=== PATIENT | female | born 1960 | race Caucasian/White ===

== ENCOUNTER 2020-04-15 09:47 | Inpatient (IN) | payer MEDICAID, OTHER ==
[2020-04-15] MEDS ORDERED: Sodium Chloride 0.9% 1,000 ML IV ONE (10:23)
[2020-04-15] MEDS ORDERED: Ondansetron 4 MG/2 ML SDV IVPUSH ONE (10:23)
[2020-04-15 10:56] LABS: CARBON DIOXIDE,CO2 5.7 mmol/L (21.0-32.0)
[2020-04-15] MEDS ORDERED: cefTRIAXone 2 GM in Premix Bag 1 BAG IV ONE (11:03)
[2020-04-15] MEDS ORDERED: Lactated Ringers 1,000 ML IV SCH (11:15)
--- NOTE | 2020-04-15 11:16 | EDM.PDOC ---
<Fela Bartlett - Last Filed: 04/15/20 16:44> ED HPI GENERAL MEDICAL PROBLEM - General Chief Complaint: Gastrointestinal Problem Stated Complaint: INFECTION Time Seen by Provider: 04/15/20 09:59 - History of Present Illness INITIAL COMMENTS - FREE TEXT/NARRATIVE: HISTORY AND PHYSICAL: History of present illness: Patient is a 60-year-old female who presents to the ED today with concern of vomiting, abdominal pain, and infection of her labia for the past 4 to 5 days. Patient states that she is had an infection of her labia for a few weeks and was placed on doxycycline and has been on this for 7 days. Patient states that she continues to have pain and some drainage of the labia. Patient states that 4 days ago she began vomiting and feeling unwell. Patient states today that she could not take the vomiting anymore so came to the ED to be evaluated. Patient states she also has some lower abdominal pain and has not had a bowel movement in 4 to 5 days. Patient states that she feels constipated. Patient states that she also feels slightly short of breath but not is not sure if this is related to vomiting. Patient denies fever, chills, chest pain, or cough. Denies headache, neck stiff ness, change in vision, syncope, or near syncope. Denies dysuria. Has not noted any blood in urine or stool. Review of systems: As per history of present illness and below otherwise all systems reviewed and negative. Past medical history: As per history of present illness and as reviewed below otherwise noncontributory. Surgical history: As per history of present illness and as reviewed below otherwise noncontributory. Social history: See social history for further information Family history: As per history of present illness and as reviewed below otherwise noncontributory. Physical exam: General: Patient is alert, oriented, and in no acute distress. Patient laying on exam table, periodically vomiting throughout exam, non toxic but tired appearing. HEENT: Atraumatic, normocephalic, pupils equal and reactive bilaterally, negative for conjunctival pallor or scleral icterus, mucous membranes dry, TMs normal bilaterally, throat clear, neck supple, nontender, trachea midline. No drooling or trismus noted. No meningeal signs. No hot potato voice noted. Lungs: Clear to auscultation, breath sounds equal bilaterally, chest nontender. Heart: S1S2, regular rate and rhythm without overt murmur Abdomen: Soft, nondistended, generalized abdominal tenderness. Scarring consistent with surgical history. Negative for masses or hepatosplenomegaly. Negative for costovertebral tenderness. Pelvis: Stable nontender. Genitourinary: There is a large, approximately 5cm abscess of the left labia majora with necrotic skin centrally over this area with surrounding cellulitis. This extends up into the mons pubis with area of induration from cellulitis. Rectal: Deferred. Skin: Intact, warm, dry. No lesions or rashes noted. Extremities: Atraumatic, negative for cords or calf pain. Neurovascular unremarkable. Neuro: Awake, alert, oriented. Cranial nerves II through XII unremarkable. Cerebellum unremarkable. Motor and sensory unremarkable throughout. Exam nonfocal. Notes: Dr. Chahal directly involved in patient care. Corrected sodium 145. Anion gap 30. Insulin Gtt started. Will switch to LR due to corrected Na being elevated. Dr. Esquivel, hospitalist, consulted on patient and has come in to personally evaluate patient. At this time, patient states she forgot to mention during initial HPI that she does have diabetes and manages this at home with diet and exercise and does not check sugars on a regular basis. I LINDSEY Jamison loan services professional, consulted on patient and states he will come in to personally see and evaluate the patient for further treatment of labial abscess. I do suspect that DKA is result from labial abscess/sepsis. Will admit to Dr. Esquivel, hospitalist on ICU inpatient with telemetry with consult to lindsey Jamison. Voices understanding and is agreeable to plan of care. Denies any further questions or concerns at this time. Diagnostics: CBC, CMP, UA/uhcg, EKG, Trop, Serum osmolality, Zofran, VBG, Abd/pelvic ct, blood culture x 2, lactate Therapeutics: 1LNS, LR 1.5L, Insulin gtt, Rocephin 2g IV, 1.5g Vancomycin IV Impression: Labial abscess Sepsis Diabetic Ketoacidosis Urinary tract infection Plan: Admit to Dr. Esquivel on telemetry ICU inpatient with consult to LINDSEY Jamison. Definitive disposition and diagnosis as appropriate pending reevaluation and review of above. abdominal/chest Pain Score (Numeric/FACES): 5 - Related Data Allergies Allergy/AdvReac Type Severity Reaction Status Date / Time Sulfa (Sulfonamide Allergy Hives Verified 04/15/20 09:57 Antibiotics) Home Meds: Home Meds . [No Known Home Meds] 04/15/20 [History] Past Medical History - Infectious Disease History Infectious Disease History: Reports: Chicken Pox - Past Surgical History Female Surgical History: Reports: Section Social & Family History - Family History Family Medical History: Noncontributory - Tobacco Use Smoking Status *Q: Never Smoker - Caffeine Use Caffeine Use: Reports: None - Recreational Drug Use Recreational Drug Use: No ED ROS GENERAL - Review of Systems Review Of Systems: Comprehensive ROS is negative, except as noted in HPI. ED EXAM, GENERAL - Physical Exam Exam: See Below (see dictation) Departure - Departure Time of Disposition: 16:53 Disposition: Admitted As Inpatient 68 Clinical Impression: Labial abscess Diabetic ketoacidosis Qualifiers: Diabetes mellitus type: other specified (including KIT) Diabetes mellitus complication detail: without coma Qualified Code(s): E13.10 - Other specified diabetes mellitus with ketoacidosis without coma Sepsis Qualifiers: Sepsis type: sepsis due to unspecified organism Sepsis acute organ dysfunction status: unspecified Qualified Code(s): A41.9 - Sepsis, unspecified organism Urinary tract infection Qualifiers: Urinary tract infection type: acute cystitis Hematuria presence: with hematuria Qualified Code(s): N30.01 - Acute cystitis with hematuria - Discharge Information Sepsis Event Note (ED) - Evaluation Sepsis Screening Result: No Definite Risk <Mohsen Chahal - Last Filed: 04/15/20 18:19> Course - Vital Signs Last Recorded V/S: Last Vital Signs Temp 98.1 F 04/15/20 17:00 Pulse 93 04/15/20 17:00 Resp 15 04/15/20 17:00 BP 119/63 04/15/20 17:00 Pulse Ox 99 04/15/20 17:00 - Orders/Labs/Meds Orders: Active Orders 24 hr Category Date Time Status EKG Documentation Completion [RC] STAT Care 04/15/20 10:26 Active CULTURE BLOOD [BC] Stat Lab 04/15/20 11:12 Received CULTURE BLOOD [BC] Stat Lab 04/15/20 11:28 Received CULTURE URINE [RM] Stat Lab 04/15/20 13:08 Received OSMOLALITY - SERUM [REF] Stat Lab 04/15/20 11:31 Received Insulin Regular, Human [NovoLIN R] 100 unit Med 04/15/20 11:15 Active Sodium Chloride 0.9% [Normal Saline] 99 ml IV TITRATE Lactated Ringers [Ringers, Lactated] 1,000 ml Med 04/15/20 11:15 Active IV ASDIRECTED Blood Culture x2 Reflex Set [OM.PC] Stat Oth 04/15/20 11:00 Ordered Medication Orders Lactated Ringer's (Ringers, Lactated) 1,000 mls @ 999 mls/hr IV ASDIRECTED ALISA Last Admin: 04/15/20 12:52 Dose: 999 mls/hr Documented by: MAGALY Insulin Human Regular 100 unit (/ Sodium Chloride) 100 mls @ 6 mls/hr IV TIT RATE ALISA; Protocol Last Titration: 04/15/20 18:17 Dose: 3 unit/hr, 3 mls/hr Documented by: SUSAN Cosigned by: DAWN Titration: 04/15/20 17:15 Dose: 4 unit/hr, 4 mls/hr Documented by: SUSAN Cosigned by: [email or web address] Titration: 04/15/20 16:07 Dose: 4 unit/hr, 4 mls/hr Documented by: SUSAN Cosigned by: [email or web address] Titration: 04/15/20 15:05 Dose: 6 unit/hr, 6 mls/hr Documented by: SUSAN Cosigned by: [email or web address] Titration: 04/15/20 14:21 Dose: 6 unit/hr, 6 mls/hr Documented by: SUSAN Cosigned by: [email or web address] Admin: 04/15/20 12:43 Dose: 6 unit/hr, 6 mls/hr Documented by: TE Cosigned by: MAGALY Lactated Ringer's (Ringers, Lactated) 1,000 mls @ 999 mls/hr IV ASDIRECTED ALISA Sodium Chloride (Normal Saline) 1,000 mls @ 200 mls/hr IV CONTINUOUS ONE Stop: 04/15/20 20:05 Last Admin: 04/15/20 15:31 Dose: 200 mls/hr Documented by: SUSAN Pantoprazole Sodium 40 mg/ (Sodium Chloride) 10 mls @ 300 mls/hr IV DAILY ON LICENSE OF [facility] Last Admin: 04/15/20 17:17 Dose: 300 mls/hr Documented by: AGUSTINSAN Ceftriaxone Sodium 1 gm/ (Sodium Chloride) 50 mls @ 100 mls/hr IV Q24H ON LICENSE OF [facility] Vancomycin HCl 1.25 gm/ Sodium (Chloride) 250 mls @ 166.667 mls/hr IV Q12H ON LICENSE OF [facility] Morphine Sulfate (Morphine) 1 mg IVPUSH Q3H PRN PRN Reason: Pain Ondansetron HCl (Zofran) 8 mg IVPUSH Q6H PRN PRN Reason: Nausea Vancomycin HCl (Pharmacy To Dose - Vancomycin) 1 dose .XX ASDIRECTED ON LICENSE OF [facility] Labs: Laboratory Tests 04/15/20 04/15/20 04/15/20 Range/Units 10:12 10:12 10:12 WBC 19.97 H (4.0-11.0) K/uL RBC 4.76 (4.30-5.90) M/uL Hgb 13.9 (12.0-16.0) g/dL Hct 42.6 (36.0-46.0) % MCV 89.5 (80.0-98.0) fL MCH 29.2 (27.0-32.0) pg MCHC 32.6 (31.0-37.0) g/dL RDW Std Deviation 42.8 (28.0-62.0) fl RDW Coeff of Harshil 13 (11.0-15.0) % Plt Count 554 H (150-400) K/uL MPV 9.90 (7.40-12.00) fL Add Manual Diff YES Neutrophils % (Manual) 69 (48.0-80.0) % Band Neutrophils % 13 % Lymphocytes % (Manual) 16 (16.0-40.0) % Monocytes % (Manual) 2 (0.0-15.0) % Nucleated RBC % 0.0 /100WBC Absolute Seg Neuts 13.8 H (1.4-5.7) Band Neutrophils # 2.6 Lymphocytes # (Manual) 3.2 H (0.6-2.4) Monocytes # (Manual) 0.4 (0.0-0.8) Nucleated RBCs # 0 K/uL VBG pH (7.31-7.41) VBG pCO2 (35-45) mmHG VBG pO2 (30-40) mmHG VBG HCO3 (22-30) mEq/L VBG Total CO2 (41-51) mmol/L VBG Base Excess (-3.0-3.0) Lactate (0.20-2.00) mmol/L Sodium 137 (136-145) mmol/L Potassium 5.0 (3.5-5.1) mmol/L Chloride 101 (98-107) mmol/L Carbon Dioxide 5.7 L (21.0-32.0) mmol/L BUN 16 (7.0-18.0) mg/dL Creatinine 1.2 H (0.6-1.0) mg/dL Est Cr Clr Drug Dosing 42.27 mL/min Estimated GFR (MDRD) 46.1 ml/min Glucose 424 H (74-106) mg/dL Hemoglobin A1c (4.5-6.2) % Calcium 9.5 (8.5-10.1) mg/dL Total Bilirubin 0.5 (0.2-1.0) mg/dL AST 11 L (15-37) IU/L ALT 15 (14-63) IU/L Alkaline Phosphatase 166 H (46-116) U/L Troponin I < 0.050 (0.000-0.056) ng/mL Total Protein 8.5 H (6.4-8.2) g/dL Albumin 3.3 L (3.4-5.0) g/dL Globulin 5.2 H (2.6-4.0) g/dL Albumin/Globulin Ratio 0.6 L (0.9-1.6) Lipase 78 (73-393) U/L Ketones (NEG) 04/15/20 04/15/20 04/15/20 Range/Units 10:12 10:12 10:12 WBC (4.0-11.0) K/uL RBC (4.30-5.90) M/uL Hgb (12.0-16.0) g/dL Hct (36.0-46.0) % MCV (80.0-98.0) fL MCH (27.0-32.0) pg MCHC (31.0-37.0) g/dL RDW Std Deviation (28.0-62.0) fl RDW Coeff of Harshil (11.0-15.0) % Plt Count (150-400) K/uL MPV (7.40-12.00) fL Add Manual Diff Neutrophils % (Manual) (48.0-80.0) % Band Neutrophils % % Lymphocytes % (Manual) (16.0-40.0) % Monocytes % (Manual) (0.0-15.0) % Nucleated RBC % /100WBC Absolute Seg Neuts (1.4-5.7) Band Neutrophils # Lymphocytes # (Manual) (0.6-2.4) Monocytes # (Manual) (0.0-0.8) Nucleated RBCs # K/uL VBG pH 7.04 L (7.31-7.41) VBG pCO2 20 L (35-45) mmHG VBG pO2 39 (30-40) mmHG VBG HCO3 5 L (22-30) mEq/L VBG Total CO2 5 L (41-51) mmol/L VBG Base Excess -23.7 L (-3.0-3.0) Lactate 1.8 (0.20-2.00) mmol/L Sodium (136-145) mmol/L Potassium (3.5-5.1) mmol/L Chloride (98-107) mmol/L Carbon Dioxide (21.0-32.0) mmol/L BUN (7.0-18.0) mg/dL Creatinine (0.6-1.0) mg/dL Est Cr Clr Drug Dosing mL/min Estimated GFR (MDRD) ml/min Glucose (74-106) mg/dL Hemoglobin A1c (4.5-6.2) % Calcium (8.5-10.1) mg/dL Total Bilirubin (0.2-1.0) mg/dL AST (15-37) IU/L ALT (14-63) IU/L Alkaline Phosphatase (46-116) U/L Troponin I (0.000-0.056) ng/mL Total Protein (6.4-8.2) g/dL Albumin (3.4-5.0) g/dL Globulin (2.6-4.0) g/dL Albumin/Globulin Ratio (0.9-1.6) Lipase (73-393) U/L Ketones SMALL H (NEG) 04/15/20 Range/Units 10:12 WBC (4.0-11.0) K/uL RBC (4.30-5.90) M/uL Hgb (12.0-16.0) g/dL Hct (36.0-46.0) % MCV (80.0-98.0) fL MCH (27.0-32.0) pg MCHC (31.0-37.0) g/dL RDW Std Deviation (28.0-62.0) fl RDW Coeff of Harshil (11.0-15.0) % Plt Count (150-400) K/uL MPV (7.40-12.00) fL Add Manual Diff Neutrophils % (Manual) (48.0-80.0) % Band Neutrophils % % Lymphocytes % (Manual) (16.0-40.0) % Monocytes % (Manual) (0.0-15.0) % Nucleated RBC % /100WBC Absolute Seg Neuts (1.4-5.7) Band Neutrophils # Lymphocytes # (Manual) (0.6-2.4) Monocytes # (Manual) (0.0-0.8) Nucleated RBCs # K/uL VBG pH (7.31-7.41) VBG pCO2 (35-45) mmHG VBG pO2 (30-40) mmHG VBG HCO3 (22-30) mEq/L VBG Total CO2 (41-51) mmol/L VBG Base Excess (-3.0-3.0) Lactate (0.20-2.00) mmol/L Sodium (136-145) mmol/L Potassium (3.5-5.1) mmol/L Chloride (98-107) mmol/L Carbon Dioxide (21.0-32.0) mmol/L BUN (7.0-18.0) mg/dL Creatinine (0.6-1.0) mg/dL Est Cr Clr Drug Dosing mL/min Estimated GFR (MDRD) ml/min Glucose (74-106) mg/dL Hemoglobin A1c 12.1 H (4.5-6.2) % Calcium (8.5-10.1) mg/dL Total Bilirubin (0.2-1.0) mg/dL AST (15-37) IU/L ALT (14-63) IU/L Alkaline Phosphatase (46-116) U/L Troponin I (0.000-0.056) ng/mL Total Protein (6.4-8.2) g/dL Albumin (3.4-5.0) g/dL Globulin (2.6-4.0) g/dL Albumin/Globulin Ratio (0.9-1.6) Lipase (73-393) U/L Ketones (NEG) Meds: Medications Generic Name Dose Route Start Last Admin Trade Name Freq PRN Reason Stop Dose Admin Lactated Ringer's 1,000 mls @ 999 mls/hr 04/15/20 11:15 04/15/20 12:52 Ringers, Lactated IV 999 mls/hr ASDIRECTED ALISA Administration Insulin Human Regular 100 unit 100 mls @ 6 mls/hr 04/15/20 11:15 04/15/20 18:17 / Sodium Chloride IV 3 unit/hr TITRATE ALISA 3 mls/hr Titration Protocol 6 UNIT/HR Lactated Ringer's 1,000 mls @ 999 mls/hr 04/15/20 11:15 Ringers, Lactated IV ASDIRECTED ALISA Sodium Chloride 1,000 mls @ 200 mls/hr 04/15/20 15:06 04/15/20 15:31 Normal Saline IV 04/15/20 20:05 200 mls/hr CONTINUOUS ONE Administration Pantoprazole Sodium 40 mg/ 10 mls @ 300 mls/hr 04/15/20 16:15 04/15/20 17:17 Sodium Chloride IV 300 mls/hr DAILY ALISA Administration Ceftriaxone Sodium 1 gm/ 50 mls @ 100 mls/hr 04/16/20 12:00 Sodium Chloride IV Q24H ALISA Vancomycin HCl 1.25 gm/ Sodium 250 mls @ 166.667 mls/hr 04/16/20 01:00 Chloride IV Q12H ALISA Morphine Sulfate 1 mg 04/15/20 16:11 Morphine IVPUSH Q3H PRN Pain Ondansetron HCl 8 mg 04/15/20 15:09 Zofran IVPUSH Q6H PRN Nausea Vancomycin HCl 1 dose 04/15/20 17:30 Pharmacy To Dose - Vancomycin .XX ASDIRECTED ALISA Discontinued Medications Generic Name Dose Route Start Last Admin Trade Name Freq PRN Reason Stop Dose Admin Sodium Chloride 1,000 mls @ 999 mls/hr 04/15/20 10:23 04/15/20 10:37 Normal Saline IV 04/15/20 11:23 999 mls/hr BOLUS ONE Administration Ceftriaxone Sodium/Dextrose 2 50 mls @ 100 mls/hr 04/15/20 11:03 04/15/20 11:14 gm/ Premix IV 04/15/20 11:32 100 mls/hr ONETIME ONE Administration Vancomycin HCl 1.5 gm/ Premix 300 mls @ 150 mls/hr 04/15/20 12:30 04/15/20 12:52 IV 04/15/20 14:29 150 mls/hr ONETIME ONE Administration Insulin Human Regular Confirm 04/15/20 12:46 04/15/20 12:52 Novolin R Administered 04/15/20 12:47 Not Given Dose 1,000 unit .ROUTE .STK-MED ONE Iopamidol 80 ml 04/15/20 13:07 04/15/20 13:08 Isovue Multipack-370 (76%) IVPUSH 04/15/20 13:08 80 ml ONETIME ONE Administration Ondansetron HCl 4 mg 04/15/20 10:23 04/15/20 10:37 Zofran IVPUSH 04/15/20 10:24 4 mg ONETIME ONE Administration Sepsis Event Note (ED) - Focused Exam Vital Signs: Vital Signs Temp Pulse Resp BP Pulse Ox 04/15/20 10:18 95 131/75 100 04/15/20 09:57 97.7 F 96 20 139/67 99
--- NOTE | 2020-04-15 11:22 | PCM.SN.2 ---
- Free Text/Narrative Note: Attending physician note I have seen and evaluated the patient with the advanced practice provider. Chief Complaint: And vomiting Brief HPI: 60-year-old female presents with generalized malaise, nausea, vomiting and no bowel movements with diffuse nonspecific abdominal pain. No previous history of diabetes. ROS: Reviewed and agree Focused Exam: VITAL SIGNS: Reviewed. GENERAL: Awake, conversant, GCS 15, appears moderately ill HEAD: No visible signs of trauma EYES: Pupils equal, EOM grossly intact EARS: Hearing grossly intact. MOUTH: No visible lesions, dry mucous membranes NECK: Appears supple CHEST: Tachypnea is present without accessory muscle use, clear lung sounds CARDIAC: Tachycardia. Regular rhythm. ABDOMEN: Soft, diffusely tender without focal findings. No rebound or guarding. No pulsatile mass. No masses. NEUROLOGIC EXAM: Awake and Alert, non-focal SKIN: No visible rashes EXTREMITIES: No deformities noted VASCULAR: Appears well perfused 12 lead EKG interpretation Obtained: April 15, 2020 at 10:42 AM Rhythm: Sinus tachycardia Rate: 101 Ione: Left Ione deviation Intervals: Left anterior fascicular block pattern is present ST/T Segments: ST depressions in leads V4, V5 and V6 less than 1 mm Interpretation: Sinus tachycardia with left axis deviation and ST depressions in V4 through V6 Procedure: Limited Abdominal Ultrasound - evaluation for small bowel obstruction Performed and interpreted by me; images recorded and archived Indication: Abdominal distention, vomiting and concern for small bowel obstruction Findings: -Multiple dilated loops of bowel are not present -No evidence of peristalsis or fluid-filled bowels -No free fluid noted Interpretation: Small bowel obstruction highly unlikely Signed by Mohsen Chahal M.D. Critical Care Note: The patient presented in critical status due to acute diabetic ketoacidosis with elevated anion gap and concern for early sepsis The patient required rapid exam, decision making, and frequent re-evaluations during their time in the Emergency Department. Total Critical Care time exclusive of all other billable procedure time provided by myself 77 minutes Differential diagnosis and medical decision making: I considered the following entities in the differential diagnosis: hypoglycemia, electrolyte imbalance, sepsis, toxidrome/intoxication/medication effect, seizure or postictal state, acid/base disturbance, diabetic ketoacidosis. The patient has an elevated anion gap greater than 30, very low bicarb, leukocytosis, and Assessment & Plan: 1. Diabetic ketoacidosis new diagnosis 2. Corrected sodium shows hyponatremia 145 3. Leukocytosis with left shift and bandemia 4. Metabolic acidosis with elevated anion gap greater than 30 5. Normal renal function with creatinine 1.2 6. Elevated potassium at 5.0 7. Severe dehydration We will start an insulin drip without bolus given recommendations that show bolus dosing of insulin increases morbidity and mortality and may lead to cerebral edema. The patient does not require potassium added to her IV fluids at this point. Given the corrected sodium of 145 (Espitia correction) we will switch from normal saline after initial bolus to lactated Ringer's. Given the patient has a leukocytosis with left shift and bandemia we will give empiric antibiotics. The metabolic acidosis and elevated anion gap are likely secondary to the patient's DKA however a lactate is pending. Blood cultures are also pending. We will also perform a vaginal exam to look for occult infection.
[2020-04-15] MEDS ORDERED: Vancomycin 1,500 GM in Sodium Chloride 0.9% 250 ML IV ONE (11:44)
[2020-04-15] MEDS ORDERED: Insulin Regular, Human 100 Units/ML 10 ML Vial ONE (12:46)
[2020-04-15] MEDS ORDERED: Iopamidol 755 MG/ML 200 ML Multipack Bottle IVPUSH ONE (13:07)
--- NOTE | 2020-04-15 13:30 | CT ---
Indication: Labial abscess Technique: Postcontrast CT pelvis performed. 80 cc Isovue 370 administered intravenously. Please note that all CT scans at this facility use dose modulation, iterative reconstruction, and/or weight-based dosing when appropriate to reduce radiation dose to as low as reasonably achievable. Comparison: No comparisons Findings: Left labral subcutaneous fluid collection is present measuring 4.3 x 2.2 x 3.5 centimeter) AP, LR, cc). Adjacent stranding noted. Some of the fluid extends into the superolateral subcutaneous fat. Adjacent reactive left inguinal lymph nodes. Bladder distended. No adnexal mass. Uterus normal. No bowel obstruction. Postoperative changes to the lower abdominal wall. Degenerative changes. No fracture. No free air. Impression: Left labral subcutaneous abscess measuring 4.3 x 2.2 x 3.5 centimeters with adjacent inflammatory stranding and fluid extending superolaterally. Please note that all CT scans at this facility use dose modulation, iterative reconstruction, and/or weight-based dosing when appropriate to reduce radiation dose to as low as reasonably achievable. Dictated by Adam Zendejas MD @ Apr 15 2020 1:25PM Signed by Dr. Adam Zendejas @ Apr 15 2020 1:29PM
--- NOTE | 2020-04-15 13:49 | CR ---
INDICATION: Shortness of breath TECHNIQUE: Single view chest. FINDINGS: The lungs are clear. The heart, mediastinum and pulmonary vessels are of normal size. There is no evidence of pleural disease. IMPRESSION: Negative chest. Dictated by Chiara Méndez MD @ Apr 15 2020 1:47PM Signed by Dr. Chiara Méndez @ Apr 15 2020 1:48PM
[2020-04-15] MEDS: Lactated Ringers 1,000 ML IV SCH (15:15)
[2020-04-15] MEDS: Sodium Chloride 0.9% 1,000 ML IV ONE ×2 (15:31→20:14)
[2020-04-15 15:38] LABS: CARBON DIOXIDE,CO2 5.2 mmol/L (21.0-32.0); POTASSIUM,K 4.5 mmol/L (3.5-5.1)
[2020-04-15 15:42] LABS: HEMOGLOBIN A1C 12.1 % (4.5-6.2)
--- NOTE | 2020-04-15 16:23 | PCM.HP.2 ---
H&P History of Present Illness - General Date of Service: 04/15/20 Admit Problem/Dx: Admission Diagnosis/Problem Admission Diagnosis/Problem Diabetic ketoacidosis Source of Information: Patient History Limitations: Reports: No Limitations - History of Present Illness Initial Comments - Free Text/Narative: Patient is a 60-year-old female with significant past medical history of type 2 diabetes presenting today with increasing nausea and vomiting x4 to 5 days and worsening infection over her labia. Was placed on doxycycline provided from an outpatient facility 7 days prior and for completed the course however noticed that the drainage from the labia increasing and nausea and vomiting had worsened. Denies any fevers or chills but has noted no bowel movements x 3 to 4 days. Diabetes: Mentions being diagnosed with diabetes many years earlier and had made an effort to lose weight; succeeded in losing 100 pounds and believes her diabetes had been under control. Denies any recent increase in urination, hunger or polyuria. ED course: Anion gap noted of 30; insulin drip started with concerns for diabetic ketoacidosis 2 L of fluid provided; Leukocytosis in setting of labial abscess as confirmed on CT pelvis: Patient started on vancomycin and ceftriaxone; Lactic acid 1.5; patient afebrile; with nominal blood pressure. Consultation to OB provider from ED placed for abscess formation in left labial majora Bedside; patient complaining of increasing thirst and mild nausea; states abdominal pain is improving but is complaining of pain in her groin has not changed. abdominal/chest Pain Score (Numeric/FACES): 5 - Related Data Allergies/Adverse Reactions: Allergies Allergy/AdvReac Type Severity Reaction Status Date / Time Sulfa (Sulfonamide Allergy Hives Verified 04/15/20 09:57 Antibiotics) Home Medications: Home Meds . [No Known Home Meds] 04/15/20 [History] Past Medical History - Infectious Disease History Infectious Disease History: Reports: Chicken Pox - Past Surgical History Female Surgical History: Reports: Section Social & Family History - Family History Family Medical History: Noncontributory - Tobacco Use Smoking Status *Q: Never Smoker - Caffeine Use Caffeine Use: Reports: None - Recreational Drug Use Recreational Drug Use: No H&P Review of Systems - Review of Systems: Review Of Systems: See Below General: Reports: Chills, Fatigue. Denies: Fever HEENT: Reports: No Symptoms Pulmonary: Reports: No Symptoms Cardiovascular: Reports: No Symptoms Gastrointestinal: Reports: Constipation, Decreased Appetite, Nausea, Other (one small stool this AM w. some blood ). Denies: Abdominal Pain, Diarrhea Genitourinary: Reports: No Symptoms Musculoskeletal: Reports: No Symptoms Skin: Reports: No Symptoms Psychiatric: Reports: No Symptoms Neurological: Reports: No Symptoms Exam - Exam Exam: See Below - Vital Signs Vital Signs: Last Vital Signs Temp 98.8 F 04/15/20 15:00 Pulse 97 04/15/20 15:00 Resp 21 H 04/15/20 15:00 BP 114/61 04/15/20 15:00 Pulse Ox 99 04/15/20 15:00 Weight: 85.275 kg - Exam Quality Assessment: No: Supplemental Oxygen General: Alert, Oriented, Cooperative HEENT: EOMI, Other (oral mucosa dry; sucking on ice chips during bedside examination ) Neck: Supple, Trachea Midline Lungs: Clear to Auscultation, Normal Respiratory Effort Cardiovascular: Regular Rate, Regular Rhythm GI/Abdominal Exam: Soft (Female) Exam: Other (8 cm lesion w. central necrosis noted w. surrounding cellulitis; celluliutis extends to mon pubis w. induration (examination performed in ED w. attending kevin duncan staff at bedside) ) Back Exam: Full Range of Motion Extremities: Normal Inspection Skin: Warm Neurological: Cranial Nerves Intact Neuro Extensive - Mental Status: Alert, Oriented x3 - Patient Data Lab Results Last 24 hrs: Laboratory Results - last 24 hr 04/15/20 04/15/20 04/15/20 Range/Units 10:12 10:12 10:12 WBC 19.97 H (4.0-11.0) K/uL RBC 4.76 (4.30-5.90) M/uL Hgb 13.9 (12.0-16.0) g/dL Hct 42.6 (36.0-46.0) % MCV 89.5 (80.0-98.0) fL MCH 29.2 (27.0-32.0) pg MCHC 32.6 (31.0-37.0) g/dL RDW Std Deviation 42.8 (28.0-62.0) fl RDW Coeff of Harshil 13 (11.0-15.0) % Plt Count 554 H (150-400) K/uL MPV 9.90 (7.40-12.00) fL Add Manual Diff YES Neutrophils % (Manual) 69 (48.0-80.0) % Band Neutrophils % 13 % Lymphocytes % (Manual) 16 (16.0-40.0) % Monocytes % (Manual) 2 (0.0-15.0) % Nucleated RBC % 0.0 /100WBC Absolute Seg Neuts 13.8 H (1.4-5.7) Band Neutrophils # 2.6 Lymphocytes # (Manual) 3.2 H (0.6-2.4) Monocytes # (Manual) 0.4 (0.0-0.8) Nucleated RBCs # 0 K/uL VBG pH (7.31-7.41) VBG pCO2 (35-45) mmHG VBG pO2 (30-40) mmHG VBG HCO3 (22-30) mEq/L VBG Total CO2 (41-51) mmol/L VBG Base Excess (-3.0-3.0) Lactate (0.20-2.00) mmol/L Sodium 137 (136-145) mmol/L Potassium 5.0 (3.5-5.1) mmol/L Chloride 101 (98-107) mmol/L Carbon Dioxide 5.7 L (21.0-32.0) mmol/L BUN 16 (7.0-18.0) mg/dL Creatinine 1.2 H (0.6-1.0) mg/dL Est Cr Clr Drug Dosing 42.27 mL/min Estimated GFR (MDRD) 46.1 ml/min Glucose 424 H (74-106) mg/dL POC Glucose (60-110) mg/dL Hemoglobin A1c (4.5-6.2) % Calcium 9.5 (8.5-10.1) mg/dL Total Bilirubin 0.5 (0.2-1.0) mg/dL AST 11 L (15-37) IU/L ALT 15 (14-63) IU/L Alkaline Phosphatase 166 H (46-116) U/L Troponin I < 0.050 (0.000-0.056) ng/mL Total Protein 8.5 H (6.4-8.2) g/dL Albumin 3.3 L (3.4-5.0) g/dL Globulin 5.2 H (2.6-4.0) g/dL Albumin/Globulin Ratio 0.6 L (0.9-1.6) Lipase 78 (73-393) U/L Urine Color Urine Appearance Urine pH (5.0-8.0) Ur Specific [place] (1.001-1.035) Urine Protein (NEGATIVE) mg/dL Urine Glucose (UA) (NEGATIVE) mg/dL Urine Ketones (NEGATIVE) mg/dL Urine Occult Blood (NEGATIVE) Urine Nitrite (NEGATIVE) Urine Bilirubin (NEGATIVE) Urine Urobilinogen (<2.0) EU/dL Ur Leukocyte Esterase (NEGATIVE) Urine RBC (0-2/HPF) Urine WBC (0-5/HPF) Ur Epithelial Cells (NONE-FEW) Urine Bacteria (NEGATIVE) Urine HCG, Qual (NEGATIVE) Ketones (NEG) COVID-19 (SULLY) (NEGATIVE) 04/15/20 04/15/20 04/15/20 Range/Units 10:12 10:12 10:12 WBC (4.0-11.0) K/uL RBC (4.30-5.90) M/uL Hgb (12.0-16.0) g/dL Hct (36.0-46.0) % MCV (80.0-98.0) fL MCH (27.0-32.0) pg MCHC (31.0-37.0) g/dL RDW Std Deviation (28.0-62.0) fl RDW Coeff of Harshil (11.0-15.0) % Plt Count (150-400) K/uL MPV (7.40-12.00) fL Add Manual Diff Neutrophils % (Manual) (48.0-80.0) % Band Neutrophils % % Lymphocytes % (Manual) (16.0-40.0) % Monocytes % (Manual) (0.0-15.0) % Nucleated RBC % /100WBC Absolute Seg Neuts (1.4-5.7) Band Neutrophils # Lymphocytes # (Manual) (0.6-2.4) Monocytes # (Manual) (0.0-0.8) Nucleated RBCs # K/uL VBG pH 7.04 L (7.31-7.41) VBG pCO2 20 L (35-45) mmHG VBG pO2 39 (30-40) mmHG VBG HCO3 5 L (22-30) mEq/L VBG Total CO2 5 L (41-51) mmol/L VBG Base Excess -23.7 L (-3.0-3.0) Lactate 1.8 (0.20-2.00) mmol/L Sodium (136-145) mmol/L Potassium (3.5-5.1) mmol/L Chloride (98-107) mmol/L Carbon Dioxide (21.0-32.0) mmol/L BUN (7.0-18.0) mg/dL Creatinine (0.6-1.0) mg/dL Est Cr Clr Drug Dosing mL/min Estimated GFR (MDRD) ml/min Glucose (74-106) mg/dL POC Glucose (60-110) mg/dL Hemoglobin A1c (4.5-6.2) % Calcium (8.5-10.1) mg/dL Total Bilirubin (0.2-1.0) mg/dL AST (15-37) IU/L ALT (14-63) IU/L Alkaline Phosphatase (46-116) U/L Troponin I (0.000-0.056) ng/mL Total Protein (6.4-8.2) g/dL Albumin (3.4-5.0) g/dL Globulin (2.6-4.0) g/dL Albumin/Globulin Ratio (0.9-1.6) Lipase (73-393) U/L Urine Color Urine Appearance Urine pH (5.0-8.0) Ur Specific [place] (1.001-1.035) Urine Protein (NEGATIVE) mg/dL Urine Glucose (UA) (NEGATIVE) mg/dL Urine Ketones (NEGATIVE) mg/dL Urine Occult Blood (NEGATIVE) Urine Nitrite (NEGATIVE) Urine Bilirubin (NEGATIVE) Urine Urobilinogen (<2.0) EU/dL Ur Leukocyte Esterase (NEGATIVE) Urine RBC (0-2/HPF) Urine WBC (0-5/HPF) Ur Epithelial Cells (NONE-FEW) Urine Bacteria (NEGATIVE) Urine HCG, Qual (NEGATIVE) Ketones SMALL H (NEG) COVID-19 (SULLY) (NEGATIVE) 04/15/20 04/15/20 04/15/20 Range/Units 10:12 12:48 13:08 WBC (4.0-11.0) K/uL RBC (4.30-5.90) M/uL Hgb (12.0-16.0) g/dL Hct (36.0-46.0) % MCV (80.0-98.0) fL MCH (27.0-32.0) pg MCHC (31.0-37.0) g/dL RDW Std Deviation (28.0-62.0) fl RDW Coeff of Harshil (11.0-15.0) % Plt Count (150-400) K/uL MPV (7.40-12.00) fL Add Manual Diff Neutrophils % (Manual) (48.0-80.0) % Band Neutrophils % % Lymphocytes % (Manual) (16.0-40.0) % Monocytes % (Manual) (0.0-15.0) % Nucleated RBC % /100WBC Absolute Seg Neuts (1.4-5.7) Band Neutrophils # Lymphocytes # (Manual) (0.6-2.4) Monocytes # (Manual) (0.0-0.8) Nucleated RBCs # K/uL VBG pH (7.31-7.41) VBG pCO2 (35-45) mmHG VBG pO2 (30-40) mmHG VBG HCO3 (22-30) mEq/L VBG Total CO2 (41-51) mmol/L VBG Base Excess (-3.0-3.0) Lactate (0.20-2.00) mmol/L Sodium (136-145) mmol/L Potassium (3.5-5.1) mmol/L Chloride (98-107) mmol/L Carbon Dioxide (21.0-32.0) mmol/L BUN (7.0-18.0) mg/dL Creatinine (0.6-1.0) mg/dL Est Cr Clr Drug Dosing mL/min Estimated GFR (MDRD) ml/min Glucose (74-106) mg/dL POC Glucose 387 H (60-110) mg/dL Hemoglobin A1c 12.1 H (4.5-6.2) % Calcium (8.5-10.1) mg/dL Total Bilirubin (0.2-1.0) mg/dL AST (15-37) IU/L ALT (14-63) IU/L Alkaline Phosphatase (46-116) U/L Troponin I (0.000-0.056) ng/mL Total Protein (6.4-8.2) g/dL Albumin (3.4-5.0) g/dL Globulin (2.6-4.0) g/dL Albumin/Globulin Ratio (0.9-1.6) Lipase (73-393) U/L Urine Color YELLOW Urine Appearance SLT CLOUDY Urine pH 5.5 (5.0-8.0) Ur Specific [place] >= 1.030 (1.001-1.035) Urine Protein 30 H (NEGATIVE) mg/dL Urine Glucose (UA) 500 H (NEGATIVE) mg/dL Urine Ketones >=80 (NEGATIVE) mg/dL Urine Occult Blood LARGE H (NEGATIVE) Urine Nitrite NEGATIVE (NEGATIVE) Urine Bilirubin NEGATIVE (NEGATIVE) Urine Urobilinogen 0.2 (<2.0) EU/dL Ur Leukocyte Esterase SMALL H (NEGATIVE) Urine RBC 5-7 (0-2/HPF) Urine WBC 8-10 (0-5/HPF) Ur Epithelial Cells OCCASIONAL (NONE-FEW) Urine Bacteria FEW (NEGATIVE) Urine HCG, Qual (NEGATIVE) Ketones (NEG) COVID-19 (SULLY) (NEGATIVE) 04/15/20 04/15/20 04/15/20 Range/Units 13:08 13:08 13:28 WBC (4.0-11.0) K/uL RBC (4.30-5.90) M/uL Hgb (12.0-16.0) g/dL Hct (36.0-46.0) % MCV (80.0-98.0) fL MCH (27.0-32.0) pg MCHC (31.0-37.0) g/dL RDW Std Deviation (28.0-62.0) fl RDW Coeff of Harshil (11.0-15.0) % Plt Count (150-400) K/uL MPV (7.40-12.00) fL Add Manual Diff Neutrophils % (Manual) (48.0-80.0) % Band Neutrophils % % Lymphocytes % (Manual) (16.0-40.0) % Monocytes % (Manual) (0.0-15.0) % Nucleated RBC % /100WBC Absolute Seg Neuts (1.4-5.7) Band Neutrophils # Lymphocytes # (Manual) (0.6-2.4) Monocytes # (Manual) (0.0-0.8) Nucleated RBCs # K/uL VBG pH (7.31-7.41) VBG pCO2 (35-45) mmHG VBG pO2 (30-40) mmHG VBG HCO3 (22-30) mEq/L VBG Total CO2 (41-51) mmol/L VBG Base Excess (-3.0-3.0) Lactate (0.20-2.00) mmol/L Sodium (136-145) mmol/L Potassium (3.5-5.1) mmol/L Chloride (98-107) mmol/L Carbon Dioxide (21.0-32.0) mmol/L BUN (7.0-18.0) mg/dL Creatinine (0.6-1.0) mg/dL Est Cr Clr Drug Dosing mL/min Estimated GFR (MDRD) ml/min Glucose (74-106) mg/dL POC Glucose 429 H (60-110) mg/dL Hemoglobin A1c (4.5-6.2) % Calcium (8.5-10.1) mg/dL Total Bilirubin (0.2-1.0) mg/dL AST (15-37) IU/L ALT (14-63) IU/L Alkaline Phosphatase (46-116) U/L Troponin I (0.000-0.056) ng/mL Total Protein (6.4-8.2) g/dL Albumin (3.4-5.0) g/dL Globulin (2.6-4.0) g/dL Albumin/Globulin Ratio (0.9-1.6) Lipase (73-393) U/L Urine Color Urine Appearance Urine pH (5.0-8.0) Ur Specific [place] (1.001-1.035) Urine Protein (NEGATIVE) mg/dL Urine Glucose (UA) (NEGATIVE) mg/dL Urine Ketones (NEGATIVE) mg/dL Urine Occult Blood (NEGATIVE) Urine Nitrite (NEGATIVE) Urine Bilirubin (NEGATIVE) Urine Urobilinogen (<2.0) EU/dL Ur Leukocyte Esterase (NEGATIVE) Urine RBC (0-2/HPF) Urine WBC (0-5/HPF) Ur Epithelial Cells (NONE-FEW) Urine Bacteria (NEGATIVE) Urine HCG, Qual NEGATIVE (NEGATIVE) Ketones (NEG) COVID-19 (SULLY) NEGATIVE (NEGATIVE) 04/15/20 04/15/20 04/15/20 Range/Units 14:20 15:02 15:15 WBC (4.0-11.0) K/uL RBC (4.30-5.90) M/uL Hgb (12.0-16.0) g/dL Hct (36.0-46.0) % MCV (80.0-98.0) fL MCH (27.0-32.0) pg MCHC (31.0-37.0) g/dL RDW Std Deviation (28.0-62.0) fl RDW Coeff of Harshil (11.0-15.0) % Plt Count (150-400) K/uL MPV (7.40-12.00) fL Add Manual Diff Neutrophils % (Manual) (48.0-80.0) % Band Neutrophils % % Lymphocytes % (Manual) (16.0-40.0) % Monocytes % (Manual) (0.0-15.0) % Nucleated RBC % /100WBC Absolute Seg Neuts (1.4-5.7) Band Neutrophils # Lymphocytes # (Manual) (0.6-2.4) Monocytes # (Manual) (0.0-0.8) Nucleated RBCs # K/uL VBG pH (7.31-7.41) VBG pCO2 (35-45) mmHG VBG pO2 (30-40) mmHG VBG HCO3 (22-30) mEq/L VBG Total CO2 (41-51) mmol/L VBG Base Excess (-3.0-3.0) Lactate 1.5 (0.20-2.00) mmol/L Sodium (136-145) mmol/L Potassium (3.5-5.1) mmol/L Chloride (98-107) mmol/L Carbon Dioxide (21.0-32.0) mmol/L BUN (7.0-18.0) mg/dL Creatinine (0.6-1.0) mg/dL Est Cr Clr Drug Dosing mL/min Estimated GFR (MDRD) ml/min Glucose (74-106) mg/dL POC Glucose 361 H 362 H (60-110) mg/dL Hemoglobin A1c (4.5-6.2) % Calcium (8.5-10.1) mg/dL Total Bilirubin (0.2-1.0) mg/dL AST (15-37) IU/L ALT (14-63) IU/L Alkaline Phosphatase (46-116) U/L Troponin I (0.000-0.056) ng/mL Total Protein (6.4-8.2) g/dL Albumin (3.4-5.0) g/dL Globulin (2.6-4.0) g/dL Albumin/Globulin Ratio (0.9-1.6) Lipase (73-393) U/L Urine Color Urine Appearance Urine pH (5.0-8.0) Ur Specific [place] (1.001-1.035) Urine Protein (NEGATIVE) mg/dL Urine Glucose (UA) (NEGATIVE) mg/dL Urine Ketones (NEGATIVE) mg/dL Urine Occult Blood (NEGATIVE) Urine Nitrite (NEGATIVE) Urine Bilirubin (NEGATIVE) Urine Urobilinogen (<2.0) EU/dL Ur Leukocyte Esterase (NEGATIVE) Urine RBC (0-2/HPF) Urine WBC (0-5/HPF) Ur Epithelial Cells (NONE-FEW) Urine Bacteria (NEGATIVE) Urine HCG, Qual (NEGATIVE) Ketones (NEG) COVID-19 (SULLY) (NEGATIVE) 04/15/20 04/15/20 04/15/20 Range/Units 15:15 15:15 16:05 WBC 20.11 H (4.0-11.0) K/uL RBC 4.73 (4.30-5.90) M/uL Hgb 13.7 (12.0-16.0) g/dL Hct 42.0 (36.0-46.0) % MCV 88.8 (80.0-98.0) fL MCH 29.0 (27.0-32.0) pg MCHC 32.6 (31.0-37.0) g/dL RDW Std Deviation 42.0 (28.0-62.0) fl RDW Coeff of Harshil 13 (11.0-15.0) % Plt Count 482 H (150-400) K/uL MPV 9.70 (7.40-12.00) fL Add Manual Diff YES Neutrophils % (Manual) 72 (48.0-80.0) % Band Neutrophils % 14 % Lymphocytes % (Manual) 10 L (16.0-40.0) % Monocytes % (Manual) 4 (0.0-15.0) % Nucleated RBC % 0.0 /100WBC Absolute Seg Neuts 14.5 H (1.4-5.7) Band Neutrophils # 2.8 Lymphocytes # (Manual) 2.0 (0.6-2.4) Monocytes # (Manual) 0.8 (0.0-0.8) Nucleated RBCs # 0 K/uL VBG pH (7.31-7.41) VBG pCO2 (35-45) mmHG VBG pO2 (30-40) mmHG VBG HCO3 (22-30) mEq/L VBG Total CO2 (41-51) mmol/L VBG Base Excess (-3.0-3.0) Lactate (0.20-2.00) mmol/L Sodium 141 (136-145) mmol/L Potassium 4.5 (3.5-5.1) mmol/L Chloride 107 (98-107) mmol/L Carbon Dioxide 5.2 L (21.0-32.0) mmol/L BUN 15 (7.0-18.0) mg/dL Creatinine 1.0 (0.6-1.0) mg/dL Est Cr Clr Drug Dosing 50.73 mL/min Estimated GFR (MDRD) 56.9 ml/min Glucose 374 H (74-106) mg/dL POC Glucose 306 H (60-110) mg/dL Hemoglobin A1c (4.5-6.2) % Calcium 8.8 (8.5-10.1) mg/dL Total Bilirubin (0.2-1.0) mg/dL AST (15-37) IU/L ALT (14-63) IU/L Alkaline Phosphatase (46-116) U/L Troponin I (0.000-0.056) ng/mL Total Protein (6.4-8.2) g/dL Albumin (3.4-5.0) g/dL Globulin (2.6-4.0) g/dL Albumin/Globulin Ratio (0.9-1.6) Lipase (73-393) U/L Urine Color Urine Appearance Urine pH (5.0-8.0) Ur Specific [place] (1.001-1.035) Urine Protein (NEGATIVE) mg/dL Urine Glucose (UA) (NEGATIVE) mg/dL Urine Ketones (NEGATIVE) mg/dL Urine Occult Blood (NEGATIVE) Urine Nitrite (NEGATIVE) Urine Bilirubin (NEGATIVE) Urine Urobilinogen (<2.0) EU/dL Ur Leukocyte Esterase (NEGATIVE) Urine RBC (0-2/HPF) Urine WBC (0-5/HPF) Ur Epithelial Cells (NONE-FEW) Urine Bacteria (NEGATIVE) Urine HCG, Qual (NEGATIVE) Ketones (NEG) COVID-19 (SULLY) (NEGATIVE) Result Diagrams: 04/15/20 15:15 04/15/20 15:15 Sepsis Event Note - Evaluation Sepsis Screening Result: No Definite Risk - Focused Exam Vital Signs: Vital Signs Temp Pulse Pulse Resp BP Pulse Ox 04/15/20 15:00 98.8 F 97 21 H 114/61 99 04/15/20 14:00 96.8 F L 98 21 H 128/62 99 04/15/20 11:48 100 116/60 99 04/15/20 11:20 100 112/93 H 99 04/15/20 10:18 95 131/75 100 04/15/20 09:57 97.7 F 96 20 139/67 99 Problem List Initiated/Reviewed/Updated: Yes Orders Last 24hrs: Active Orders 24 hr Category Date Time Status Admission Status [Patient Status] [ADT] Stat ADT 04/15/20 11:12 Active Antiembolic Devices [RC] PER UNIT ROUTINE Care 04/15/20 15:08 Active Communication Order [RC] STAT Care 04/15/20 15:12 Active EKG Documentation Completion [RC] STAT Care 04/15/20 10:26 Active Intake and Output [RC] ASDIRECTED Care 04/15/20 16:04 Active Notify Provider Consults [RC] ASDIRECTED Care 04/15/20 12:09 Active Consult to Physician [CONS] Stat Cons 04/15/20 12:09 Active NPO Now [Nothing per Oral Now Diet] [DIET] Diet 04/15/20 Dinner Active BASIC METABOLIC PANEL,BMP [CHEM] Q4H Lab 04/15/20 19:30 Ordered BASIC METABOLIC PANEL,BMP [CHEM] Q4H Lab 04/15/20 23:30 Ordered BASIC METABOLIC PANEL,BMP [CHEM] Q4H Lab 04/16/20 03:30 Ordered BASIC METABOLIC PANEL,BMP [CHEM] Q4H Lab 04/16/20 07:30 Ordered CULTURE BLOOD [BC] Stat Lab 04/15/20 11:12 Received CULTURE BLOOD [BC] Stat Lab 04/15/20 11:28 Received CULTURE URINE [RM] Stat Lab 04/15/20 13:08 Received OSMOLALITY - SERUM [REF] Stat Lab 04/15/20 11:31 Received Insulin Regular, Human [NovoLIN R] 100 unit Med 04/15/20 11:15 Active Sodium Chloride 0.9% [Normal Saline] 99 ml IV TITRATE Lactated Ringers [Ringers, Lactated] 1,000 ml Med 04/15/20 11:15 Active IV ASDIRECTED Lactated Ringers [Ringers, Lactated] 1,000 ml Med 04/15/20 11:15 Active IV ASDIRECTED Morphine Med 04/15/20 16:11 Active 1 mg IVPUSH Q3H PRN Ondansetron [Zofran] Med 04/15/20 15:09 Active 8 mg IVPUSH Q6H PRN Pantoprazole [ProTONIX IV] 40 mg Med 04/15/20 16:15 Active Sodium Chloride 0.9% [Normal Saline] 10 ml IV DAILY Sodium Chloride 0.9% [Normal Saline] 1,000 ml Med 04/15/20 15:06 Active IV CONTINUOUS Blood Culture x2 Reflex Set [OM.PC] Stat Oth 04/15/20 11:00 Ordered Sequential Compression Device [OM.PC] Routine Oth 04/15/20 15:08 Ordered Code Status [Resuscitation Status] Routine Resus Stat 04/15/20 15:37 Ordered Medication Orders Lactated Ringer's (Ringers, Lactated) 1,000 mls @ 999 mls/hr IV ASDIRECTED ALISA Last Admin: 04/15/20 12:52 Dose: 999 mls/hr Documented by: MAGALY Insulin Human Regular 100 unit (/ Sodium Chloride) 100 mls @ 6 mls/hr IV TITRATE ALISA; Protocol Last Titration: 04/15/20 16:07 Dose: 4 unit/hr, 4 mls/hr Documented by: SUSAN Cosigned by: [id number] Titration: 04/15/20 15:05 Dose: 6 unit/hr, 6 mls/hr Documented by: SUSAN Mcintyreigned by: [id number] Titration: 04/15/20 14:21 Dose: 6 unit/hr, 6 mls/hr Documented by: SUSAN Middleton by: [id number] Admin: 04/15/20 12:43 Dose: 6 unit/hr, 6 mls/hr Documented by: TE Cosigned by: MAGALY Lactated Ringer's (Ringers, Lactated) 1,000 mls @ 999 mls/hr IV ASDIRECTED ALISA Sodium Chloride (Normal Saline) 1,000 mls @ 200 mls/hr IV CONTINUOUS ONE Stop: 04/15/20 20:05 Last Admin: 04/15/20 15:31 Dose: 200 mls/hr Documented by: SUSAN Pantoprazole Sodium 40 mg/ (Sodium Chloride) 10 mls @ 300 mls/hr IV DAILY ALISA Morphine Sulfate (Morphine) 1 mg IVPUSH Q3H PRN PRN Reason: Pain Ondansetron HCl (Zofran) 8 mg IVPUSH Q6H PRN PRN Reason: Nausea Assessment/Plan Comment:: Assessment: 1. Labial Abscess formation w. cellulitis 2. DKA: primary metabolic acidosis w. increased Anion Gap w. superimposed respi ratory acidosis 3. DM w. A1c of 12 4. Mild TAE in setting of dehydration Plan Admit to inpatient. Full code. i/o's per routine. up ad nik DVT prophylaxis: SCD GI prophylaxis: pantoprazole 40 daily DIET: NPO + ice chips 1. Labial abscess formation: OB surgeon via ED consultation placed; will evaluate for possible I&D labial cellulitis: continue vancomycin + ceftriaxone (sulfa allergy) Bcx ordered. lactate <2.0. pt .stable and afebrile 2. DKA: receive total 4 L of fluids (NS + LR); continue at 1.5 maintenance of 200/hr. Continue to monitor hydration status A Recheck BMP q 4hours, hourly glucoses; replace electrolyses PRN, anticipate KCL replacement as needed Switch to Subq insulin once BG at 250 x 2 hours DM: A1c of 12; will need Diabetic consult once infectious process has been treated; most likely a good candidate w. insulin daily ; pt however is insulin naive Mild TAE in setting of dehydration insult; recheck BMP for improvement COVID negative
[2020-04-15] MEDS: Pantoprazole 40 MG in Sodium Chloride 0.9% 10 ML IV SCH (17:17)
[2020-04-15 20:10] LABS: CARBON DIOXIDE,CO2 13.4 mmol/L (21.0-32.0); POTASSIUM,K 4.4 mmol/L (3.5-5.1)
[2020-04-15] MEDS: Morphine 2 MG/ML SYRINGE IVPUSH PRN (22:17)
[2020-04-15 23:51] LABS: CARBON DIOXIDE,CO2 13.7 mmol/L (21.0-32.0); POTASSIUM,K 3.7 mmol/L (3.5-5.1)
[2020-04-16] MEDS: Dextrose 5%-0.45% NaCl 1,000 ML IV SCH ×2 (01:21→06:21)
[2020-04-16] MEDS: Ondansetron 4 MG/2 ML SDV IVPUSH PRN ×2 (02:35→20:57)
[2020-04-16 04:32] LABS: BLOOD UREA NITROGEN,BUN 15 mg/dL (7.0-18.0); CARBON DIOXIDE,CO2 15.9 mmol/L (21.0-32.0); CHLORIDE,CL 110 mmol/L (98-107); GLUCOSE RANDOM 299 mg/dL (74-106); POTASSIUM,K 3.3 mmol/L (3.5-5.1); SODIUM,NA 141 mmol/L (136-145)
[2020-04-16] MEDS ORDERED: Potassium Chloride Riders 40 MEQ in Premix Bag 1 BAG IV ONE (05:10)
[2020-04-16 07:34] LABS: BLOOD UREA NITROGEN,BUN 15 mg/dL (7.0-18.0); CARBON DIOXIDE,CO2 16.7 mmol/L (21.0-32.0); CHLORIDE,CL 110 mmol/L (98-107); GLUCOSE RANDOM 338 mg/dL (74-106); POTASSIUM,K 3.8 mmol/L (3.5-5.1); SODIUM,NA 140 mmol/L (136-145)
--- NOTE | 2020-04-16 08:47 | PN ---
THC Physician - Brief Progress [id number]/30/2020 08:37[facility] [place] - ISAIAS (MUNIRA) - ISAIAS SORAIDA LEMONSDate of Service 04/16/2020 08:37HPI/Event s of Note eICU admission [id number] female with past history of DM 2 presented to hospital with DKA and labial infection. Patient mentions she is been having progressively worsening nausea vomitin g over the last 5 days along with worsening labial infection. Patient was given doxycycline x7 days and was compliant but noticed increased drainage from her labia. In the ED patient was noted to be s lightly tachycardic with otherwise stable vitals. Initial lab work-up revealed significant leukocyto sis along with lab suggestive of DKA. Patient was started on vancomycin/ceftriaxone, given 2 L IV fl uid and initiated on insulin GTT and admitted to the ICU for closer monitoring.DKA-Likely secondary t o ongoing infectious process-Agree with aggressive volume resuscitation -Recommend starting DKA emani col with IVF with K replacement along with Insulin gtt-Repeat Chem7, BHB and VBG every 4 hours-Replac e electrolytes (phos replaced)Labial infection-Agree with empiric Abx per OB team (Vanc/Ceftriaxone). If patient has sepsis, persistent fevers or worsening cellulitis would recommend changing to Zosyn a t that time. -CT suggested L labral 4 x 2 x 3cm abscess. -Surgery consulted for consideration of I&DD VT prophy- lovenoxGI prophy- PPIThank you for allowing us to participate in the care of this patient. Interventions Major-Hyperglycemia - active titration of insulin therapy, Infection - evaluation and m anagement, Sepsis - evaluation and managementElectronically Signed by: CYNTHIA GILMORE) on 2019 08:46
[2020-04-16] MEDS ORDERED: Potassium Phosphates 15 MMOLE in Sodium Chloride 0.9% 250 ML IV ONE ×2 (08:50→09:30)
--- NOTE | 2020-04-16 08:57 | PCM.PREANE ---
Preanesthetic Assessment - Anesthesia/Transfusion/Family Hx Anesthesia History: No Prior Anesthesia Family History of Anesthesia Reaction: No - Physical Assessment NPO Status Date: 04/15/20 Vital Signs: Last Vital Signs Temp 98.2 F 04/16/20 04:00 Pulse 91 04/15/20 18:00 Resp 16 04/16/20 07:00 BP 132/67 04/16/20 07:00 Pulse Ox 96 04/16/20 07:00 Height: 5 ft 3 in Weight: 82.69 kg ASA Class: 3 Airway Class: Mallampati = 2 ROM/Head Extension: Full Lungs: Clear to Auscultation, Normal Respiratory Effort Cardiovascular: Regular Rate, Regular Rhythm - Lab Values: Laboratory Last Values WBC 13.06 K/uL (4.0-11.0) H 04/16/20 03:48 RBC 3.74 M/uL (4.30-5.90) L 04/16/20 03:48 Hgb 10.7 g/dL (12.0-16.0) L 04/16/20 03:48 Hct 32.1 % (36.0-46.0) L 04/16/20 03:48 MCV 85.8 fL (80.0-98.0) 04/16/20 03:48 MCH 28.6 pg (27.0-32.0) 04/16/20 03:48 MCHC 33.3 g/dL (31.0-37.0) 04/16/20 03:48 RDW Std Deviation 41.0 fl (28.0-62.0) 04/16/20 03:48 RDW Coeff of Harshil 13 % (11.0-15.0) 04/16/20 03:48 Plt Count 417 K/uL (150-400) H 04/16/20 03:48 MPV 9.30 fL (7.40-12.00) 04/16/20 03:48 Neut % (Auto) 80.1 % (48.0-80.0) H 04/16/20 03:48 Lymph % (Auto) 12.3 % (16.0-40.0) L 04/16/20 03:48 [place] % (Auto) 7.3 % (0.0-15.0) 04/16/20 03:48 Eos % (Auto) 0.2 % (0.0-7.0) 04/16/20 03:48 Baso % (Auto) 0.1 % (0.0-1.5) 04/16/20 03:48 Neut # (Auto) 10.5 K/uL (1.4-5.7) H 04/16/20 03:48 Lymph # (Auto) 1.6 K/uL (0.6-2.4) 04/16/20 03:48 [place] # (Auto) 1.0 K/uL (0.0-0.8) H 04/16/20 03:48 Eos # (Auto) 0.0 K/uL (0.0-0.7) 04/16/20 03:48 Baso # (Auto) 0.0 K/uL (0.0-0.1) 04/16/20 03:48 Add Manual Diff YES 04/15/20 15:15 Neutrophils % (Manual) 72 % (48.0-80.0) 04/15/20 15:15 Band Neutrophils % 14 % 04/15/20 15:15 Lymphocytes % (Manual) 10 % (16.0-40.0) L 04/15/20 15:15 Monocytes % (Manual) 4 % (0.0-15.0) 04/15/20 15:15 Nucleated RBC % 0.0 /100WBC 04/16/20 03:48 Absolute Seg Neuts 14.5 (1.4-5.7) H 04/15/20 15:15 Band Neutrophils # 2.8 04/15/20 15:15 Lymphocytes # (Manual) 2.0 (0.6-2.4) 04/15/20 15:15 Monocytes # (Manual) 0.8 (0.0-0.8) 04/15/20 15:15 Nucleated RBCs # 0 K/uL 04/16/20 03:48 INR 1.10 04/16/20 03:48 ABG pH 7.329 (7.35-7.45) L 04/16/20 08:35 ABG pCO2 29 mmHG (35-45) L 04/16/20 08:35 ABG pO2 76 mmHG (75-100) 04/16/20 08:35 ABG HCO3 15 mEq/L (22-26) L 04/16/20 08:35 ABG Total CO2 13.9 04/16/20 08:35 ABG Base Excess -9.6 (-2.0-2.0) L 04/16/20 08:35 VBG pH 7.04 (7.31-7.41) L 04/15/20 10:12 VBG pCO2 20 mmHG (35-45) L 04/15/20 10:12 VBG pO2 39 mmHG (30-40) 04/15/20 10:12 VBG HCO3 5 mEq/L (22-30) L 04/15/20 10:12 VBG Total CO2 5 mmol/L (41-51) L 04/15/20 10:12 VBG Base Excess -23.7 (-3.0-3.0) L 04/15/20 10:12 Lactate 1.5 mmol/L (0.20-2.00) 04/15/20 15:15 Sodium 140 mmol/L (136-145) 04/16/20 07:15 Potassium 3.8 mmol/L (3.5-5.1) 04/16/20 07:15 Chloride 110 mmol/L (98-107) H 04/16/20 07:15 Carbon Dioxide 16.7 mmol/L (21.0-32.0) L 04/16/20 07:15 BUN 15 mg/dL (7.0-18.0) 04/16/20 07:15 Creatinine 0.9 mg/dL (0.6-1.0) 04/16/20 07:15 Est Cr Clr Drug Dosing 56.36 mL/min 04/16/20 07:15 Estimated GFR (MDRD) > 60.0 ml/min 04/16/20 07:15 Glucose 338 mg/dL (74-106) H 04/16/20 07:15 POC Glucose 295 mg/dL (60-110) H 04/16/20 08:07 Hemoglobin A1c 12.1 % (4.5-6.2) H 04/15/20 10:12 Calcium 8.7 mg/dL (8.5-10.1) 04/16/20 07:15 Phosphorus 1.3 mg/dL (2.6-4.7) L 04/16/20 07:15 Magnesium 1.8 mg/dL (1.8-2.4) 04/16/20 07:15 Total Bilirubin 0.2 mg/dL (0.2-1.0) 04/16/20 03:48 AST 8 IU/L (15-37) L 04/16/20 03:48 ALT 9 IU/L (14-63) L 04/16/20 03:48 Alkaline Phosphatase 109 U/L (46-116) 04/16/20 03:48 Troponin I < 0.050 ng/mL (0.000-0.056) 04/15/20 10:12 Total Protein 6.1 g/dL (6.4-8.2) L 04/16/20 03:48 Albumin 2.3 g/dL (3.4-5.0) L 04/16/20 03:48 Globulin 3.8 g/dL (2.6-4.0) 04/16/20 03:48 Albumin/Globulin Ratio 0.6 (0.9-1.6) L 04/16/20 03:48 Lipase 78 U/L (73-393) 04/15/20 10:12 Urine Color YELLOW 04/15/20 13:08 Urine Appearance SLT CLOUDY 04/15/20 13:08 Urine pH 5.5 (5.0-8.0) 04/15/20 13:08 Ur Specific [place] >= 1.030 (1.001-1.035) 04/15/20 13:08 Urine Protein 30 mg/dL (NEGATIVE) H 04/15/20 13:08 Urine Glucose (UA) 500 mg/dL (NEGATIVE) H 04/15/20 13:08 Urine Ketones >=80 mg/dL (NEGATIVE) 04/15/20 13:08 Urine Occult Blood LARGE (NEGATIVE) H 04/15/20 13:08 Urine Nitrite NEGATIVE (NEGATIVE) 04/15/20 13:08 Urine Bilirubin NEGATIVE (NEGATIVE) 04/15/20 13:08 Urine Urobilinogen 0.2 EU/dL (<2.0) 04/15/20 13:08 Ur Leukocyte Esterase SMALL (NEGATIVE) H 04/15/20 13:08 Urine RBC 5-7 (0-2/HPF) 04/15/20 13:08 Urine WBC 8-10 (0-5/HPF) 04/15/20 13:08 Ur Epithelial Cells OCCASIONAL (NONE-FEW) 04/15/20 13:08 Urine Bacteria FEW (NEGATIVE) 04/15/20 13:08 Urine HCG, Qual NEGATIVE (NEGATIVE) 04/15/20 13:08 Ketones SMALL (NEG) H 04/16/20 07:15 COVID-19 (S[place]Y) NEGATIVE (NEGATIVE) 04/15/20 13:08 - Allergies Allergies/Adverse Reactions: Allergies Allergy/AdvReac Type Severity Reaction Status Date / Time Sulfa (Sulfonamide Allergy Hives Verified 04/15/20 09:57 Antibiotics) - Acknowledgements Anesthesia Type Planned: General Anesthesia Pt an Appropriate Candidate for the Planned Anesthesia: Yes Alternatives and Risks of Anesthesia Discussed w Pt/Guardian: Yes Pt/Guardian Understands and Agrees with Anesthesia Plan: Yes Additional Comments: Type 2 diabetic on insulin, Admitted in DKA, per ICu nurse has only rceived 2476 ml of iv fluids since admission including fluids in ED, has D5NS running with an insulin drip of 3 units per hour. Glucose at am was 338, anion gap was 13, cloride to sodium ratio was 78, K up to 3.8 since I started her on potassium replacement at 6 am. Serum Mg and serum lactate ordered to be run on blood previously collected at 7 am. RT was unable to collect an ABG at 730 am. I collected a specimine from what I believe was the L bracheal artery, but it was dark in color. May have been venous. Awaiting results. Would like to delay surgery untill patient has been fully rehydrated, and has been converted from an insulin infusion to sub Q insulin. I believe this may be possible to achieve by later today. PreAnesthesia Questionnaire - Past Health History Medical/Surgical History: Denies Medical/Surgical History HEENT History: Reports: Impaired Vision - Infectious Disease History Infectious Disease History: Reports: Chicken Pox - Past Surgical History Female Surgical History: Reports: Section - SUBSTANCE USE Smoking Status *Q: Never Smoker Recreational Drug Use History: No - HOME MEDS Home Medications: Home Meds . [No Known Home Meds] 04/15/20 [History] - CURRENT (IN HOUSE) MEDS Current Meds: Current Medications Lactated Ringer's (Ringers, Lactated) 1,000 mls @ 999 mls/hr IV ASDIRECTED ALISA Last Admin: 04/15/20 12:52 Dose: 999 mls/hr Documented by: Insulin Human Regular 100 unit (/ Sodium Chloride) 100 mls @ 6 mls/hr IV TITRATE ALISA; Protocol Last Titration: 04/16/20 08:00 Dose: 3 unit/hr, 3 mls/hr Documented by: Pantoprazole Sodium 40 mg/ (Sodium Chloride) 10 mls @ 300 mls/hr IV DAILY ALISA Last Admin: 04/15/20 17:17 Dose: 300 mls/hr Documented by: Ceftriaxone Sodium 1 gm/ (Sodium Chloride) 50 mls @ 100 mls/hr IV Q24H ALISA Vancomycin HCl 1.25 gm/ Sodium (Chloride) 250 mls @ 166.667 mls/hr IV Q12H ALISA Last Admin: 04/16/20 00:34 Dose: 166.667 mls/hr Documented by: Dextrose/Sodium Chloride (Dextrose 5%-1/2 Ns) 1,000 mls @ 200 mls/hr IV ASDIRECTED [facility] Last Admin: 04/16/20 06:21 Dose: 200 mls/hr Documented by: Potassium Chloride 40 meq/ (Premix) 100 mls @ 25 mls/hr IV ONETIME ONE Stop: 04/16/20 09:09 Last Admin: 04/16/20 05:20 Dose: 25 mls/hr Documented by: Lactated Ringer's (Ringers, Lactated) 1,000 mls @ 500 mls/hr IV ASDIRECTED [facility] Potassium Phosphate 15 mmole/ (Sodium Chloride) 255 mls @ 63.75 mls/hr IV NOW ONE Stop: 04/16/20 13:29 Morphine Sulfate (Morphine) 1 mg IVPUSH Q3H PRN PRN Reason: Pain Last Admin: 04/15/20 22:17 Dose: 1 mg Documented by: Ondansetron HCl (Zofran) 8 mg IVPUSH Q6H PRN PRN Reason: Nausea Last Admin: 04/16/20 02:35 Dose: 8 mg Documented by: Vancomycin HCl (Pharmacy To Dose - Vancomycin) 1 dose .XX ASDIRECTED [facility] Discontinued Medications Sodium Chloride (Normal Saline) 1,000 mls @ 999 mls/hr IV BOLUS ONE Stop: 04/15/20 11:23 Last Admin: 04/15/20 10:37 Dose: 999 mls/hr Documented by: Ceftriaxone Sodium/Dextrose 2 (gm/ Premix) 50 mls @ 100 mls/hr IV ONETIME ONE Stop: 04/15/20 11:32 Last Admin: 04/15/20 11:14 Dose: 100 mls/hr Documented by: Lactated Ringer's (Ringers, Lactated) 1,000 mls @ 999 mls/hr IV ASDIRECTED ALISA Last Admin: 04/15/20 15:15 Dose: 200 mls/hr Documented by: Vancomycin HCl 1.5 gm/ Premix 300 mls @ 150 mls/hr IV ONETIME ONE Stop: 04/15/20 14:29 Last Admin: 04/15/20 12:52 Dose: 150 mls/hr Documented by: Sodium Chloride (Normal Saline) 1,000 mls @ 200 mls/hr IV CONTINUOUS ONE Stop: 04/15/20 20:05 Last Admin: 04/15/20 20:14 Dose: 200 mls/hr Documented by: Insulin Human Regular (Novolin R) Confirm Administered Dose 1,000 unit .ROUTE .STK-MED ONE Stop: 04/15/20 12:47 Last Admin: 04/15/20 12:52 Dose: Not Given Documented by: Iopamidol (Isovue Multipack-370 (76%)) 80 ml IVPUSH ONETIME ONE Stop: 04/15/20 13:08 Last Admin: 04/15/20 13:08 Dose: 80 ml Documented by: Ondansetron HCl (Zofran) 4 mg IVPUSH ONETIME ONE Stop: 04/15/20 10:24 Last Admin: 04/15/20 10:37 Dose: 4 mg Documented by:
[2020-04-16] MEDS ORDERED: ceFAZolin 1 GM Vial ONE (08:58)
[2020-04-16] MEDS: Lactated Ringers 1,000 ML IV SCH ×2 (08:58→12:58)
[2020-04-16] MEDS: Pantoprazole 40 MG in Sodium Chloride 0.9% 10 ML IV SCH (09:10)
--- NOTE | 2020-04-16 09:24 | PCM.SN.2 ---
- Free Text/Narrative Note: anesthesia evaluation, 8 am pt still acidotic with + serum ketones, still has pos anion gap. ABG drawn by me show both acidosis and hypoxemia. Will start O2 by nasal cannulae if fluid report from ICU nurse is accurate pt has only had 2500 of iv fluids since admission including fluids in ED, If this is accurate the patient need additional fluid resuscitation, will order 2 liters of LR to be given over 4 hours, K now 3.8 since starting the iv potassium I ordered at 0600. Patient is significantly improved but not yet ready for surgery. After correction of acidosis, clearance of serum ketones, and conversion from iv insulin to SQ insulin, the patient will be a candidate for surgery. I have authorized unli mited clear liquids for the next 2 hours. If surgery is postponed until tomorrow (that decision has not yet been made), the patient may have unlimited clear liquids until 4 hours before her scheduled surgery.
[2020-04-16] MEDS: Morphine 2 MG/ML SYRINGE IVPUSH PRN ×2 (09:41→15:38)
--- NOTE | 2020-04-16 10:15 | PCM.PN ---
- General Info Date of Service: 04/16/20 Subjective Update: Pt states that she feels tired, Denies fever, chills, nausea, vomiting. SOB, chest pain. - Review of Systems General: Reports: No Symptoms HEENT: Reports: No Symptoms, Headaches Pulmonary: Reports: No Symptoms Cardiovascular: Reports: No Symptoms Gastrointestinal: Reports: No Symptoms Neurological: Reports: No Symptoms - Patient Data Vitals - Most Recent: Last Vital Signs Temp 98.2 F 04/16/20 04:00 Pulse 91 04/15/20 18:00 Resp 16 04/16/20 07:00 BP 132/67 04/16/20 07:00 Pulse Ox 96 04/16/20 07:00 Weight - Most Recent: 182 lb 4.8 oz I&O - Last 24 Hours: Intake & Output 04/15/20 04/16/20 04/16/20 22:59 06:59 14:59 Intake Total 697 2748 Output Total 400 Balance 297 2748 Lab Results Last 24 Hours: Laboratory Results - last 24 hr 04/15/20 04/15/20 04/15/20 Range/Units 10:12 10:12 10:12 WBC 19.97 H (4.0-11.0) K/uL RBC 4.76 (4.30-5.90) M/uL Hgb 13.9 (12.0-16.0) g/dL Hct 42.6 (36.0-46.0) % MCV 89.5 (80.0-98.0) fL MCH 29.2 (27.0-32.0) pg MCHC 32.6 (31.0-37.0) g/dL RDW Std Deviation 42.8 (28.0-62.0) fl RDW Coeff of Harshil 13 (11.0-15.0) % Plt Count 554 H (150-400) K/uL MPV 9.90 (7.40-12.00) fL Neut % (Auto) (48.0-80.0) % Lymph % (Auto) (16.0-40.0) % Hopkins % (Auto) (0.0-15.0) % Eos % (Auto) (0.0-7.0) % Baso % (Auto) (0.0-1.5) % Neut # (Auto) (1.4-5.7) K/uL Lymph # (Auto) (0.6-2.4) K/uL [place] # (Auto) (0.0-0.8) K/uL Eos # (Auto) (0.0-0.7) K/uL Baso # (Auto) (0.0-0.1) K/uL Add Manual Diff YES Neutrophils % (Manual) 69 (48.0-80.0) % Band Neutrophils % 13 % Lymphocytes % (Manual) 16 (16.0-40.0) % Monocytes % (Manual) 2 (0.0-15.0) % Nucleated RBC % 0.0 /100WBC Absolute Seg Neuts 13.8 H (1.4-5.7) Band Neutrophils # 2.6 Lymphocytes # (Manual) 3.2 H (0.6-2.4) Monocytes # (Manual) 0.4 (0.0-0.8) Nucleated RBCs # 0 K/uL INR ABG pH (7.35-7.45) ABG pCO2 (35-45) mmHG ABG pO2 (75-100) mmHG ABG HCO3 (22-26) mEq/L ABG Total CO2 ABG Base Excess (-2.0-2.0) VBG pH (7.31-7.41) VBG pCO2 (35-45) mmHG VBG pO2 (30-40) mmHG VBG HCO3 (22-30) mEq/L VBG Total CO2 (41-51) mmol/L VBG Base Excess (-3.0-3.0) Lactate (0.20-2.00) mmol/L Sodium 137 (136-145) mmol/L Potassium 5.0 (3.5-5.1) mmol/L Chloride 101 (98-107) mmol/L Carbon Dioxide 5.7 L (21.0-32.0) mmol/L BUN 16 (7.0-18.0) mg/dL Creatinine 1.2 H (0.6-1.0) mg/dL Est Cr Clr Drug Dosing 42.27 mL/min Estimated GFR (MDRD) 46.1 ml/min Glucose 424 H (74-106) mg/dL POC Glucose (60-110) mg/dL Hemoglobin A1c (4.5-6.2) % Calcium 9.5 (8.5-10.1) mg/dL Phosphorus (2.6-4.7) mg/dL Magnesium (1.8-2.4) mg/dL Total Bilirubin 0.5 (0.2-1.0) mg/dL AST 11 L (15-37) IU/L ALT 15 (14-63) IU/L Alkaline Phosphatase 166 H (46-116) U/L Troponin I < 0.050 (0.000-0.056) ng/mL Total Protein 8.5 H (6.4-8.2) g/dL Albumin 3.3 L (3.4-5.0) g/dL Globulin 5.2 H (2.6-4.0) g/dL Albumin/Globulin Ratio 0.6 L (0.9-1.6) Lipase 78 (73-393) U/L Urine Color Urine Appearance Urine pH (5.0-8.0) Ur Specific [place] (1.001-1.035) Urine Protein (NEGATIVE) mg/dL Urine Glucose (UA) (NEGATIVE) mg/dL Urine Ketones (NEGATIVE) mg/dL Urine Occult Blood (NEGATIVE) Urine Nitrite (NEGATIVE) Urine Bilirubin (NEGATIVE) Urine Urobilinogen (<2.0) EU/dL Ur Leukocyte Esterase (NEGATIVE) Urine RBC (0-2/HPF) Urine WBC (0-5/HPF) Ur Epithelial Cells (NONE-FEW) Urine Bacteria (NEGATIVE) Urine HCG, Qual (NEGATIVE) Ketones (NEG) COVID-19 ([facility]) (NEGATIVE) 04/15/20 04/15/20 04/15/20 Range/Units 10:12 10:12 10:12 WBC (4.0-11.0) K/uL RBC (4.30-5.90) M/uL Hgb (12.0-16.0) g/dL Hct (36.0-46.0) % MCV (80.0-98.0) fL MCH (27.0-32.0) pg MCHC (31.0-37.0) g/dL RDW Std Deviation (28.0-62.0) fl RDW Coeff of Harshil (11.0-15.0) % Plt Count (150-400) K/uL MPV (7.40-12.00) fL Neut % (Auto) (48.0-80.0) % Lymph % (Auto) (16.0-40.0) % Hopkins % (Auto) (0.0-15.0) % Eos % (Auto) (0.0-7.0) % Baso % (Auto) (0.0-1.5) % Neut # (Auto) (1.4-5.7) K/uL Lymph # (Auto) (0.6-2.4) K/uL [place] # (Auto) (0.0-0.8) K/uL Eos # (Auto) (0.0-0.7) K/uL Baso # (Auto) (0.0-0.1) K/uL Add Manual Diff Neutrophils % (Manual) (48.0-80.0) % Band Neutrophils % % Lymphocytes % (Manual) (16.0-40.0) % Monocytes % (Manual) (0.0-15.0) % Nucleated RBC % /100WBC Absolute Seg Neuts (1.4-5.7) Band Neutrophils # Lymphocytes # (Manual) (0.6-2.4) Monocytes # (Manual) (0.0-0.8) Nucleated RBCs # K/uL INR ABG pH (7.35-7.45) ABG pCO2 (35-45) mmHG ABG pO2 (75-100) mmHG ABG HCO3 (22-26) mEq/L ABG Total CO2 ABG Base Excess (-2.0-2.0) VBG pH 7.04 L (7.31-7.41) VBG pCO2 20 L (35-45) mmHG VBG pO2 39 (30-40) mmHG VBG HCO3 5 L (22-30) mEq/L VBG Total CO2 5 L (41-51) mmol/L VBG Base Excess -23.7 L (-3.0-3.0) Lactate 1.8 (0.20-2.00) mmol/L Sodium (136-145) mmol/L Potassium (3.5-5.1) mmol/L Chloride (98-107) mmol/L Carbon Dioxide (21.0-32.0) mmol/L BUN (7.0-18.0) mg/dL Creatinine (0.6-1.0) mg/dL Est Cr Clr Drug Dosing mL/min Estimated GFR (MDRD) ml/min Glucose (74-106) mg/dL POC Glucose (60-110) mg/dL Hemoglobin A1c (4.5-6.2) % Calcium (8.5-10.1) mg/dL Phosphorus (2.6-4.7) mg/dL Magnesium (1.8-2.4) mg/dL Total Bilirubin (0.2-1.0) mg/dL AST (15-37) IU/L ALT (14-63) IU/L Alkaline Phosphatase (46-116) U/L Troponin I (0.000-0.056) ng/mL Total Protein (6.4-8.2) g/dL Albumin (3.4-5.0) g/dL Globulin (2.6-4.0) g/dL Albumin/Globulin Ratio (0.9-1.6) Lipase (73-393) U/L Urine Color Urine Appearance Urine pH (5.0-8.0) Ur Specific [place] (1.001-1.035) Urine Protein (NEGATIVE) mg/dL Urine Glucose (UA) (NEGATIVE) mg/dL Urine Ketones (NEGATIVE) mg/dL Urine Occult Blood (NEGATIVE) Urine Nitrite (NEGATIVE) Urine Bilirubin (NEGATIVE) Urine Urobilinogen (<2.0) EU/dL Ur Leukocyte Esterase (NEGATIVE) Urine RBC (0-2/HPF) Urine WBC (0-5/HPF) Ur Epithelial Cells (NONE-FEW) Urine Bacteria (NEGATIVE) Urine HCG, Qual (NEGATIVE) Ketones SMALL H (NEG) COVID-19 ([facility]) (NEGATIVE) 04/15/20 04/15/20 04/15/20 Range/Units 10:12 12:48 13:08 WBC (4.0-11.0) K/uL RBC (4.30-5.90) M/uL Hgb (12.0-16.0) g/dL Hct (36.0-46.0) % MCV (80.0-98.0) fL MCH (27.0-32.0) pg MCHC (31.0-37.0) g/dL RDW Std Deviation (28.0-62.0) fl RDW Coeff of Harshil (11.0-15.0) % Plt Count (150-400) K/uL MPV (7.40-12.00) fL Neut % (Auto) (48.0-80.0) % Lymph % (Auto) (16.0-40.0) % Hopkins % (Auto) (0.0-15.0) % Eos % (Auto) (0.0-7.0) % Baso % (Auto) (0.0-1.5) % Neut # (Auto) (1.4-5.7) K/uL Lymph # (Auto) (0.6-2.4) K/uL Hopkins # (Auto) (0.0-0.8) K/uL Eos # (Auto) (0.0-0.7) K/uL Baso # (Auto) (0.0-0.1) K/uL Add Manual Diff Neutrophils % (Manual) (48.0-80.0) % Band Neutrophils % % Lymphocytes % (Manual) (16.0-40.0) % Monocytes % (Manual) (0.0-15.0) % Nucleated RBC % /100WBC Absolute Seg Neuts (1.4-5.7) Band Neutrophils # Lymphocytes # (Manual) (0.6-2.4) Monocytes # (Manual) (0.0-0.8) Nucleated RBCs # K/uL INR ABG pH (7.35-7.45) ABG pCO2 (35-45) mmHG ABG pO2 (75-100) mmHG ABG HCO3 (22-26) mEq/L ABG Total CO2 ABG Base Excess (-2.0-2.0) VBG pH (7.31-7.41) VBG pCO2 (35-45) mmHG VBG pO2 (30-40) mmHG VBG HCO3 (22-30) mEq/L VBG Total CO2 (41-51) mmol/L VBG Base Excess (-3.0-3.0) Lactate (0.20-2.00) mmol/L Sodium (136-145) mmol/L Potassium (3.5-5.1) mmol/L Chloride (98-107) mmol/L Carbon Dioxide (21.0-32.0) mmol/L BUN (7.0-18.0) mg/dL Creatinine (0.6-1.0) mg/dL Est Cr Clr Drug Dosing mL/min Estimated GFR (MDRD) ml/min Glucose (74-106) mg/dL POC Glucose 387 H (60-110) mg/dL Hemoglobin A1c 12.1 H (4.5-6.2) % Calcium (8.5-10.1) mg/dL Phosphorus (2.6-4.7) mg/dL Magnesium (1.8-2.4) mg/dL Total Bilirubin (0.2-1.0) mg/dL AST (15-37) IU/L ALT (14-63) IU/L Alkaline Phosphatase (46-116) U/L Troponin I (0.000-0.056) ng/mL Total Protein (6.4-8.2) g/dL Albumin (3.4-5.0) g/dL Globulin (2.6-4.0) g/dL Albumin/Globulin Ratio (0.9-1.6) Lipase (73-393) U/L Urine Color YELLOW Urine Appearance SLT CLOUDY Urine pH 5.5 (5.0-8.0) Ur Specific [place] >= 1.030 (1.001-1.035) Urine Protein 30 H (NEGATIVE) mg/dL Urine Glucose (UA) 500 H (NEGATIVE) mg/dL Urine Ketones >=80 (NEGATIVE) mg/dL Urine Occult Blood LARGE H (NEGATIVE) Urine Nitrite NEGATIVE (NEGATIVE) Urine Bilirubin NEGATIVE (NEGATIVE) Urine Urobilinogen 0.2 (<2.0) EU/dL Ur Leukocyte Esterase SMALL H (NEGATIVE) Urine RBC 5-7 (0-2/HPF) Urine WBC 8-10 (0-5/HPF) Ur Epithelial Cells OCCASIONAL (NONE-FEW) Urine Bacteria FEW (NEGATIVE) Urine HCG, Qual (NEGATIVE) Ketones (NEG) COVID-19 ([facility]) (NEGATIVE) 04/15/20 04/15/20 04/15/20 Range/Units 13:08 13:08 13:28 WBC (4.0-11.0) K/uL RBC (4.30-5.90) M/uL Hgb (12.0-16.0) g/dL Hct (36.0-46.0) % MCV (80.0-98.0) fL MCH (27.0-32.0) pg MCHC (31.0-37.0) g/dL RDW Std Deviation (28.0-62.0) fl RDW Coeff of Harshil (11.0-15.0) % Plt Count (150-400) K/uL MPV (7.40-12.00) fL Neut % (Auto) (48.0-80.0) % Lymph % (Auto) (16.0-40.0) % Hopkins % (Auto) (0.0-15.0) % Eos % (Auto) (0.0-7.0) % Baso % (Auto) (0.0-1.5) % Neut # (Auto) (1.4-5.7) K/uL Lymph # (Auto) (0.6-2.4) K/uL [place] # (Auto) (0.0-0.8) K/uL Eos # (Auto) (0.0-0.7) K/uL Baso # (Auto) (0.0-0.1) K/uL Add Manual Diff Neutrophils % (Manual) (48.0-80.0) % Band Neutrophils % % Lymphocytes % (Manual) (16.0-40.0) % Monocytes % (Manual) (0.0-15.0) % Nucleated RBC % /100WBC Absolute Seg Neuts (1.4-5.7) Band Neutrophils # Lymphocytes # (Manual) (0.6-2.4) Monocytes # (Manual) (0.0-0.8) Nucleated RBCs # K/uL INR ABG pH (7.35-7.45) ABG pCO2 (35-45) mmHG ABG pO2 (75-100) mmHG ABG HCO3 (22-26) mEq/L ABG Total CO2 ABG Base Excess (-2.0-2.0) VBG pH (7.31-7.41) VBG pCO2 (35-45) mmHG VBG pO2 (30-40) mmHG VBG HCO3 (22-30) mEq/L VBG Total CO2 (41-51) mmol/L VBG Base Excess (-3.0-3.0) Lactate (0.20-2.00) mmol/L Sodium (136-145) mmol/L Potassium (3.5-5.1) mmol/L Chloride (98-107) mmol/L Carbon Dioxide (21.0-32.0) mmol/L BUN (7.0-18.0) mg/dL Creatinine (0.6-1.0) mg/dL Est Cr Clr Drug Dosing mL/min Estimated GFR (MDRD) ml/min Glucose (74-106) mg/dL POC Glucose 429 H (60-110) mg/dL Hemoglobin A1c (4.5-6.2) % Calcium (8.5-10.1) mg/dL Phosphorus (2.6-4.7) mg/dL Magnesium (1.8-2.4) mg/dL Total Bilirubin (0.2-1.0) mg/dL AST (15-37) IU/L ALT (14-63) IU/L Alkaline Phosphatase (46-116) U/L Troponin I (0.000-0.056) ng/mL Total Protein (6.4-8.2) g/dL Albumin (3.4-5.0) g/dL Globulin (2.6-4.0) g/dL Albumin/Globulin Ratio (0.9-1.6) Lipase (73-393) U/L Urine Color Urine Appearance Urine pH (5.0-8.0) Ur Specific [place] (1.001-1.035) Urine Protein (NEGATIVE) mg/dL Urine Glucose (UA) (NEGATIVE) mg/dL Urine Ketones (NEGATIVE) mg/dL Urine Occult Blood (NEGATIVE) Urine Nitrite (NEGATIVE) Urine Bilirubin (NEGATIVE) Urine Urobilinogen (<2.0) EU/dL Ur Leukocyte Esterase (NEGATIVE) Urine RBC (0-2/HPF) Urine WBC (0-5/HPF) Ur Epithelial Cells (NONE-FEW) Urine Bacteria (NEGATIVE) Urine HCG, Qual NEGATIVE (NEGATIVE) Ketones (NEG) COVID-19 ([facility]) NEGATIVE (NEGATIVE) 04/15/20 04/15/20 04/15/20 Range/Units 14:20 15:02 15:15 WBC (4.0-11.0) K/uL RBC (4.30-5.90) M/uL Hgb (12.0-16.0) g/dL Hct (36.0-46.0) % MCV (80.0-98.0) fL MCH (27.0-32.0) pg MCHC (31.0-37.0) g/dL RDW Std Deviation (28.0-62.0) fl RDW Coeff of Harshil (11.0-15.0) % Plt Count (150-400) K/uL MPV (7.40-12.00) fL Neut % (Auto) (48.0-80.0) % Lymph % (Auto) (16.0-40.0) % [place] % (Auto) (0.0-15.0) % Eos % (Auto) (0.0-7.0) % Baso % (Auto) (0.0-1.5) % Neut # (Auto) (1.4-5.7) K/uL Lymph # (Auto) (0.6-2.4) K/uL [place] # (Auto) (0.0-0.8) K/uL Eos # (Auto) (0.0-0.7) K/uL Baso # (Auto) (0.0-0.1) K/uL Add Manual Diff Neutrophils % (Manual) (48.0-80.0) % Band Neutrophils % % Lymphocytes % (Manual) (16.0-40.0) % Monocytes % (Manual) (0.0-15.0) % Nucleated RBC % /100WBC Absolute Seg Neuts (1.4-5.7) Band Neutrophils # Lymphocytes # (Manual) (0.6-2.4) Monocytes # (Manual) (0.0-0.8) Nucleated RBCs # K/uL INR ABG pH (7.35-7.45) ABG pCO2 (35-45) mmHG ABG pO2 (75-100) mmHG ABG HCO3 (22-26) mEq/L ABG Total CO2 ABG Base Excess (-2.0-2.0) VBG pH (7.31-7.41) VBG pCO2 (35-45) mmHG VBG pO2 (30-40) mmHG VBG HCO3 (22-30) mEq/L VBG Total CO2 (41-51) mmol/L VBG Base Excess (-3.0-3.0) Lactate 1.5 (0.20-2.00) mmol/L Sodium (136-145) mmol/L Potassium (3.5-5.1) mmol/L Chloride (98-107) mmol/L Carbon Dioxide (21.0-32.0) mmol/L BUN (7.0-18.0) mg/dL Creatinine (0.6-1.0) mg/dL Est Cr Clr Drug Dosing mL/min Estimated GFR (MDRD) ml/min Glucose (74-106) mg/dL POC Glucose 361 H 362 H (60-110) mg/dL Hemoglobin A1c (4.5-6.2) % Calcium (8.5-10.1) mg/dL Phosphorus (2.6-4.7) mg/dL Magnesium (1.8-2.4) mg/dL Total Bilirubin (0.2-1.0) mg/dL AST (15-37) IU/L ALT (14-63) IU/L Alkaline Phosphatase (46-116) U/L Troponin I (0.000-0.056) ng/mL Total Protein (6.4-8.2) g/dL Albumin (3.4-5.0) g/dL Globulin (2.6-4.0) g/dL Albumin/Globulin Ratio (0.9-1.6) Lipase (73-393) U/L Urine Color Urine Appearance Urine pH (5.0-8.0) Ur Specific [place] (1.001-1.035) Urine Protein (NEGATIVE) mg/dL Urine Glucose (UA) (NEGATIVE) mg/dL Urine Ketones (NEGATIVE) mg/dL Urine Occult Blood (NEGATIVE) Urine Nitrite (NEGATIVE) Urine Bilirubin (NEGATIVE) Urine Urobilinogen (<2.0) EU/dL Ur Leukocyte Esterase (NEGATIVE) Urine RBC (0-2/HPF) Urine WBC (0-5/HPF) Ur Epithelial Cells (NONE-FEW) Urine Bacteria (NEGATIVE) Urine HCG, Qual (NEGATIVE) Ketones (NEG) COVID-19 ([facility]) (NEGATIVE) 04/15/20 04/15/20 04/15/20 Range/Units 15:15 15:15 16:05 WBC 20.11 H (4.0-11.0) K/uL RBC 4.73 (4.30-5.90) M/uL Hgb 13.7 (12.0-16.0) g/dL Hct 42.0 (36.0-46.0) % MCV 88.8 (80.0-98.0) fL MCH 29.0 (27.0-32.0) pg MCHC 32.6 (31.0-37.0) g/dL RDW Std Deviation 42.0 (28.0-62.0) fl RDW Coeff of Harshil 13 (11.0-15.0) % Plt Count 482 H (150-400) K/uL MPV 9.70 (7.40-12.00) fL Neut % (Auto) (48.0-80.0) % Lymph % (Auto) (16.0-40.0) % [place] % (Auto) (0.0-15.0) % Eos % (Auto) (0.0-7.0) % Baso % (Auto) (0.0-1.5) % Neut # (Auto) (1.4-5.7) K/uL Lymph # (Auto) (0.6-2.4) K/uL [place] # (Auto) (0.0-0.8) K/uL Eos # (Auto) (0.0-0.7) K/uL Baso # (Auto) (0.0-0.1) K/uL Add Manual Diff YES Neutrophils % (Manual) 72 (48.0-80.0) % Band Neutrophils % 14 % Lymphocytes % (Manual) 10 L (16.0-40.0) % Monocytes % (Manual) 4 (0.0-15.0) % Nucleated RBC % 0.0 /100WBC Absolute Seg Neuts 14.5 H (1.4-5.7) Band Neutrophils # 2.8 Lymphocytes # (Manual) 2.0 (0.6-2.4) Monocytes # (Manual) 0.8 (0.0-0.8) Nucleated RBCs # 0 K/uL INR ABG pH (7.35-7.45) ABG pCO2 (35-45) mmHG ABG pO2 (75-100) mmHG ABG HCO3 (22-26) mEq/L ABG Total CO2 ABG Base Excess (-2.0-2.0) VBG pH (7.31-7.41) VBG pCO2 (35-45) mmHG VBG pO2 (30-40) mmHG VBG HCO3 (22-30) mEq/L VBG Total CO2 (41-51) mmol/L VBG Base Excess (-3.0-3.0) Lactate (0.20-2.00) mmol/L Sodium 141 (136-145) mmol/L Potassium 4.5 (3.5-5.1) mmol/L Chloride 107 (98-107) mmol/L Carbon Dioxide 5.2 L (21.0-32.0) mmol/L BUN 15 (7.0-18.0) mg/dL Creatinine 1.0 (0.6-1.0) mg/dL Est Cr Clr Drug Dosing 50.73 mL/min Estimated GFR (MDRD) 56.9 ml/min Glucose 374 H (74-106) mg/dL POC Glucose 306 H (60-110) mg/dL Hemoglobin A1c (4.5-6.2) % Calcium 8.8 (8.5-10.1) mg/dL Phosphorus (2.6-4.7) mg/dL Magnesium (1.8-2.4) mg/dL Total Bilirubin (0.2-1.0) mg/dL AST (15-37) IU/L ALT (14-63) IU/L Alkaline Phosphatase (46-116) U/L Troponin I (0.000-0.056) ng/mL Total Protein (6.4-8.2) g/dL Albumin (3.4-5.0) g/dL Globulin (2.6-4.0) g/dL Albumin/Globulin Ratio (0.9-1.6) Lipase (73-393) U/L Urine Color Urine Appearance Urine pH (5.0-8.0) Ur Specific [place] (1.001-1.035) Urine Protein (NEGATIVE) mg/dL Urine Glucose (UA) (NEGATIVE) mg/dL Urine Ketones (NEGATIVE) mg/dL Urine Occult Blood (NEGATIVE) Urine Nitrite (NEGATIVE) Urine Bilirubin (NEGATIVE) Urine Urobilinogen (<2.0) EU/dL Ur Leukocyte Esterase (NEGATIVE) Urine RBC (0-2/HPF) Urine WBC (0-5/HPF) Ur Epithelial Cells (NONE-FEW) Urine Bacteria (NEGATIVE) Urine HCG, Qual (NEGATIVE) Ketones (NEG) COVID-19 ([facility]) (NEGATIVE) 04/15/20 04/15/20 04/15/20 Range/Units 17:14 18:07 19:05 WBC (4.0-11.0) K/uL RBC (4.30-5.90) M/uL Hgb (12.0-16.0) g/dL Hct (36.0-46.0) % MCV (80.0-98.0) fL MCH (27.0-32.0) pg MCHC (31.0-37.0) g/dL RDW Std Deviation (28.0-62.0) fl RDW Coeff of Harshil (11.0-15.0) % Plt Count (150-400) K/uL MPV (7.40-12.00) fL Neut % (Auto) (48.0-80.0) % Lymph % (Auto) (16.0-40.0) % [place] % (Auto) (0.0-15.0) % Eos % (Auto) (0.0-7.0) % Baso % (Auto) (0.0-1.5) % Neut # (Auto) (1.4-5.7) K/uL Lymph # (Auto) (0.6-2.4) K/uL [place] # (Auto) (0.0-0.8) K/uL Eos # (Auto) (0.0-0.7) K/uL Baso # (Auto) (0.0-0.1) K/uL Add Manual Diff Neutrophils % (Manual) (48.0-80.0) % Band Neutrophils % % Lymphocytes % (Manual) (16.0-40.0) % Monocytes % (Manual) (0.0-15.0) % Nucleated RBC % /100WBC Absolute Seg Neuts (1.4-5.7) Band Neutrophils # Lymphocytes # (Manual) (0.6-2.4) Monocytes # (Manual) (0.0-0.8) Nucleated RBCs # K/uL INR ABG pH (7.35-7.45) ABG pCO2 (35-45) mmHG ABG pO2 (75-100) mmHG ABG HCO3 (22-26) mEq/L ABG Total CO2 ABG Base Excess (-2.0-2.0) VBG pH (7.31-7.41) VBG pCO2 (35-45) mmHG VBG pO2 (30-40) mmHG VBG HCO3 (22-30) mEq/L VBG Total CO2 (41-51) mmol/L VBG Base Excess (-3.0-3.0) Lactate (0.20-2.00) mmol/L Sodium (136-145) mmol/L Potassium (3.5-5.1) mmol/L Chloride (98-107) mmol/L Carbon Dioxide (21.0-32.0) mmol/L BUN (7.0-18.0) mg/dL Creatinine (0.6-1.0) mg/dL Est Cr Clr Drug Dosing mL/min Estimated GFR (MDRD) ml/min Glucose (74-106) mg/dL POC Glucose 319 H 290 H 287 H (60-110) mg/dL Hemoglobin A1c (4.5-6.2) % Calcium (8.5-10.1) mg/dL Phosphorus (2.6-4.7) mg/dL Magnesium (1.8-2.4) mg/dL Total Bilirubin (0.2-1.0) mg/dL AST (15-37) IU/L ALT (14-63) IU/L Alkaline Phosphatase (46-116) U/L Troponin I (0.000-0.056) ng/mL Total Protein (6.4-8.2) g/dL Albumin (3.4-5.0) g/dL Globulin (2.6-4.0) g/dL Albumin/Globulin Ratio (0.9-1.6) Lipase (73-393) U/L Urine Color Urine Appearance Urine pH (5.0-8.0) Ur Specific [place] (1.001-1.035) Urine Protein (NEGATIVE) mg/dL Urine Glucose (UA) (NEGATIVE) mg/dL Urine Ketones (NEGATIVE) mg/dL Urine Occult Blood (NEGATIVE) Urine Nitrite (NEGATIVE) Urine Bilirubin (NEGATIVE) Urine Urobilinogen (<2.0) EU/dL Ur Leukocyte Esterase (NEGATIVE) Urine RBC (0-2/HPF) Urine WBC (0-5/HPF) Ur Epithelial Cells (NONE-FEW) Urine Bacteria (NEGATIVE) Urine HCG, Qual (NEGATIVE) Ketones (NEG) COVID-19 ([facility]) (NEGATIVE) 04/15/20 04/15/20 04/15/20 Range/Units 19:50 20:16 21:21 WBC (4.0-11.0) K/uL RBC (4.30-5.90) M/uL Hgb (12.0-16.0) g/dL Hct (36.0-46.0) % MCV (80.0-98.0) fL MCH (27.0-32.0) pg MCHC (31.0-37.0) g/dL RDW Std Deviation (28.0-62.0) fl RDW Coeff of Harshil (11.0-15.0) % Plt Count (150-400) K/uL MPV (7.40-12.00) fL Neut % (Auto) (48.0-80.0) % Lymph % (Auto) (16.0-40.0) % Hopkins % (Auto) (0.0-15.0) % Eos % (Auto) (0.0-7.0) % Baso % (Auto) (0.0-1.5) % Neut # (Auto) (1.4-5.7) K/uL Lymph # (Auto) (0.6-2.4) K/uL [place] # (Auto) (0.0-0.8) K/uL Eos # (Auto) (0.0-0.7) K/uL Baso # (Auto) (0.0-0.1) K/uL Add Manual Diff Neutrophils % (Manual) (48.0-80.0) % Band Neutrophils % % Lymphocytes % (Manual) (16.0-40.0) % Monocytes % (Manual) (0.0-15.0) % Nucleated RBC % /100WBC Absolute Seg Neuts (1.4-5.7) Band Neutrophils # Lymphocytes # (Manual) (0.6-2.4) Monocytes # (Manual) (0.0-0.8) Nucleated RBCs # K/uL INR ABG pH (7.35-7.45) ABG pCO2 (35-45) mmHG ABG pO2 (75-100) mmHG ABG HCO3 (22-26) mEq/L ABG Total CO2 ABG Base Excess (-2.0-2.0) VBG pH (7.31-7.41) VBG pCO2 (35-45) mmHG VBG pO2 (30-40) mmHG VBG HCO3 (22-30) mEq/L VBG Total CO2 (41-51) mmol/L VBG Base Excess (-3.0-3.0) Lactate (0.20-2.00) mmol/L Sodium 141 (136-145) mmol/L Potassium 4.4 (3.5-5.1) mmol/L Chloride 109 H (98-107) mmol/L Carbon Dioxide 13.4 L (21.0-32.0) mmol/L BUN 16 (7.0-18.0) mg/dL Creatinine 1.1 H (0.6-1.0) mg/dL Est Cr Clr Drug Dosing 46.11 mL/min Estimated GFR (MDRD) 51.0 ml/min Glucose 287 H (74-106) mg/dL POC Glucose 274 H 262 H (60-110) mg/dL Hemoglobin A1c (4.5-6.2) % Calcium 9.0 (8.5-10.1) mg/dL Phosphorus (2.6-4.7) mg/dL Magnesium (1.8-2.4) mg/dL Total Bilirubin (0.2-1.0) mg/dL AST (15-37) IU/L ALT (14-63) IU/L Alkaline Phosphatase (46-116) U/L Troponin I (0.000-0.056) ng/mL Total Protein (6.4-8.2) g/dL Albumin (3.4-5.0) g/dL Globulin (2.6-4.0) g/dL Albumin/Globulin Ratio (0.9-1.6) Lipase (73-393) U/L Urine Color Urine Appearance Urine pH (5.0-8.0) Ur Specific [place] (1.001-1.035) Urine Protein (NEGATIVE) mg/dL Urine Glucose (UA) (NEGATIVE) mg/dL Urine Ketones (NEGATIVE) mg/dL Urine Occult Blood (NEGATIVE) Urine Nitrite (NEGATIVE) Urine Bilirubin (NEGATIVE) Urine Urobilinogen (<2.0) EU/dL Ur Leukocyte Esterase (NEGATIVE) Urine RBC (0-2/HPF) Urine WBC (0-5/HPF) Ur Epithelial Cells (NONE-FEW) Urine Bacteria (NEGATIVE) Urine HCG, Qual (NEGATIVE) Ketones (NEG) COVID-19 ([facility]) (NEGATIVE) 08/29/20 08/29/20 08/29/20 Range/Units 22:10 23:05 23:30 WBC (4.0-11.0) K/uL RBC (4.30-5.90) M/uL Hgb (12.0-16.0) g/dL Hct (36.0-46.0) % MCV (80.0-98.0) fL MCH (27.0-32.0) pg MCHC (31.0-37.0) g/dL RDW Std Deviation (28.0-62.0) fl RDW Coeff of Harshil (11.0-15.0) % Plt Count (150-400) K/uL MPV (7.40-12.00) fL Neut % (Auto) (48.0-80.0) % Lymph % (Auto) (16.0-40.0) % [place] % (Auto) (0.0-15.0) % Eos % (Auto) (0.0-7.0) % Baso % (Auto) (0.0-1.5) % Neut # (Auto) (1.4-5.7) K/uL Lymph # (Auto) (0.6-2.4) K/uL [place] # (Auto) (0.0-0.8) K/uL Eos # (Auto) (0.0-0.7) K/uL Baso # (Auto) (0.0-0.1) K/uL Add Manual Diff Neutrophils % (Manual) (48.0-80.0) % Band Neutrophils % % Lymphocytes % (Manual) (16.0-40.0) % Monocytes % (Manual) (0.0-15.0) % Nucleated RBC % /100WBC Absolute Seg Neuts (1.4-5.7) Band Neutrophils # Lymphocytes # (Manual) (0.6-2.4) Monocytes # (Manual) (0.0-0.8) Nucleated RBCs # K/uL INR ABG pH (7.35-7.45) ABG pCO2 (35-45) mmHG ABG pO2 (75-100) mmHG ABG HCO3 (22-26) mEq/L ABG Total CO2 ABG Base Excess (-2.0-2.0) VBG pH (7.31-7.41) VBG pCO2 (35-45) mmHG VBG pO2 (30-40) mmHG VBG HCO3 (22-30) mEq/L VBG Total CO2 (41-51) mmol/L VBG Base Excess (-3.0-3.0) Lactate (0.20-2.00) mmol/L Sodium 142 (136-145) mmol/L Potassium 3.7 (3.5-5.1) mmol/L Chloride 110 H (98-107) mmol/L Carbon Dioxide 13.7 L (21.0-32.0) mmol/L BUN 17 (7.0-18.0) mg/dL Creatinine 1.0 (0.6-1.0) mg/dL Est Cr Clr Drug Dosing 50.73 mL/min Estimated GFR (MDRD) 56.9 ml/min Glucose 241 H (74-106) mg/dL POC Glucose 239 H 235 H (60-110) mg/dL Hemoglobin A1c (4.5-6.2) % Calcium 8.4 L (8.5-10.1) mg/dL Phosphorus (2.6-4.7) mg/dL Magnesium (1.8-2.4) mg/dL Total Bilirubin (0.2-1.0) mg/dL AST (15-37) IU/L ALT (14-63) IU/L Alkaline Phosphatase (46-116) U/L Troponin I (0.000-0.056) ng/mL Total Protein (6.4-8.2) g/dL Albumin (3.4-5.0) g/dL Globulin (2.6-4.0) g/dL Albumin/Globulin Ratio (0.9-1.6) Lipase (73-393) U/L Urine Color Urine Appearance Urine pH (5.0-8.0) Ur Specific [place] (1.001-1.035) Urine Protein (NEGATIVE) mg/dL Urine Glucose (UA) (NEGATIVE) mg/dL Urine Ketones (NEGATIVE) mg/dL Urine Occult Blood (NEGATIVE) Urine Nitrite (NEGATIVE) Urine Bilirubin (NEGATIVE) Urine Urobilinogen (<2.0) EU/dL Ur Leukocyte Esterase (NEGATIVE) Urine RBC (0-2/HPF) Urine WBC (0-5/HPF) Ur Epithelial Cells (NONE-FEW) Urine Bacteria (NEGATIVE) Urine HCG, Qual (NEGATIVE) Ketones (NEG) COVID-19 ([facility]) (NEGATIVE) 04/16/20 04/16/20 04/16/20 Range/Units 00:03 00:56 02:12 WBC (4.0-11.0) K/uL RBC (4.30-5.90) M/uL Hgb (12.0-16.0) g/dL Hct (36.0-46.0) % MCV (80.0-98.0) fL MCH (27.0-32.0) pg MCHC (31.0-37.0) g/dL RDW Std Deviation (28.0-62.0) fl RDW Coeff of Harshil (11.0-15.0) % Plt Count (150-400) K/uL MPV (7.40-12.00) fL Neut % (Auto) (48.0-80.0) % Lymph % (Auto) (16.0-40.0) % [place] % (Auto) (0.0-15.0) % Eos % (Auto) (0.0-7.0) % Baso % (Auto) (0.0-1.5) % Neut # (Auto) (1.4-5.7) K/uL Lymph # (Auto) (0.6-2.4) K/uL [place] # (Auto) (0.0-0.8) K/uL Eos # (Auto) (0.0-0.7) K/uL Baso # (Auto) (0.0-0.1) K/uL Add Manual Diff Neutrophils % (Manual) (48.0-80.0) % Band Neutrophils % % Lymphocytes % (Manual) (16.0-40.0) % Monocytes % (Manual) (0.0-15.0) % Nucleated RBC % /100WBC Absolute Seg Neuts (1.4-5.7) Band Neutrophils # Lymphocytes # (Manual) (0.6-2.4) Monocytes # (Manual) (0.0-0.8) Nucleated RBCs # K/uL INR ABG pH (7.35-7.45) ABG pCO2 (35-45) mmHG ABG pO2 (75-100) mmHG ABG HCO3 (22-26) mEq/L ABG Total CO2 ABG Base Excess (-2.0-2.0) VBG pH (7.31-7.41) VBG pCO2 (35-45) mmHG VBG pO2 (30-40) mmHG VBG HCO3 (22-30) mEq/L VBG Total CO2 (41-51) mmol/L VBG Base Excess (-3.0-3.0) Lactate (0.20-2.00) mmol/L Sodium (136-145) mmol/L Potassium (3.5-5.1) mmol/L Chloride (98-107) mmol/L Carbon Dioxide (21.0-32.0) mmol/L BUN (7.0-18.0) mg/dL Creatinine (0.6-1.0) mg/dL Est Cr Clr Drug Dosing mL/min Estimated GFR (MDRD) ml/min Glucose (74-106) mg/dL POC Glucose 227 H 223 H 223 H (60-110) mg/dL Hemoglobin A1c (4.5-6.2) % Calcium (8.5-10.1) mg/dL Phosphorus (2.6-4.7) mg/dL Magnesium (1.8-2.4) mg/dL Total Bilirubin (0.2-1.0) mg/dL AST (15-37) IU/L ALT (14-63) IU/L Alkaline Phosphatase (46-116) U/L Troponin I (0.000-0.056) ng/mL Total Protein (6.4-8.2) g/dL Albumin (3.4-5.0) g/dL Globulin (2.6-4.0) g/dL Albumin/Globulin Ratio (0.9-1.6) Lipase (73-393) U/L Urine Color Urine Appearance Urine pH (5.0-8.0) Ur Specific [place] (1.001-1.035) Urine Protein (NEGATIVE) mg/dL Urine Glucose (UA) (NEGATIVE) mg/dL Urine Ketones (NEGATIVE) mg/dL Urine Occult Blood (NEGATIVE) Urine Nitrite (NEGATIVE) Urine Bilirubin (NEGATIVE) Urine Urobilinogen (<2.0) EU/dL Ur Leukocyte Esterase (NEGATIVE) Urine RBC (0-2/HPF) Urine WBC (0-5/HPF) Ur Epithelial Cells (NONE-FEW) Urine Bacteria (NEGATIVE) Urine HCG, Qual (NEGATIVE) Ketones (NEG) COVID-19 ([facility]ULLY) (NEGATIVE) 04/16/20 04/16/20 04/16/20 Range/Units 03:18 03:48 03:48 WBC 13.06 H (4.0-11.0) K/uL RBC 3.74 L (4.30-5.90) M/uL Hgb 10.7 L (12.0-16.0) g/dL Hct 32.1 L (36.0-46.0) % MCV 85.8 (80.0-98.0) fL MCH 28.6 (27.0-32.0) pg MCHC 33.3 (31.0-37.0) g/dL RDW Std Deviation 41.0 (28.0-62.0) fl RDW Coeff of Harshil 13 (11.0-15.0) % Plt Count 417 H (150-400) K/uL MPV 9.30 (7.40-12.00) fL Neut % (Auto) 80.1 H (48.0-80.0) % Lymph % (Auto) 12.3 L (16.0-40.0) % Hopkins % (Auto) 7.3 (0.0-15.0) % Eos % (Auto) 0.2 (0.0-7.0) % Baso % (Auto) 0.1 (0.0-1.5) % Neut # (Auto) 10.5 H (1.4-5.7) K/uL Lymph # (Auto) 1.6 (0.6-2.4) K/uL Hopkins # (Auto) 1.0 H (0.0-0.8) K/uL Eos # (Auto) 0.0 (0.0-0.7) K/uL Baso # (Auto) 0.0 (0.0-0.1) K/uL Add Manual Diff Neutrophils % (Manual) (48.0-80.0) % Band Neutrophils % % Lymphocytes % (Manual) (16.0-40.0) % Monocytes % (Manual) (0.0-15.0) % Nucleated RBC % 0.0 /100WBC Absolute Seg Neuts (1.4-5.7) Band Neutrophils # Lymphocytes # (Manual) (0.6-2.4) Monocytes # (Manual) (0.0-0.8) Nucleated RBCs # 0 K/uL INR 1.10 ABG pH (7.35-7.45) ABG pCO2 (35-45) mmHG ABG pO2 (75-100) mmHG ABG HCO3 (22-26) mEq/L ABG Total CO2 ABG Base Excess (-2.0-2.0) VBG pH (7.31-7.41) VBG pCO2 (35-45) mmHG VBG pO2 (30-40) mmHG VBG HCO3 (22-30) mEq/L VBG Total CO2 (41-51) mmol/L VBG Base Excess (-3.0-3.0) Lactate (0.20-2.00) mmol/L Sodium (136-145) mmol/L Potassium (3.5-5.1) mmol/L Chloride (98-107) mmol/L Carbon Dioxide (21.0-32.0) mmol/L BUN (7.0-18.0) mg/dL Creatinine (0.6-1.0) mg/dL Est Cr Clr Drug Dosing mL/min Estimated GFR (MDRD) ml/min Glucose (74-106) mg/dL POC Glucose 265 H (60-110) mg/dL Hemoglobin A1c (4.5-6.2) % Calcium (8.5-10.1) mg/dL Phosphorus (2.6-4.7) mg/dL Magnesium (1.8-2.4) mg/dL Total Bilirubin (0.2-1.0) mg/dL AST (15-37) IU/L ALT (14-63) IU/L Alkaline Phosphatase (46-116) U/L Troponin I (0.000-0.056) ng/mL Total Protein (6.4-8.2) g/dL Albumin (3.4-5.0) g/dL Globulin (2.6-4.0) g/dL Albumin/Globulin Ratio (0.9-1.6) Lipase (73-393) U/L Urine Color Urine Appearance Urine pH (5.0-8.0) Ur Specific [place] (1.001-1.035) Urine Protein (NEGATIVE) mg/dL Urine Glucose (UA) (NEGATIVE) mg/dL Urine Ketones (NEGATIVE) mg/dL Urine Occult Blood (NEGATIVE) Urine Nitrite (NEGATIVE) Urine Bilirubin (NEGATIVE) Urine Urobilinogen (<2.0) EU/dL Ur Leukocyte Esterase (NEGATIVE) Urine RBC (0-2/HPF) Urine WBC (0-5/HPF) Ur Epithelial Cells (NONE-FEW) Urine Bacteria (NEGATIVE) Urine HCG, Qual (NEGATIVE) Ketones (NEG) COVID-19 ([facility]Y) (NEGATIVE) 04/16/20 04/16/20 04/16/20 Range/Units 03:48 03:48 05:13 WBC (4.0-11.0) K/uL RBC (4.30-5.90) M/uL Hgb (12.0-16.0) g/dL Hct (36.0-46.0) % MCV (80.0-98.0) fL MCH (27.0-32.0) pg MCHC (31.0-37.0) g/dL RDW Std Deviation (28.0-62.0) fl RDW Coeff of Harshil (11.0-15.0) % Plt Count (150-400) K/uL MPV (7.40-12.00) fL Neut % (Auto) (48.0-80.0) % Lymph % (Auto) (16.0-40.0) % Hopkins % (Auto) (0.0-15.0) % Eos % (Auto) (0.0-7.0) % Baso % (Auto) (0.0-1.5) % Neut # (Auto) (1.4-5.7) K/uL Lymph # (Auto) (0.6-2.4) K/uL Hopkins # (Auto) (0.0-0.8) K/uL Eos # (Auto) (0.0-0.7) K/uL Baso # (Auto) (0.0-0.1) K/uL Add Manual Diff Neutrophils % (Manual) (48.0-80.0) % Band Neutrophils % % Lymphocytes % (Manual) (16.0-40.0) % Monocytes % (Manual) (0.0-15.0) % Nucleated RBC % /100WBC Absolute Seg Neuts (1.4-5.7) Band Neutrophils # Lymphocytes # (Manual) (0.6-2.4) Monocytes # (Manual) (0.0-0.8) Nucleated RBCs # K/uL INR ABG pH (7.35-7.45) ABG pCO2 (35-45) mmHG ABG pO2 (75-100) mmHG ABG HCO3 (22-26) mEq/L ABG Total CO2 ABG Base Excess (-2.0-2.0) VBG pH (7.31-7.41) VBG pCO2 (35-45) mmHG VBG pO2 (30-40) mmHG VBG HCO3 (22-30) mEq/L VBG Total CO2 (41-51) mmol/L VBG Base Excess (-3.0-3.0) Lactate (0.20-2.00) mmol/L Sodium 141 (136-145) mmol/L Potassium 3.3 L (3.5-5.1) mmol/L Chloride 110 H (98-107) mmol/L Carbon Dioxide 15.9 L (21.0-32.0) mmol/L BUN 15 (7.0-18.0) mg/dL Creatinine 0.9 (0.6-1.0) mg/dL Est Cr Clr Drug Dosing 56.36 mL/min Estimated GFR (MDRD) > 60.0 ml/min Glucose 299 H (74-106) mg/dL POC Glucose 279 H 307 H (60-110) mg/dL Hemoglobin A1c (4.5-6.2) % Calcium 8.3 L (8.5-10.1) mg/dL Phosphorus (2.6-4.7) mg/dL Magnesium (1.8-2.4) mg/dL Total Bilirubin 0.2 (0.2-1.0) mg/dL AST 8 L (15-37) IU/L ALT 9 L (14-63) IU/L Alkaline Phosphatase 109 (46-116) U/L Troponin I (0.000-0.056) ng/mL Total Protein 6.1 L (6.4-8.2) g/dL Albumin 2.3 L (3.4-5.0) g/dL Globulin 3.8 (2.6-4.0) g/dL Albumin/Globulin Ratio 0.6 L (0.9-1.6) Lipase (73-393) U/L Urine Color Urine Appearance Urine pH (5.0-8.0) Ur Specific [place] (1.001-1.035) Urine Protein (NEGATIVE) mg/dL Urine Glucose (UA) (NEGATIVE) mg/dL Urine Ketones (NEGATIVE) mg/dL Urine Occult Blood (NEGATIVE) Urine Nitrite (NEGATIVE) Urine Bilirubin (NEGATIVE) Urine Urobilinogen (<2.0) EU/dL Ur Leukocyte Esterase (NEGATIVE) Urine RBC (0-2/HPF) Urine WBC (0-5/HPF) Ur Epithelial Cells (NONE-FEW) Urine Bacteria (NEGATIVE) Urine HCG, Qual (NEGATIVE) Ketones (NEG) COVID-19 ([facility]) (NEGATIVE) 04/16/20 04/16/20 04/16/20 Range/Units 06:25 07:05 07:15 WBC (4.0-11.0) K/uL RBC (4.30-5.90) M/uL Hgb (12.0-16.0) g/dL Hct (36.0-46.0) % MCV (80.0-98.0) fL MCH (27.0-32.0) pg MCHC (31.0-37.0) g/dL RDW Std Deviation (28.0-62.0) fl RDW Coeff of Harshil (11.0-15.0) % Plt Count (150-400) K/uL MPV (7.40-12.00) fL Neut % (Auto) (48.0-80.0) % Lymph % (Auto) (16.0-40.0) % [place] % (Auto) (0.0-15.0) % Eos % (Auto) (0.0-7.0) % Baso % (Auto) (0.0-1.5) % Neut # (Auto) (1.4-5.7) K/uL Lymph # (Auto) (0.6-2.4) K/uL [place] # (Auto) (0.0-0.8) K/uL Eos # (Auto) (0.0-0.7) K/uL Baso # (Auto) (0.0-0.1) K/uL Add Manual Diff Neutrophils % (Manual) (48.0-80.0) % Band Neutrophils % % Lymphocytes % (Manual) (16.0-40.0) % Monocytes % (Manual) (0.0-15.0) % Nucleated RBC % /100WBC Absolute Seg Neuts (1.4-5.7) Band Neutrophils # Lymphocytes # (Manual) (0.6-2.4) Monocytes # (Manual) (0.0-0.8) Nucleated RBCs # K/uL INR ABG pH (7.35-7.45) ABG pCO2 (35-45) mmHG ABG pO2 (75-100) mmHG ABG HCO3 (22-26) mEq/L ABG Total CO2 ABG Base Excess (-2.0-2.0) VBG pH (7.31-7.41) VBG pCO2 (35-45) mmHG VBG pO2 (30-40) mmHG VBG HCO3 (22-30) mEq/L VBG Total CO2 (41-51) mmol/L VBG Base Excess (-3.0-3.0) Lactate (0.20-2.00) mmol/L Sodium 140 (136-145) mmol/L Potassium 3.8 (3.5-5.1) mmol/L Chloride 110 H (98-107) mmol/L Carbon Dioxide 16.7 L (21.0-32.0) mmol/L BUN 15 (7.0-18.0) mg/dL Creatinine 0.9 (0.6-1.0) mg/dL Est Cr Clr Drug Dosing 56.36 mL/min Estimated GFR (MDRD) > 60.0 ml/min Glucose 338 H (74-106) mg/dL POC Glucose 300 H 343 H (60-110) mg/dL Hemoglobin A1c (4.5-6.2) % Calcium 8.7 (8.5-10.1) mg/dL Phosphorus (2.6-4.7) mg/dL Magnesium (1.8-2.4) mg/dL Total Bilirubin (0.2-1.0) mg/dL AST (15-37) IU/L ALT (14-63) IU/L Alkaline Phosphatase (46-116) U/L Troponin I (0.000-0.056) ng/mL Total Protein (6.4-8.2) g/dL Albumin (3.4-5.0) g/dL Globulin (2.6-4.0) g/dL Albumin/Globulin Ratio (0.9-1.6) Lipase (73-393) U/L Urine Color Urine Appearance Urine pH (5.0-8.0) Ur Specific [place] (1.001-1.035) Urine Protein (NEGATIVE) mg/dL Urine Glucose (UA) (NEGATIVE) mg/dL Urine Ketones (NEGATIVE) mg/dL Urine Occult Blood (NEGATIVE) Urine Nitrite (NEGATIVE) Urine Bilirubin (NEGATIVE) Urine Urobilinogen (<2.0) EU/dL Ur Leukocyte Esterase (NEGATIVE) Urine RBC (0-2/HPF) Urine WBC (0-5/HPF) Ur Epithelial Cells (NONE-FEW) Urine Bacteria (NEGATIVE) Urine HCG, Qual (NEGATIVE) Ketones (NEG) COVID-19 ([facility]) (NEGATIVE) 04/16/20 04/16/20 04/16/20 Range/Units 07:15 07:15 07:15 WBC (4.0-11.0) K/uL RBC (4.30-5.90) M/uL Hgb (12.0-16.0) g/dL Hct (36.0-46.0) % MCV (80.0-98.0) fL MCH (27.0-32.0) pg MCHC (31.0-37.0) g/dL RDW Std Deviation (28.0-62.0) fl RDW Coeff of Harshil (11.0-15.0) % Plt Count (150-400) K/uL MPV (7.40-12.00) fL Neut % (Auto) (48.0-80.0) % Lymph % (Auto) (16.0-40.0) % [place] % (Auto) (0.0-15.0) % Eos % (Auto) (0.0-7.0) % Baso % (Auto) (0.0-1.5) % Neut # (Auto) (1.4-5.7) K/uL Lymph # (Auto) (0.6-2.4) K/uL [place] # (Auto) (0.0-0.8) K/uL Eos # (Auto) (0.0-0.7) K/uL Baso # (Auto) (0.0-0.1) K/uL Add Manual Diff Neutrophils % (Manual) (48.0-80.0) % Band Neutrophils % % Lymphocytes % (Manual) (16.0-40.0) % Monocytes % (Manual) (0.0-15.0) % Nucleated RBC % /100WBC Absolute Seg Neuts (1.4-5.7) Band Neutrophils # Lymphocytes # (Manual) (0.6-2.4) Monocytes # (Manual) (0.0-0.8) Nucleated RBCs # K/uL INR ABG pH (7.35-7.45) ABG pCO2 (35-45) mmHG ABG pO2 (75-100) mmHG ABG HCO3 (22-26) mEq/L ABG Total CO2 ABG Base Excess (-2.0-2.0) VBG pH (7.31-7.41) VBG pCO2 (35-45) mmHG VBG pO2 (30-40) mmHG VBG HCO3 (22-30) mEq/L VBG Total CO2 (41-51) mmol/L VBG Base Excess (-3.0-3.0) Lactate (0.20-2.00) mmol/L Sodium (136-145) mmol/L Potassium (3.5-5.1) mmol/L Chloride (98-107) mmol/L Carbon Dioxide (21.0-32.0) mmol/L BUN (7.0-18.0) mg/dL Creatinine (0.6-1.0) mg/dL Est Cr Clr Drug Dosing mL/min Estimated GFR (MDRD) ml/min Glucose (74-106) mg/dL POC Glucose (60-110) mg/dL Hemoglobin A1c (4.5-6.2) % Calcium (8.5-10.1) mg/dL Phosphorus 1.3 L (2.6-4.7) mg/dL Magnesium 1.8 (1.8-2.4) mg/dL Total Bilirubin (0.2-1.0) mg/dL AST (15-37) IU/L ALT (14-63) IU/L Alkaline Phosphatase (46-116) U/L Troponin I (0.000-0.056) ng/mL Total Protein (6.4-8.2) g/dL Albumin (3.4-5.0) g/dL Globulin (2.6-4.0) g/dL Albumin/Globulin Ratio (0.9-1.6) Lipase (73-393) U/L Urine Color Urine Appearance Urine pH (5.0-8.0) Ur Specific [place] (1.001-1.035) Urine Protein (NEGATIVE) mg/dL Urine Glucose (UA) (NEGATIVE) mg/dL Urine Ketones (NEGATIVE) mg/dL Urine Occult Blood (NEGATIVE) Urine Nitrite (NEGATIVE) Urine Bilirubin (NEGATIVE) Urine Urobilinogen (<2.0) EU/dL Ur Leukocyte Esterase (NEGATIVE) Urine RBC (0-2/HPF) Urine WBC (0-5/HPF) Ur Epithelial Cells (NONE-FEW) Urine Bacteria (NEGATIVE) Urine HCG, Qual (NEGATIVE) Ketones SMALL H (NEG) COVID-19 ([facility]) (NEGATIVE) 04/16/20 04/16/20 Range/Units 08:07 08:35 WBC (4.0-11.0) K/uL RBC (4.30-5.90) M/uL Hgb (12.0-16.0) g/dL Hct (36.0-46.0) % MCV (80.0-98.0) fL MCH (27.0-32.0) pg MCHC (31.0-37.0) g/dL RDW Std Deviation (28.0-62.0) fl RDW Coeff of Harshil (11.0-15.0) % Plt Count (150-400) K/uL MPV (7.40-12.00) fL Neut % (Auto) (48.0-80.0) % Lymph % (Auto) (16.0-40.0) % Hopkins % (Auto) (0.0-15.0) % Eos % (Auto) (0.0-7.0) % Baso % (Auto) (0.0-1.5) % Neut # (Auto) (1.4-5.7) K/uL Lymph # (Auto) (0.6-2.4) K/uL Hopkins # (Auto) (0.0-0.8) K/uL Eos # (Auto) (0.0-0.7) K/uL Baso # (Auto) (0.0-0.1) K/uL Add Manual Diff Neutrophils % (Manual) (48.0-80.0) % Band Neutrophils % % Lymphocytes % (Manual) (16.0-40.0) % Monocytes % (Manual) (0.0-15.0) % Nucleated RBC % /100WBC Absolute Seg Neuts (1.4-5.7) Band Neutrophils # Lymphocytes # (Manual) (0.6-2.4) Monocytes # (Manual) (0.0-0.8) Nucleated RBCs # K/uL INR ABG pH 7.329 L (7.35-7.45) ABG pCO2 29 L (35-45) mmHG ABG pO2 76 (75-100) mmHG ABG HCO3 15 L (22-26) mEq/L ABG Total CO2 13.9 ABG Base Excess -9.6 L (-2.0-2.0) VBG pH (7.31-7.41) VBG pCO2 (35-45) mmHG VBG pO2 (30-40) mmHG VBG HCO3 (22-30) mEq/L VBG Total CO2 (41-51) mmol/L VBG Base Excess (-3.0-3.0) Lactate (0.20-2.00) mmol/L Sodium (136-145) mmol/L Potassium (3.5-5.1) mmol/L Chloride (98-107) mmol/L Carbon Dioxide (21.0-32.0) mmol/L BUN (7.0-18.0) mg/dL Creatinine (0.6-1.0) mg/dL Est Cr Clr Drug Dosing mL/min Estimated GFR (MDRD) ml/min Glucose (74-106) mg/dL POC Glucose 295 H (60-110) mg/dL Hemoglobin A1c (4.5-6.2) % Calcium (8.5-10.1) mg/dL Phosphorus (2.6-4.7) mg/dL Magnesium (1.8-2.4) mg/dL Total Bilirubin (0.2-1.0) mg/dL AST (15-37) IU/L ALT (14-63) IU/L Alkaline Phosphatase (46-116) U/L Troponin I (0.000-0.056) ng/mL Total Protein (6.4-8.2) g/dL Albumin (3.4-5.0) g/dL Globulin (2.6-4.0) g/dL Albumin/Globulin Ratio (0.9-1.6) Lipase (73-393) U/L Urine Color Urine Appearance Urine pH (5.0-8.0) Ur Specific [place] (1.001-1.035) Urine Protein (NEGATIVE) mg/dL Urine Glucose (UA) (NEGATIVE) mg/dL Urine Ketones (NEGATIVE) mg/dL Urine Occult Blood (NEGATIVE) Urine Nitrite (NEGATIVE) Urine Bilirubin (NEGATIVE) Urine Urobilinogen (<2.0) EU/dL Ur Leukocyte Esterase (NEGATIVE) Urine RBC (0-2/HPF) Urine WBC (0-5/HPF) Ur Epithelial Cells (NONE-FEW) Urine Bacteria (NEGATIVE) Urine HCG, Qual (NEGATIVE) Ketones (NEG) COVID-19 ([facility]) (NEGATIVE) Med Orders - Current: Current Medications Lactated Ringer's (Ringers, Lactated) 1,000 mls @ 999 mls/hr IV ASDIRECTED ALISA Last Admin: 04/15/20 12:52 Dose: 999 mls/hr Documented by: Insulin Human Regular 100 unit (/ Sodium Chloride) 100 mls @ 6 mls/hr IV TITRATE ALISA; Protocol Last Titration: 04/16/20 09:08 Dose: 4 unit/hr, 4 mls/hr Documented by: Pantoprazole Sodium 40 mg/ (Sodium Chloride) 10 mls @ 300 mls/hr IV DAILY ALISA Last Admin: 04/16/20 09:10 Dose: 300 mls/hr Documented by: Ceftriaxone Sodium 1 gm/ (Sodium Chloride) 50 mls @ 100 mls/hr IV Q24H ALISA Vancomycin HCl 1.25 gm/ Sodium (Chloride) 250 mls @ 166.667 mls/hr IV Q12H ALISA Last Admin: 04/16/20 00:34 Dose: 166.667 mls/hr Documented by: Dextrose/Sodium Chloride (Dextrose 5%-1/2 Ns) 1,000 mls @ 200 mls/hr IV ASDIRECTED ALISA Last Admin: 04/16/20 06:21 Dose: 200 mls/hr Documented by: Lactated Ringer's (Ringers, Lactated) 1,000 mls @ 500 mls/hr IV ASDIRECTED [facility] Last Admin: 04/16/20 08:58 Dose: 500 mls/hr Documented by: Potassium Phosphate 15 mmole/ (Sodium Chloride) 255 mls @ 63.75 mls/hr IV NOW ONE Stop: 04/16/20 13:29 Last Admin: 04/16/20 09:21 Dose: 63.75 mls/hr Documented by: Morphine Sulfate (Morphine) 1 mg IVPUSH Q3H PRN PRN Reason: Pain Last Admin: 04/16/20 09:41 Dose: 1 mg Documented by: Ondansetron HCl (Zofran) 8 mg IVPUSH Q6H PRN PRN Reason: Nausea Last Admin: 04/16/20 02:35 Dose: 8 mg Documented by: Vancomycin HCl (Pharmacy To Dose - Vancomycin) [facility] Cefazolin Sodium (Ancef) Confirm Administered Dose 2 gm .ROUTE .STK-MED ONE Stop: 04/16/20 08:59 Sodium Chloride (Normal Saline) 1,000 mls @ 999 mls/hr IV BOLUS ONE Stop: 04/15/20 11:23 Last Admin: 04/15/20 10:37 Dose: 999 mls/hr Documented by: Ceftriaxone Sodium/Dextrose 2 (gm/ Premix) 50 mls @ 100 mls/hr IV ONETIME ONE Stop: 04/15/20 11:32 Last Admin: 04/15/20 11:14 Dose: 100 mls/hr Documented by: Lactated Ringer's (Ringers, Lactated) 1,000 mls @ 999 mls/hr IV ASDIRECTED [facility] Last Admin: 04/15/20 15:15 Dose: 200 mls/hr Documented by: Vancomycin HCl 1.5 gm/ Premix 300 mls @ 150 mls/hr IV ONETIME ONE Stop: 04/15/20 14:29 Last Admin: 04/15/20 12:52 Dose: 150 mls/hr Documented by: Sodium Chloride (Normal Saline) 1,000 mls @ 200 mls/hr IV CONTINUOUS ONE Stop: 04/15/20 20:05 Last Admin: 04/15/20 20:14 Dose: 200 mls/hr Documented by: Potassium Chloride 40 meq/ (Premix) 100 mls @ 25 mls/hr IV ONETIME ONE Stop: 04/16/20 09:09 Last Admin: 04/16/20 05:20 Dose: 25 mls/hr Documented by: Insulin Human Regular (Novolin R) Confirm Administered Dose 1,000 unit .ROUTE .STK-MED ONE Stop: 04/15/20 12:47 Last Admin: 04/15/20 12:52 Dose: Not Given Documented by: Iopamidol (Isovue Multipack-370 (76%)) 80 ml IVPUSH ONETIME ONE Stop: 04/15/20 13:08 Last Admin: 04/15/20 13:08 Dose: 80 ml Documented by: Ondansetron HCl (Zofran) 4 mg IVPUSH ONETIME ONE Stop: 04/15/20 10:24 Last Admin: 04/15/20 10:37 Dose: 4 mg Documented by: - Exam General: Alert, Oriented HEENT: Pupils Equal, EOMI Neck: Trachea Midline Lungs: Clear to Auscultation, Normal Respiratory Effort Cardiovascular: Regular Rate, Regular Rhythm GI/Abdominal Exam: Soft, Non-Tender, No Distention Extremities: No Pedal Edema Sepsis Event Note - Evaluation Sepsis Screening Result: Sepsis Risk - Focused Exam Vital Signs: Vital Signs Temp Resp BP Pulse Ox 04/16/20 07:00 16 132/67 96 04/16/20 06:00 15 134/71 96 04/16/20 05:00 12 117/58 L 96 04/16/20 04:00 98.2 F 14 128/66 95 04/16/20 03:00 19 126/61 96 04/16/20 02:00 18 116/58 L 95 04/16/20 01:00 17 116/53 L 96 04/16/20 00:00 97.6 F 16 111/57 L 96 04/15/20 23:00 18 111/52 L 98 04/15/20 22:00 18 118/55 L 98 - Problem List Review Problem List Initiated/Reviewed/Updated: Yes - Plan Plan:: Assessment/Plan: 1. Labial Abscess formation w. cellulitis- Patient to resume vancomycin and ceftriaxone antibiotics. Patient was seen this morning by Anesthesia. Dr Nieves recommends that patient be reevaluated later this afternoon and I&D possibly tomorrow due to uncontrolled DKA (serum ketones, increased anion gap, acidosis on ABG). Per Dr Nieves once the patient acidosis is corrected, ketones cleared and switched form iv insulin to SQ insulin, patient will be stable for surgery. 2. DKA- Patient has positive serum ketones with increased Anion Gap and respiratory acidosis. Patient to receive another 2 L LR. Will continue to check BMP, glucose and replace electrolytes as needed. Patient is currently on D5 and IV insulin. Will switch to Sub-Q insulin once blood sugar reaches 250 X 2 hours. Will d/c D2 once anion gap is less than 12. Phosphorous repleted with K Phosphate 15mmol per E-ICU. Will recheck phosphorus and replete if necessary. Patient scheduled for surgery tomorrow pending AM labs
[2020-04-16] MEDS ORDERED: Dextrose 5%-0.45% NaCl 1,000 ML IV SCH (11:45)
[2020-04-16] MEDS ORDERED: cefTRIAXone 1 GM in Sodium Chloride 0.9% 50 ML IV SCH (12:00)
[2020-04-16 12:25] LABS: BLOOD UREA NITROGEN,BUN 12 mg/dL (7.0-18.0); CARBON DIOXIDE,CO2 17.2 mmol/L (21.0-32.0); CHLORIDE,CL 109 mmol/L (98-107); GLUCOSE RANDOM 337 mg/dL (74-106); POTASSIUM,K 3.9 mmol/L (3.5-5.1); SODIUM,NA 138 mmol/L (136-145)
[2020-04-16] MEDS: cefTRIAXone 1 GM in Premix Bag 1 BAG IV SCH (13:00)
[2020-04-16 16:43] LABS: BLOOD UREA NITROGEN,BUN 10 mg/dL (7.0-18.0); CARBON DIOXIDE,CO2 18.7 mmol/L (21.0-32.0); CHLORIDE,CL 108 mmol/L (98-107); GLUCOSE RANDOM 325 mg/dL (74-106); POTASSIUM,K 3.6 mmol/L (3.5-5.1); SODIUM,NA 137 mmol/L (136-145)
[2020-04-16] MEDS: Insulin Glargine,Human Rec. Analog 100 Units/ML 3 ML Pen SUBCUT SCH (17:20)
[2020-04-16] MEDS ORDERED: Phosphorus #1 250 MG Tab PO ONE (18:59)
[2020-04-16] MEDS ORDERED: Lactated Ringers 1,000 ML IV SCH (19:15)
[2020-04-16 20:24] LABS: BLOOD UREA NITROGEN,BUN 9 mg/dL (7.0-18.0); CARBON DIOXIDE,CO2 17.8 mmol/L (21.0-32.0); CHLORIDE,CL 108 mmol/L (98-107); GLUCOSE RANDOM 290 mg/dL (74-106); POTASSIUM,K 3.5 mmol/L (3.5-5.1); SODIUM,NA 138 mmol/L (136-145)
[2020-04-16] MEDS: Insulin Aspart 100 Units/ML 3 ML Pen SUBCUT SCH (21:00)
--- NOTE | 2020-04-16 22:13 | PN ---
[facility] Physician - Brief Progress [id number]/30/2020 21:42[facility] luciaKainFARRAH - KEEGANN (MUNIRA) - SORAIDA FERREIRADate of Service 04/16/2020 21:42HPI/Event s of Note Overnight Events.Called for N/V in patient admitted for DKA. Has Zofran ordered 8 mg IV q6h .Plan: changed to 4 mg IV q4h prn.Interventions Minor-Other: N/V
[2020-04-17] MEDS ORDERED: Ondansetron 4 MG/2 ML SDV IVPUSH PRN
[2020-04-17] MEDS: Lactated Ringers 1,000 ML IV SCH ×2 (00:54→17:51)
[2020-04-17] MEDS: Phosphorus #1 250 MG Tab PO SCH ×2 (00:54→05:01)
[2020-04-17 06:22] LABS: BLOOD UREA NITROGEN,BUN 8 mg/dL (7.0-18.0); CARBON DIOXIDE,CO2 19.3 mmol/L (21.0-32.0); CHLORIDE,CL 108 mmol/L (98-107); GLUCOSE RANDOM 277 mg/dL (74-106); POTASSIUM,K 3.3 mmol/L (3.5-5.1); SODIUM,NA 139 mmol/L (136-145)
[2020-04-17] MEDS ORDERED: Magnesium Sulfate/Water 2 GM in Premix Bag 1 BAG IV ONE (07:26)
[2020-04-17] MEDS ORDERED: Potassium Phos,M-Basic-D-Basic 3 MMOL/ML VIAL IV ONE (07:26)
[2020-04-17] MEDS ORDERED: Phosphorus #1 250 MG Tab PO ONE (07:31)
[2020-04-17] MEDS: Insulin Aspart 100 Units/ML 3 ML Pen SUBCUT SCH ×4 (07:44→21:06)
[2020-04-17] MEDS: Pantoprazole 40 MG in Sodium Chloride 0.9% 10 ML IV SCH (08:02)
[2020-04-17] MEDS ORDERED: SODIUM CHLORIDE IV ONE (08:10)
[2020-04-17] MEDS ORDERED: POTASSIUM PHOSPHATES IV ONE (08:10)
--- NOTE | 2020-04-17 08:20 | PCM.PN ---
- General Info Date of Service: 04/17/20 Subjective Update: Bedside: endorsing some mild nausea; still requesting breakfast; no acute pain endorsed Functional Status: Reports: Pain Controlled - Review of Systems General: Reports: Fatigue HEENT: Reports: No Symptoms Pulmonary: Reports: No Symptoms Cardiovascular: Reports: No Symptoms Gastrointestinal: Reports: Nausea, Vomiting (prior to bedside exam; now resolved w. Zofran) Genitourinary: Reports: No Symptoms Musculoskeletal: Reports: No Symptoms Skin: Reports: No Symptoms Neurological: Reports: No Symptoms Psychiatric: Reports: No Symptoms - Patient Data Vitals - Most Recent: Last Vital Signs Temp 98.9 F 04/17/20 05:00 Pulse 91 04/15/20 18:00 Resp 19 04/17/20 07:00 BP 161/77 H 04/17/20 07:00 Pulse Ox 96 04/17/20 07:00 Weight - Most Recent: 87.362 kg I&O - Last 24 Hours: Intake & Output 04/16/20 04/17/20 04/17/20 22:59 06:59 14:59 Intake Total 4140 902 Output Total 650 950 Balance 3490 -48 Lab Results Last 24 Hours: Laboratory Results - last 24 hr 04/16/20 04/16/20 04/16/20 Range/Units 07:15 07:15 08:07 WBC (4.0-11.0) K/uL RBC (4.30-5.90) M/uL Hgb (12.0-16.0) g/dL Hct (36.0-46.0) % MCV (80.0-98.0) fL MCH (27.0-32.0) pg MCHC (31.0-37.0) g/dL RDW Std Deviation (28.0-62.0) fl RDW Coeff of Harshil (11.0-15.0) % Plt Count (150-400) K/uL MPV (7.40-12.00) fL Neut % (Auto) (48.0-80.0) % Lymph % (Auto) (16.0-40.0) % [place] % (Auto) (0.0-15.0) % Eos % (Auto) (0.0-7.0) % Baso % (Auto) (0.0-1.5) % Neut # (Auto) (1.4-5.7) K/uL Lymph # (Auto) (0.6-2.4) K/uL [place] # (Auto) (0.0-0.8) K/uL Eos # (Auto) (0.0-0.7) K/uL Baso # (Auto) (0.0-0.1) K/uL Nucleated RBC % /100WBC Nucleated RBCs # K/uL ABG pH (7.35-7.45) ABG pCO2 (35-45) mmHG ABG pO2 (75-100) mmHG ABG HCO3 (22-26) mEq/L ABG Total CO2 ABG Base Excess (-2.0-2.0) Sodium (136-145) mmol/L Potassium (3.5-5.1) mmol/L Chloride (98-107) mmol/L Carbon Dioxide (21.0-32.0) mmol/L BUN (7.0-18.0) mg/dL Creatinine (0.6-1.0) mg/dL Est Cr Clr Drug Dosing mL/min Estimated GFR (MDRD) ml/min Glucose (74-106) mg/dL POC Glucose 295 H (60-110) mg/dL Calcium (8.5-10.1) mg/dL Phosphorus (2.6-4.7) mg/dL Magnesium 1.8 (1.8-2.4) mg/dL Ketones SMALL H (NEG) 04/16/20 04/16/20 04/16/20 Range/Units 08:35 09:06 10:04 WBC (4.0-11.0) K/uL RBC (4.30-5.90) M/uL Hgb (12.0-16.0) g/dL Hct (36.0-46.0) % MCV (80.0-98.0) fL MCH (27.0-32.0) pg MCHC (31.0-37.0) g/dL RDW Std Deviation (28.0-62.0) fl RDW Coeff of Harshil (11.0-15.0) % Plt Count (150-400) K/uL MPV (7.40-12.00) fL Neut % (Auto) (48.0-80.0) % Lymph % (Auto) (16.0-40.0) % [place] % (Auto) (0.0-15.0) % Eos % (Auto) (0.0-7.0) % Baso % (Auto) (0.0-1.5) % Neut # (Auto) (1.4-5.7) K/uL Lymph # (Auto) (0.6-2.4) K/uL [place] # (Auto) (0.0-0.8) K/uL Eos # (Auto) (0.0-0.7) K/uL Baso # (Auto) (0.0-0.1) K/uL Nucleated RBC % /100WBC Nucleated RBCs # K/uL ABG pH 7.329 L (7.35-7.45) ABG pCO2 29 L (35-45) mmHG ABG pO2 76 (75-100) mmHG ABG HCO3 15 L (22-26) mEq/L ABG Total CO2 13.9 ABG Base Excess -9.6 L (-2.0-2.0) Sodium (136-145) mmol/L Potassium (3.5-5.1) mmol/L Chloride (98-107) mmol/L Carbon Dioxide (21.0-32.0) mmol/L BUN (7.0-18.0) mg/dL Creatinine (0.6-1.0) mg/dL Est Cr Clr Drug Dosing mL/min Estimated GFR (MDRD) ml/min Glucose (74-106) mg/dL POC Glucose 338 H 312 H (60-110) mg/dL Calcium (8.5-10.1) mg/dL Phosphorus (2.6-4.7) mg/dL Magnesium (1.8-2.4) mg/dL Ketones (NEG) 04/16/20 04/16/20 04/16/20 Range/Units 11:02 12:00 12:03 WBC (4.0-11.0) K/uL RBC (4.30-5.90) M/uL Hgb (12.0-16.0) g/dL Hct (36.0-46.0) % MCV (80.0-98.0) fL MCH (27.0-32.0) pg MCHC (31.0-37.0) g/dL RDW Std Deviation (28.0-62.0) fl RDW Coeff of Harshil (11.0-15.0) % Plt Count (150-400) K/uL MPV (7.40-12.00) fL Neut % (Auto) (48.0-80.0) % Lymph % (Auto) (16.0-40.0) % [place] % (Auto) (0.0-15.0) % Eos % (Auto) (0.0-7.0) % Baso % (Auto) (0.0-1.5) % Neut # (Auto) (1.4-5.7) K/uL Lymph # (Auto) (0.6-2.4) K/uL [place] # (Auto) (0.0-0.8) K/uL Eos # (Auto) (0.0-0.7) K/uL Baso # (Auto) (0.0-0.1) K/uL Nucleated RBC % /100WBC Nucleated RBCs # K/uL ABG pH (7.35-7.45) ABG pCO2 (35-45) mmHG ABG pO2 (75-100) mmHG ABG HCO3 (22-26) mEq/L ABG Total CO2 ABG Base Excess (-2.0-2.0) Sodium 138 (136-145) mmol/L Potassium 3.9 (3.5-5.1) mmol/L Chloride 109 H (98-107) mmol/L Carbon Dioxide 17.2 L (21.0-32.0) mmol/L BUN 12 (7.0-18.0) mg/dL Creatinine 0.8 (0.6-1.0) mg/dL Est Cr Clr Drug Dosing 63.41 mL/min Estimated GFR (MDRD) > 60.0 ml/min Glucose 337 H (74-106) mg/dL POC Glucose 321 H 303 H (60-110) mg/dL Calcium 8.2 L (8.5-10.1) mg/dL Phosphorus (2.6-4.7) mg/dL Magnesium (1.8-2.4) mg/dL Ketones (NEG) 04/16/20 04/16/20 04/16/20 Range/Units 13:07 14:12 15:05 WBC (4.0-11.0) K/uL RBC (4.30-5.90) M/uL Hgb (12.0-16.0) g/dL Hct (36.0-46.0) % MCV (80.0-98.0) fL MCH (27.0-32.0) pg MCHC (31.0-37.0) g/dL RDW Std Deviation (28.0-62.0) fl RDW Coeff of Harshil (11.0-15.0) % Plt Count (150-400) K/uL MPV (7.40-12.00) fL Neut % (Auto) (48.0-80.0) % Lymph % (Auto) (16.0-40.0) % [place] % (Auto) (0.0-15.0) % Eos % (Auto) (0.0-7.0) % Baso % (Auto) (0.0-1.5) % Neut # (Auto) (1.4-5.7) K/uL Lymph # (Auto) (0.6-2.4) K/uL [place] # (Auto) (0.0-0.8) K/uL Eos # (Auto) (0.0-0.7) K/uL Baso # (Auto) (0.0-0.1) K/uL Nucleated RBC % /100WBC Nucleated RBCs # K/uL ABG pH (7.35-7.45) ABG pCO2 (35-45) mmHG ABG pO2 (75-100) mmHG ABG HCO3 (22-26) mEq/L ABG Total CO2 ABG Base Excess (-2.0-2.0) Sodium (136-145) mmol/L Potassium (3.5-5.1) mmol/L Chloride (98-107) mmol/L Carbon Dioxide (21.0-32.0) mmol/L BUN (7.0-18.0) mg/dL Creatinine (0.6-1.0) mg/dL Est Cr Clr Drug Dosing mL/min Estimated GFR (MDRD) ml/min Glucose (74-106) mg/dL POC Glucose 325 H 349 H 325 H (60-110) mg/dL Calcium (8.5-10.1) mg/dL Phosphorus (2.6-4.7) mg/dL Magnesium (1.8-2.4) mg/dL Ketones (NEG) 04/16/20 04/16/20 04/16/20 Range/Units 16:13 16:14 17:07 WBC (4.0-11.0) K/uL RBC (4.30-5.90) M/uL Hgb (12.0-16.0) g/dL Hct (36.0-46.0) % MCV (80.0-98.0) fL MCH (27.0-32.0) pg MCHC (31.0-37.0) g/dL RDW Std Deviation (28.0-62.0) fl RDW Coeff of Harshil (11.0-15.0) % Plt Count (150-400) K/uL MPV (7.40-12.00) fL Neut % (Auto) (48.0-80.0) % Lymph % (Auto) (16.0-40.0) % [place] % (Auto) (0.0-15.0) % Eos % (Auto) (0.0-7.0) % Baso % (Auto) (0.0-1.5) % Neut # (Auto) (1.4-5.7) K/uL Lymph # (Auto) (0.6-2.4) K/uL [place] # (Auto) (0.0-0.8) K/uL Eos # (Auto) (0.0-0.7) K/uL Baso # (Auto) (0.0-0.1) K/uL Nucleated RBC % /100WBC Nucleated RBCs # K/uL ABG pH (7.35-7.45) ABG pCO2 (35-45) mmHG ABG pO2 (75-100) mmHG ABG HCO3 (22-26) mEq/L ABG Total CO2 ABG Base Excess (-2.0-2.0) Sodium 137 (136-145) mmol/L Potassium 3.6 (3.5-5.1) mmol/L Chloride 108 H (98-107) mmol/L Carbon Dioxide 18.7 L (21.0-32.0) mmol/L BUN 10 (7.0-18.0) mg/dL Creatinine 0.8 (0.6-1.0) mg/dL Est Cr Clr Drug Dosing 63.41 mL/min Estimated GFR (MDRD) > 60.0 ml/min Glucose 325 H (74-106) mg/dL POC Glucose 273 H 278 H (60-110) mg/dL Calcium 8.6 (8.5-10.1) mg/dL Phosphorus (2.6-4.7) mg/dL Magnesium (1.8-2.4) mg/dL Ketones (NEG) 04/16/20 04/16/20 04/16/20 Range/Units 18:13 20:02 21:06 WBC (4.0-11.0) K/uL RBC (4.30-5.90) M/uL Hgb (12.0-16.0) g/dL Hct (36.0-46.0) % MCV (80.0-98.0) fL MCH (27.0-32.0) pg MCHC (31.0-37.0) g/dL RDW Std Deviation (28.0-62.0) fl RDW Coeff of Harshil (11.0-15.0) % Plt Count (150-400) K/uL MPV (7.40-12.00) fL Neut % (Auto) (48.0-80.0) % Lymph % (Auto) (16.0-40.0) % [place] % (Auto) (0.0-15.0) % Eos % (Auto) (0.0-7.0) % Baso % (Auto) (0.0-1.5) % Neut # (Auto) (1.4-5.7) K/uL Lymph # (Auto) (0.6-2.4) K/uL [place] # (Auto) (0.0-0.8) K/uL Eos # (Auto) (0.0-0.7) K/uL Baso # (Auto) (0.0-0.1) K/uL Nucleated RBC % /100WBC Nucleated RBCs # K/uL ABG pH (7.35-7.45) ABG pCO2 (35-45) mmHG ABG pO2 (75-100) mmHG ABG HCO3 (22-26) mEq/L ABG Total CO2 ABG Base Excess (-2.0-2.0) Sodium 138 (136-145) mmol/L Potassium 3.5 (3.5-5.1) mmol/L Chloride 108 H (98-107) mmol/L Carbon Dioxide 17.8 L (21.0-32.0) mmol/L BUN 9 (7.0-18.0) mg/dL Creatinine 0.7 (0.6-1.0) mg/dL Est Cr Clr Drug Dosing 72.47 mL/min Estimated GFR (MDRD) > 60.0 ml/min Glucose 290 H (74-106) mg/dL POC Glucose 285 H 293 H (60-110) mg/dL Calcium 8.4 L (8.5-10.1) mg/dL Phosphorus 1.4 L (2.6-4.7) mg/dL Magnesium (1.8-2.4) mg/dL Ketones (NEG) 04/17/20 04/17/20 04/17/20 Range/Units 05:35 05:35 05:35 WBC 9.07 (4.0-11.0) K/uL RBC 3.73 L (4.30-5.90) M/uL Hgb 10.7 L (12.0-16.0) g/dL Hct 31.6 L (36.0-46.0) % MCV 84.7 (80.0-98.0) fL MCH 28.7 (27.0-32.0) pg MCHC 33.9 (31.0-37.0) g/dL RDW Std Deviation 39.8 (28.0-62.0) fl RDW Coeff of Harshil 13 (11.0-15.0) % Plt Count 357 (150-400) K/uL MPV 9.20 (7.40-12.00) fL Neut % (Auto) 68.3 (48.0-80.0) % Lymph % (Auto) 23.2 (16.0-40.0) % [place] % (Auto) 7.9 (0.0-15.0) % Eos % (Auto) 0.4 (0.0-7.0) % Baso % (Auto) 0.2 (0.0-1.5) % Neut # (Auto) 6.2 H (1.4-5.7) K/uL Lymph # (Auto) 2.1 (0.6-2.4) K/uL [place] # (Auto) 0.7 (0.0-0.8) K/uL Eos # (Auto) 0.0 (0.0-0.7) K/uL Baso # (Auto) 0.0 (0.0-0.1) K/uL Nucleated RBC % 0.0 /100WBC Nucleated RBCs # 0 K/uL ABG pH (7.35-7.45) ABG pCO2 (35-45) mmHG ABG pO2 (75-100) mmHG ABG HCO3 (22-26) mEq/L ABG Total CO2 ABG Base Excess (-2.0-2.0) Sodium 139 (136-145) mmol/L Potassium 3.3 L (3.5-5.1) mmol/L Chloride 108 H (98-107) mmol/L Carbon Dioxide 19.3 L (21.0-32.0) mmol/L BUN 8 (7.0-18.0) mg/dL Creatinine 0.7 (0.6-1.0) mg/dL Est Cr Clr Drug Dosing 72.47 mL/min Estimated GFR (MDRD) > 60.0 ml/min Glucose 277 H (74-106) mg/dL POC Glucose (60-110) mg/dL Calcium 8.5 (8.5-10.1) mg/dL Phosphorus 1.8 L (2.6-4.7) mg/dL Magnesium 1.6 L (1.8-2.4) mg/dL Ketones (NEG) 04/17/20 Range/Units 07:38 WBC (4.0-11.0) K/uL RBC (4.30-5.90) M/uL Hgb (12.0-16.0) g/dL Hct (36.0-46.0) % MCV (80.0-98.0) fL MCH (27.0-32.0) pg MCHC (31.0-37.0) g/dL RDW Std Deviation (28.0-62.0) fl RDW Coeff of Harshil (11.0-15.0) % Plt Count (150-400) K/uL MPV (7.40-12.00) fL Neut % (Auto) (48.0-80.0) % Lymph % (Auto) (16.0-40.0) % [place] % (Auto) (0.0-15.0) % Eos % (Auto) (0.0-7.0) % Baso % (Auto) (0.0-1.5) % Neut # (Auto) (1.4-5.7) K/uL Lymph # (Auto) (0.6-2.4) K/uL [place] # (Auto) (0.0-0.8) K/uL Eos # (Auto) (0.0-0.7) K/uL Baso # (Auto) (0.0-0.1) K/uL Nucleated RBC % /100WBC Nucleated RBCs # K/uL ABG pH (7.35-7.45) ABG pCO2 (35-45) mmHG ABG pO2 (75-100) mmHG ABG HCO3 (22-26) mEq/L ABG Total CO2 ABG Base Excess (-2.0-2.0) Sodium (136-145) mmol/L Potassium (3.5-5.1) mmol/L Chloride (98-107) mmol/L Carbon Dioxide (21.0-32.0) mmol/L BUN (7.0-18.0) mg/dL Creatinine (0.6-1.0) mg/dL Est Cr Clr Drug Dosing mL/min Estimated GFR (MDRD) ml/min Glucose (74-106) mg/dL POC Glucose 301 H (60-110) mg/dL Calcium (8.5-10.1) mg/dL Phosphorus (2.6-4.7) mg/dL Magnesium (1.8-2.4) mg/dL Ketones (NEG) Harpreet Results Last 24 Hours: Microbiology 04/15/20 11:28 Aerobic Blood Culture - Preliminary Blood - Venous - Lab Draw NO GROWTH AFTER 1 DAY Anaerobic Blood Culture - Preliminary NO GROWTH AFTER 1 DAY 04/15/20 11:12 Aerobic Blood Culture - Preliminary Blood - Venous NO GROWTH AFTER 1 DAY Anaerobic Blood Culture - Preliminary NO GROWTH AFTER 1 DAY Med Orders - Current: Current Medications Insulin Human Regular 100 unit (/ Sodium Chloride) 100 mls @ 6 mls/hr IV TITRATE [facility]; Protocol Last Titration: 04/16/20 18:30 Dose: 0 unit/hr, 0 mls/hr Documented by: Pantoprazole Sodium 40 mg/ (Sodium Chloride) 10 mls @ 300 mls/hr IV DAILY [facility] Last Admin: 04/17/20 08:02 Dose: 300 mls/hr Documented by: Vancomycin HCl 1.25 gm/ Sodium (Chloride) 250 mls @ 166.667 mls/hr IV Q12H [facility] Last Admin: 04/17/20 00:54 Dose: 166.667 mls/hr Documented by: Ceftriaxone Sodium/Dextrose 1 (gm/ Premix) 50 mls @ 100 mls/hr IV Q24H [facility] Last Admin: 04/16/20 13:00 Dose: 100 mls/hr Documented by: Lactated Ringer's (Ringers, Lactated) 1,000 mls @ 100 mls/hr IV ASDIRECTED [facility] Last Admin: 04/17/20 00:54 Dose: 100 mls/hr Documented by: Magnesium Sulfate 2 gm/ Premix 50 mls @ 50 mls/hr IV ONETIME ONE Stop: 04/17/20 08:25 Last Admin: 04/17/20 07:59 Dose: 50 mls/hr Documented by: Potassium Phosphate 27 mmole/ (Sodium Chloride) 509 mls @ 127.25 mls/hr IV ONETIME ONE Stop: 04/17/20 12:09 Insulin Aspart (Novolog) 0 unit SUBCUT QIDACANDBED [facility]; Protocol Last Admin: 04/17/20 07:44 Dose: 8 unit Documented by: Insulin Glargine (Lantus Solostar) 10 units SUBCUT DAILY [facility] Last Admin: 04/16/20 17:20 Dose: 10 units Documented by: Morphine Sulfate (Morphine) 1 mg IVPUSH Q3H PRN PRN Reason: Pain Last Admin: 04/16/20 15:38 Dose: 1 mg Documented by: Ondansetron HCl (Zofran) 4 mg IVPUSH Q4H PRN PRN Reason: Nausea/Vomiting Last Admin: 04/17/20 05:55 Dose: 4 mg Documented by: Sodium Phosphate (Neutra-Phos) 250 mg PO QID [facility] Last Admin: 04/17/20 05:01 Dose: 250 mg Documented by: Vancomycin HCl (Pharmacy To Dose - Vancomycin) 1 dose .XX ASDIRECTED [facility] Discontinued Medications Cefazolin Sodium (Ancef) Confirm Administered Dose 2 gm .ROUTE .STK-MED ONE Stop: 04/16/20 08:59 Sodium Chloride (Normal Saline) 1,000 mls @ 999 mls/hr IV BOLUS ONE Stop: 04/15/20 11:23 Last Admin: 04/15/20 10:37 Dose: 999 mls/hr Documented by: Ceftriaxone Sodium/Dextrose 2 (gm/ Premix) 50 mls @ 100 mls/hr IV ONETIME ONE Stop: 04/15/20 11:32 Last Admin: 04/15/20 11:14 Dose: 100 mls/hr Documented by: Lactated Ringer's (Ringers, Lactated) 1,000 mls @ 999 mls/hr IV ASDIRECTED [facility] Last Admin: 04/15/20 12:52 Dose: 999 mls/hr Documented by: Lactated Ringer's (Ringers, Lactated) 1,000 mls @ 999 mls/hr IV ASDIRECTED [facility] Last Admin: 04/15/20 15:15 Dose: 200 mls/hr Documented by: Vancomycin HCl 1.5 gm/ Premix 300 mls @ 150 mls/hr IV ONETIME ONE Stop: 04/15/20 14:29 Last Admin: 04/15/20 12:52 Dose: 150 mls/hr Documented by: Sodium Chloride (Normal Saline) 1,000 mls @ 200 mls/hr IV CONTINUOUS ONE Stop: 04/15/20 20:05 Last Admin: 04/15/20 20:14 Dose: 200 mls/hr Documented by: Ceftriaxone Sodium 1 gm/ (Sodium Chloride) 50 mls @ 100 mls/hr IV Q24H [facility] Dextrose/Sodium Chloride (Dextrose 5%-1/2 Ns) 1,000 mls @ 200 mls/hr IV ASDIRECTED [facility] Last Admin: 04/16/20 06:21 Dose: 200 mls/hr Documented by: Potassium Chloride 40 meq/ (Premix) 100 mls @ 25 mls/hr IV ONETIME ONE Stop: 04/16/20 09:09 Last Admin: 04/16/20 05:20 Dose: 25 mls/hr Documented by: Lactated Ringer's (Ringers, Lactated) 1,000 mls @ 500 mls/hr IV ASDIRECTED [facility] Last Admin: 04/16/20 12:58 Dose: 500 mls/hr Documented by: Potassium Phosphate 15 mmole/ (Sodium Chloride) 255 mls @ 63.75 mls/hr IV NOW ONE Stop: 04/16/20 13:29 Last Admin: 04/16/20 09:21 Dose: 63.75 mls/hr Documented by: Dextrose/Sodium Chloride (Dextrose 5%-1/2 Ns) 1,000 mls @ 150 mls/hr IV ASDIRECTED [facility] Last Admin: 04/16/20 11:45 Dose: 150 mls/hr Documented by: Lactated Ringer's (Ringers, Lactated) 1,000 mls @ 100 mls/hr IV ASDIRECTED [facility] Insulin Human Regular (Novolin R) Confirm Administered Dose 1,000 unit .ROUTE .STK-MED ONE Stop: 04/15/20 12:47 Last Admin: 04/15/20 12:52 Dose: Not Given Documented by: Iopamidol (Isovue Multipack-370 (76%)) 80 ml IVPUSH ONETIME ONE Stop: 04/15/20 13:08 Last Admin: 04/15/20 13:08 Dose: 80 ml Documented by: Ondansetron HCl (Zofran) 4 mg IVPUSH ONETIME ONE Stop: 04/15/20 10:24 Last Admin: 04/15/20 10:37 Dose: 4 mg Documented by: Ondansetron HCl (Zofran) 8 mg IVPUSH Q6H PRN PRN Reason: Nausea Last Admin: 04/16/20 20:57 Dose: 8 mg Documented by: Sodium Phosphate (Neutra-Phos) 250 mg PO ONETIME ONE Stop: 04/16/20 19:00 Last Admin: 04/16/20 20:36 Dose: Not Given Documented by: Sodium Phosphate (Neutra-Phos) 250 mg PO ONETIME ONE Stop: 04/17/20 07:32 - Exam General: Alert, Oriented HEENT: EOMI Neck: Supple Lungs: Clear to Auscultation, Normal Respiratory Effort Cardiovascular: Regular Rate, Regular Rhythm GI/Abdominal Exam: Soft Extremities: Non-Tender, Other (mild upper extremity swelling ; no lower extremity edema noted ) Skin: Warm, Dry, Intact Neurological: No New Focal Deficit Psy/Mental Status: Alert, Normal Affect, Normal Mood Sepsis Event Note - Evaluation Sepsis Screening Result: No Definite Risk - Focused Exam Vital Signs: Vital Signs Temp Resp BP Pulse Ox 04/17/20 07:00 19 161/77 H 96 04/17/20 06:00 16 164/80 H 95 04/17/20 05:00 98.9 F 18 154/73 H 95 04/17/20 04:00 18 140/70 97 04/17/20 03:00 18 157/77 H 97 04/17/20 02:00 20 148/72 H 96 04/17/20 01:00 98.7 F 17 136/65 98 04/17/20 00:00 18 164/84 H 98 04/16/20 23:00 15 136/70 99 04/16/20 22:00 19 142/67 H 98 04/16/20 21:00 20 163/81 H 98 - Problem List Review Problem List Initiated/Reviewed/Updated: Yes - My Orders Last 24 Hours: My Active Orders 04/16/20 12:00 cefTRIAXone [Rocephin in Dextrose,Iso-Osm 1 GM/50 ML] 1 gm Premix Bag 1 bag IV Q24H 04/18/20 05:11 CBC WITH AUTO DIFF [HEME] AM - Plan Plan:: Assessment/Plan: 1. Labial Abscess formation w. cellulitis- Patient to continue vancomycin and ceftriaxone antibiotics. DKA improving w. AG closed; receiving fluids+electrolyte replacement PRN. Awaiting clearance from anesthesia for I&D of labial abscess. 2. DKA- AG closed; replace electrolytes as need; replaced this AM by eICU; dc insulin GTT; sub q Insulin : Levemir 10 daily; possible increase to 12 daily; will recheck BG throughout day w. sliding scale DM educator consulted; will wait till procedure before diabetes education conversation N/V: overnight Zofran change to [id number]; improving Nausea Hypokalemia-Hypomagnesemia: recheck labs in AM We appreciate EICU help in managing this patient
--- NOTE | 2020-04-17 09:27 | PN ---
THC Physician - Brief Progress [id number]/31/2020 09:24[facility] Kain Medina ND - MWN [facility] - ISAIAS RAMSORAIDA GUTIERREZGrisDate of Service 04/17/2020 09:24HPI/Event s of Note eICU Progress [id number] admitted for DKA. History obtained primarily from review of EMR.Anion gap closed. On review of orders patient is on glargine, and sliding scale aspart, however insulin dr ip appears in order listCamera exam: Laying in bed. Vitals monitor reviewed, vital signs stable. Unab le to read drips due to tubing in the way.eICU Impression and Recommendations:Diabetic ketoacidosis, resolvedLabial abscessAnion gap closedRecommend transition from continuous IV insulin to subcutaneous insulin (if not already done), subcutaneous insulin appears to have already been ordered.Diet/NPO st atus per surgeryDefer I&D timing to surgeryContinue antibioticsDVT and GI prophylaxis as appropriate. Thank you for allowing us to participate in the care of this patient.The above note transcribed with the assistance of dictation software. Please excuse any errors.Interventions Major-Infection - evalua tion and management
[2020-04-17] MEDS: Insulin Glargine,Human Rec. Analog 100 Units/ML 3 ML Pen SUBCUT SCH (09:29)
[2020-04-17] MEDS: cefTRIAXone 1 GM in Premix Bag 1 BAG IV SCH (11:39)
--- NOTE | 2020-04-17 11:45 | PCM.SN.2 ---
- Free Text/Narrative Note: pt examined and chart reviewed at 1130, Pt npo since 8 am. OK for GA/mask or GA/LMA to day about 1200
[2020-04-17] MEDS ORDERED: Chloroprocaine 10 MG/ML 5 ML Amp ONE (12:04)
[2020-04-17] MEDS ORDERED: Propofol 200 MG/20 ML SDV ONE (12:16)
[2020-04-17] MEDS ORDERED: Midazolam 1 MG/ML 2 ML SDV ONE (12:16)
[2020-04-17] MEDS ORDERED: fentaNYL 100 MCG/2 ML SDV ONE (12:16)
[2020-04-17] MEDS ORDERED: Glycopyrrolate 0.2 MG/ML SDV ONE (12:17)
[2020-04-17] MEDS ORDERED: Ondansetron 4 MG/2 ML SDV ONE (12:17)
[2020-04-17] MEDS ORDERED: Ketorolac 30 MG/ML SDV ONE (12:17)
[2020-04-17] MEDS ORDERED: HYDROmorphone 1 MG/ML Syringe IM ONE (13:34)
[2020-04-17] MEDS ORDERED: HYDROmorphone 2 MG/ML Syringe ONE (13:36)
[2020-04-17] MEDS ORDERED: Acetaminophen 500 MG Tab PO PRN (13:44)
--- NOTE | 2020-04-17 14:04 | PCM.POSTAN ---
POST ANESTHESIA ASSESSMENT - MENTAL STATUS Mental Status: Alert, Oriented - VITAL SIGNS Vital Signs: Last Vital Signs Temp 98.6 F 04/17/20 13:16 Pulse 69 04/17/20 13:56 Resp 13 04/17/20 13:56 BP 113/68 04/17/20 13:56 Pulse Ox 98 04/17/20 13:56 - RESPIRATORY Respiratory Status: Respiratory Rate WNL, Airway Patent, O2 Saturation Stable - CARDIOVASCULAR CV Status: Pulse Rate WNL, Blood Pressure Stable - GASTROINTESTINAL GI Status: No Symptoms - POST OP HYDRATION Hydration Status: Adequate & Stable
--- NOTE | 2020-04-17 16:39 | CONS ---
DATE OF CONSULTATION: 04/15/2020 DATE OF : 1960 PRIMARY CARE PHYSICIAN: Not In Area PCP PHYSICIANS REQUESTING THE CONSULTATION: The ER doctor and Dr. Layton. ADMITTING DIAGNOSES: Diabetic ketoacidosis, left labial abscess. HISTORY AND PHYSICAL: For detail of her history and physical, the reader referred to the admit note and to the ER note. Briefly, this patient is 60. She is postmenopausal. She recently moved to our area. She is known to be a diabetic. However, she was on diet control. She was not taking any medication for this diabetes. She presented to the emergency room with what she complained swelling on the left labia that was later on resolved to be a left labial abscess. However, the patient was in DKA, and I was consulted and my advice for the ER doctor and Dr. Layton to admit the patient and to deal with her DKA at this time and to start her on IV antibiotic, and once she is stabilized and her DKA is resolved, then we will schedule the patient for I and D of her left labial abscess, and I am also going to consult Anesthesia for this matter for the anesthesia procedure. I saw the patient and I explained that to her in detail and I answered all her question and she signed the informed consent. SEVERIANO / RAMAN /[id number]
[2020-04-17] MEDS: Morphine 2 MG/ML SYRINGE IVPUSH PRN (23:17)
[2020-04-18] MEDS: Lactated Ringers 1,000 ML IV SCH ×2 (04:58→22:16)
[2020-04-18 06:16] LABS: BLOOD UREA NITROGEN,BUN 5 mg/dL (7.0-18.0); CARBON DIOXIDE,CO2 23.7 mmol/L (21.0-32.0); CHLORIDE,CL 106 mmol/L (98-107); GLUCOSE RANDOM 230 mg/dL (74-106); POTASSIUM,K 3.1 mmol/L (3.5-5.1); SODIUM,NA 139 mmol/L (136-145)
--- NOTE | 2020-04-18 07:19 | PCM48HPAN ---
Post Anesthesia Note - EVALUATION WITHIN 48HRS OF ANESTHETIC Vital Signs in Normal Range: Yes Patient Participated in Evaluation: Yes Respiratory Function Stable: Yes Airway Patent: Yes Cardiovascular Function Stable: Yes Hydration Status Stable: Yes Pain Control Satisfactory: Yes Nausea and Vomiting Control Satisfactory: Yes Mental Status Recovered: Yes Vital Signs: Last Vital Signs Temp 37.2 C 04/18/20 04:00 Pulse 77 04/18/20 04:00 Resp 18 04/18/20 04:00 BP 132/71 04/18/20 04:00 Pulse Ox 97 04/18/20 04:00
[2020-04-18] MEDS ORDERED: Potassium Chloride 20 MEQ Tab.ER PO ONE ×2 (08:04→08:05)
[2020-04-18] MEDS ORDERED: Magnesium Sulfate/Water 2 GM in Premix Bag 1 BAG IV ONE (08:07)
[2020-04-18] MEDS: Insulin Aspart 100 Units/ML 3 ML Pen SUBCUT SCH ×6 (08:10→21:45)
[2020-04-18] MEDS: Pantoprazole 40 MG in Sodium Chloride 0.9% 10 ML IV SCH (08:38)
[2020-04-18] MEDS ORDERED: Insulin Glargine,Human Rec. Analog 100 Units/ML 3 ML Pen SUBCUT SCH (09:00)
--- NOTE | 2020-04-18 09:07 | PCM.PN ---
- General Info Date of Service: 04/18/20 Subjective Update: Bedside: not endorsing any new pain and or discomfort; feeling tired but eating/drinking and voiding w.o issues Functional Status: Reports: Pain Controlled - Review of Systems General: Reports: No Symptoms HEENT: Reports: No Symptoms Pulmonary: Reports: No Symptoms Cardiovascular: Reports: No Symptoms Gastrointestinal: Reports: No Symptoms Genitourinary: Reports: No Symptoms Musculoskeletal: Reports: No Symptoms Skin: Reports: No Symptoms Neurological: Reports: No Symptoms - Patient Data Vitals - Most Recent: Last Vital Signs Temp 99 F 04/18/20 04:00 Pulse 77 04/18/20 04:00 Resp 18 04/18/20 04:00 BP 132/71 04/18/20 04:00 Pulse Ox 97 04/18/20 04:00 Weight - Most Recent: 87.362 kg I&O - Last 24 Hours: Intake & Output 04/17/20 04/18/20 04/18/20 22:59 06:59 14:59 Intake Total 1082 1503 Output Total 650 350 Balance 432 1153 Lab Results Last 24 Hours: Laboratory Results - last 24 hr 04/15/20 04/17/20 04/17/20 Range/Units 11:31 09:00 11:32 WBC (4.0-11.0) K/uL RBC (4.30-5.90) M/uL Hgb (12.0-16.0) g/dL Hct (36.0-46.0) % MCV (80.0-98.0) fL MCH (27.0-32.0) pg MCHC (31.0-37.0) g/dL RDW Std Deviation (28.0-62.0) fl RDW Coeff of Harshil (11.0-15.0) % Plt Count (150-400) K/uL MPV (7.40-12.00) fL Neut % (Auto) (48.0-80.0) % Lymph % (Auto) (16.0-40.0) % Day % (Auto) (0.0-15.0) % Eos % (Auto) (0.0-7.0) % Baso % (Auto) (0.0-1.5) % Neut # (Auto) (1.4-5.7) K/uL Lymph # (Auto) (0.6-2.4) K/uL Day # (Auto) (0.0-0.8) K/uL Eos # (Auto) (0.0-0.7) K/uL Baso # (Auto) (0.0-0.1) K/uL Nucleated RBC % /100WBC Nucleated RBCs # K/uL ABG pH 7.435 (7.35-7.45) ABG pCO2 29 L (35-45) mmHG ABG pO2 107 H (75-100) mmHG ABG HCO3 19 L (22-26) mEq/L ABG Total CO2 17.7 ABG Base Excess -3.9 L (-2.0-2.0) Sodium (136-145) mmol/L Potassium (3.5-5.1) mmol/L Chloride (98-107) mmol/L Carbon Dioxide (21.0-32.0) mmol/L BUN (7.0-18.0) mg/dL Creatinine (0.6-1.0) mg/dL Est Cr Clr Drug Dosing mL/min Estimated GFR (MDRD) ml/min Glucose (74-106) mg/dL POC Glucose 241 H (60-110) mg/dL Serum Osmolality 326 H (275-295) mosm/kg Calcium (8.5-10.1) mg/dL Phosphorus (2.6-4.7) mg/dL Magnesium (1.8-2.4) mg/dL Vancomycin Trough (5.0-10.0) ug/mL 04/17/20 04/17/20 04/17/20 Range/Units 13:25 17:01 21:03 WBC (4.0-11.0) K/uL RBC (4.30-5.90) M/uL Hgb (12.0-16.0) g/dL Hct (36.0-46.0) % MCV (80.0-98.0) fL MCH (27.0-32.0) pg MCHC (31.0-37.0) g/dL RDW Std Deviation (28.0-62.0) fl RDW Coeff of Harshil (11.0-15.0) % Plt Count (150-400) K/uL MPV (7.40-12.00) fL Neut % (Auto) (48.0-80.0) % Lymph % (Auto) (16.0-40.0) % Day % (Auto) (0.0-15.0) % Eos % (Auto) (0.0-7.0) % Baso % (Auto) (0.0-1.5) % Neut # (Auto) (1.4-5.7) K/uL Lymph # (Auto) (0.6-2.4) K/uL Day # (Auto) (0.0-0.8) K/uL Eos # (Auto) (0.0-0.7) K/uL Baso # (Auto) (0.0-0.1) K/uL Nucleated RBC % /100WBC Nucleated RBCs # K/uL ABG pH (7.35-7.45) ABG pCO2 (35-45) mmHG ABG pO2 (75-100) mmHG ABG HCO3 (22-26) mEq/L ABG Total CO2 ABG Base Excess (-2.0-2.0) Sodium (136-145) mmol/L Potassium (3.5-5.1) mmol/L Chloride (98-107) mmol/L Carbon Dioxide (21.0-32.0) mmol/L BUN (7.0-18.0) mg/dL Creatinine (0.6-1.0) mg/dL Est Cr Clr Drug Dosing mL/min Estimated GFR (MDRD) ml/min Glucose (74-106) mg/dL POC Glucose 295 H 226 H (60-110) mg/dL Serum Osmolality (275-295) mosm/kg Calcium (8.5-10.1) mg/dL Phosphorus (2.6-4.7) mg/dL Magnesium (1.8-2.4) mg/dL Vancomycin Trough 9.6 (5.0-10.0) ug/mL 04/18/20 04/18/20 04/18/20 Range/Units 05:36 05:36 05:36 WBC 7.68 (4.0-11.0) K/uL RBC 3.14 L (4.30-5.90) M/uL Hgb 9.1 L (12.0-16.0) g/dL Hct 26.5 L (36.0-46.0) % MCV 84.4 (80.0-98.0) fL MCH 29.0 (27.0-32.0) pg MCHC 34.3 (31.0-37.0) g/dL RDW Std Deviation 39.1 (28.0-62.0) fl RDW Coeff of Harshil 13 (11.0-15.0) % Plt Count 286 (150-400) K/uL MPV 8.90 (7.40-12.00) fL Neut % (Auto) 62.3 (48.0-80.0) % Lymph % (Auto) 25.7 (16.0-40.0) % Day % (Auto) 10.5 (0.0-15.0) % Eos % (Auto) 1.2 (0.0-7.0) % Baso % (Auto) 0.3 (0.0-1.5) % Neut # (Auto) 4.8 (1.4-5.7) K/uL Lymph # (Auto) 2.0 (0.6-2.4) K/uL Day # (Auto) 0.8 (0.0-0.8) K/uL Eos # (Auto) 0.1 (0.0-0.7) K/uL Baso # (Auto) 0.0 (0.0-0.1) K/uL Nucleated RBC % 0.0 /100WBC Nucleated RBCs # 0 K/uL ABG pH (7.35-7.45) ABG pCO2 (35-45) mmHG ABG pO2 (75-100) mmHG ABG HCO3 (22-26) mEq/L ABG Total CO2 ABG Base Excess (-2.0-2.0) Sodium 139 (136-145) mmol/L Potassium 3.1 L (3.5-5.1) mmol/L Chloride 106 (98-107) mmol/L Carbon Dioxide 23.7 (21.0-32.0) mmol/L BUN 5 L (7.0-18.0) mg/dL Creatinine 0.4 L (0.6-1.0) mg/dL Est Cr Clr Drug Dosing 126.81 mL/min Estimated GFR (MDRD) > 60.0 ml/min Glucose 230 H (74-106) mg/dL POC Glucose (60-110) mg/dL Serum Osmolality (275-295) mosm/kg Calcium 7.5 L (8.5-10.1) mg/dL Phosphorus 2.6 (2.6-4.7) mg/dL Magnesium 1.7 L (1.8-2.4) mg/dL Vancomycin Trough (5.0-10.0) ug/mL 04/18/20 Range/Units 06:49 WBC (4.0-11.0) K/uL RBC (4.30-5.90) M/uL Hgb (12.0-16.0) g/dL Hct (36.0-46.0) % MCV (80.0-98.0) fL MCH (27.0-32.0) pg MCHC (31.0-37.0) g/dL RDW Std Deviation (28.0-62.0) fl RDW Coeff of Harshil (11.0-15.0) % Plt Count (150-400) K/uL MPV (7.40-12.00) fL Neut % (Auto) (48.0-80.0) % Lymph % (Auto) (16.0-40.0) % Day % (Auto) (0.0-15.0) % Eos % (Auto) (0.0-7.0) % Baso % (Auto) (0.0-1.5) % Neut # (Auto) (1.4-5.7) K/uL Lymph # (Auto) (0.6-2.4) K/uL Day # (Auto) (0.0-0.8) K/uL Eos # (Auto) (0.0-0.7) K/uL Baso # (Auto) (0.0-0.1) K/uL Nucleated RBC % /100WBC Nucleated RBCs # K/uL ABG pH (7.35-7.45) ABG pCO2 (35-45) mmHG ABG pO2 (75-100) mmHG ABG HCO3 (22-26) mEq/L ABG Total CO2 ABG Base Excess (-2.0-2.0) Sodium (136-145) mmol/L Potassium (3.5-5.1) mmol/L Chloride (98-107) mmol/L Carbon Dioxide (21.0-32.0) mmol/L BUN (7.0-18.0) mg/dL Creatinine (0.6-1.0) mg/dL Est Cr Clr Drug Dosing mL/min Estimated GFR (MDRD) ml/min Glucose (74-106) mg/dL POC Glucose 220 H (60-110) mg/dL Serum Osmolality (275-295) mosm/kg Calcium (8.5-10.1) mg/dL Phosphorus (2.6-4.7) mg/dL Magnesium (1.8-2.4) mg/dL Vancomycin Trough (5.0-10.0) ug/mL Harpreet Results Last 24 Hours: Microbiology 04/17/20 12:52 Gram Stain - Preliminary Labia - Left 04/15/20 11:28 Aerobic Blood Culture - Preliminary Blood - Venous - Lab Draw NO GROWTH AFTER 2 DAYS Anaerobic Blood Culture - Preliminary NO GROWTH AFTER 2 DAYS 04/15/20 11:12 Aerobic Blood Culture - Preliminary Blood - Venous NO GROWTH AFTER 2 DAYS Anaerobic Blood Culture - Preliminary NO GROWTH AFTER 2 DAYS 04/15/20 13:08 Urine Culture - Final Urine, Clean Catch MIXED MARCELO >100,000 CFU/ML Med Orders - Current: Current Medications Acetaminophen (Tylenol Extra Strength) 500 mg PO Q6H PRN PRN Reason: Fever Last Admin: 04/17/20 19:25 Dose: 500 mg Documented by: Pantoprazole Sodium 40 mg/ (Sodium Chloride) 10 mls @ 300 mls/hr IV DAILY [facility] Last Admin: 04/18/20 08:38 Dose: 300 mls/hr Documented by: Vancomycin HCl 1.25 gm/ Sodium (Chloride) 250 mls @ 166.667 mls/hr IV Q12H [facility] Last Admin: 04/18/20 00:48 Dose: 166.667 mls/hr Documented by: Ceftriaxone Sodium/Dextrose 1 (gm/ Premix) 50 mls @ 100 mls/hr IV Q24H [facility] Last Admin: 04/17/20 11:39 Dose: 100 mls/hr Documented by: Lactated Ringer's (Ringers, Lactated) 1,000 mls @ 75 mls/hr IV ASDIRECTED [facility] Last Admin: 04/18/20 04:58 Dose: 100 mls/hr Documented by: Magnesium Sulfate 2 gm/ Premix 50 mls @ 50 mls/hr IV ONETIME ONE Stop: 04/18/20 09:06 Last Admin: 04/18/20 08:42 Dose: 50 mls/hr Documented by: Ibuprofen (Motrin) 400 mg PO Q4H PRN PRN Reason: Pain Insulin Aspart (Novolog) 0 unit SUBCUT QIDACANDBED [facility]; Protocol Last Admin: 04/18/20 08:10 Dose: 6 unit Documented by: Insulin Glargine (Lantus Solostar) 12 units SUBCUT DAILY [facility] Last Admin: 04/18/20 08:17 Dose: 12 units Documented by: Morphine Sulfate (Morphine) 1 mg IVPUSH Q3H PRN PRN Reason: Pain Last Admin: 04/17/20 23:17 Dose: 1 mg Documented by: Ondansetron HCl (Zofran) 4 mg IVPUSH Q4H PRN PRN Reason: Nausea/Vomiting Last Admin: 04/17/20 05:55 Dose: 4 mg Documented by: Vancomycin HCl (Pharmacy To Dose - Vancomycin) 1 dose .XX ASDIRECTED [facility] Discontinued Medications Cefazolin Sodium (Ancef) Confirm Administered Dose 2 gm .ROUTE .STK-MED ONE Stop: 04/16/20 08:59 Chloroprocaine HCl (Clorotekal) Confirm Administered Dose 5 ml .ROUTE .STK-MED ONE Stop: 04/17/20 12:05 Fentanyl (Sublimaze) Confirm Administered Dose 100 mcg .ROUTE .STK-MED ONE Stop: 04/17/20 12:17 Glycopyrrolate (Robinul) Confirm Administered Dose 0.2 mg .ROUTE .STK-MED ONE Stop: 04/17/20 12:18 Hydromorphone HCl (Dilaudid) 1 mg IM ONETIME ONE Stop: 04/17/20 13:35 Last Admin: 04/17/20 13:40 Dose: 0.5 mg Documented by: Hydromorphone HCl (Dilaudid) Confirm Administered Dose 2 mg .ROUTE .STK-MED ONE Stop: 04/17/20 13:37 Last Admin: 04/18/20 08:58 Dose: Not Given Documented by: Sodium Chloride (Normal Saline) 1,000 mls @ 999 mls/hr IV BOLUS ONE Stop: 04/15/20 11:23 Last Admin: 04/15/20 10:37 Dose: 999 mls/hr Documented by: Ceftriaxone Sodium/Dextrose 2 (gm/ Premix) 50 mls @ 100 mls/hr IV ONETIME ONE Stop: 04/15/20 11:32 Last Admin: 04/15/20 11:14 Dose: 100 mls/hr Documented by: Lactated Ringer's (Ringers, Lactated) 1,000 mls @ 999 mls/hr IV ASDIRECTED [facility] Last Admin: 04/15/20 12:52 Dose: 999 mls/hr Documented by: Insulin Human Regular 100 unit (/ Sodium Chloride) 100 mls @ 6 mls/hr IV TITRATE [facility]; Protocol Last Titration: 04/16/20 18:30 Dose: 0 unit/hr, 0 mls/hr Documented by: Lactated Ringer's (Ringers, Lactated) 1,000 mls @ 999 mls/hr IV ASDIRECTED [facility] Last Admin: 04/15/20 15:15 Dose: 200 mls/hr Documented by: Vancomycin HCl 1.5 gm/ Premix 300 mls @ 150 mls/hr IV ONETIME ONE Stop: 04/15/20 14:29 Last Admin: 04/15/20 12:52 Dose: 150 mls/hr Documented by: Sodium Chloride (Normal Saline) 1,000 mls @ 200 mls/hr IV CONTINUOUS ONE Stop: 04/15/20 20:05 Last Admin: 04/15/20 20:14 Dose: 200 mls/hr Documented by: Ceftriaxone Sodium 1 gm/ (Sodium Chloride) 50 mls @ 100 mls/hr IV Q24H [facility] Dextrose/Sodium Chloride (Dextrose 5%-1/2 Ns) 1,000 mls @ 200 mls/hr IV ASDIRECTED [facility] Last Admin: 04/16/20 06:21 Dose: 200 mls/hr Documented by: Potassium Chloride 40 meq/ (Premix) 100 mls @ 25 mls/hr IV ONETIME ONE Stop: 04/16/20 09:09 Last Admin: 04/16/20 05:20 Dose: 25 mls/hr Documented by: Lactated Ringer's (Ringers, Lactated) 1,000 mls @ 500 mls/hr IV ASDIRECTED [facility] Last Admin: 04/16/20 12:58 Dose: 500 mls/hr Documented by: Potassium Phosphate 15 mmole/ (Sodium Chloride) 255 mls @ 63.75 mls/hr IV NOW ONE Stop: 04/16/20 13:29 Last Admin: 04/16/20 09:21 Dose: 63.75 mls/hr Documented by: Dextrose/Sodium Chloride (Dextrose 5%-1/2 Ns) 1,000 mls @ 150 mls/hr IV ASDIRECTED [facility] Last Admin: 04/16/20 11:45 Dose: 150 mls/hr Documented by: Lactated Ringer's (Ringers, Lactated) 1,000 mls @ 100 mls/hr IV ASDIRECTED [facility] Magnesium Sulfate 2 gm/ Premix 50 mls @ 50 mls/hr IV ONETIME ONE Stop: 04/17/20 08:25 Last Admin: 04/17/20 07:59 Dose: 50 mls/hr Documented by: Potassium Phosphate 27 mmole/ (Sodium Chloride) 509 mls @ 127.25 mls/hr IV ONETIME ONE Stop: 04/17/20 12:09 Last Admin: 04/17/20 08:24 Dose: 127.25 mls/hr Documented by: Insulin Glargine (Lantus Solostar) 10 units SUBCUT DAILY [facility] Last Admin: 04/17/20 09:29 Dose: 10 units Documented by: Insulin Human Regular (Novolin R) Confirm Administered Dose 1,000 unit .ROUTE .STK-MED ONE Stop: 04/15/20 12:47 Last Admin: 04/15/20 12:52 Dose: Not Given Documented by: Iopamidol (Isovue Multipack-370 (76%)) 80 ml IVPUSH ONETIME ONE Stop: 04/15/20 13:08 Last Admin: 04/15/20 13:08 Dose: 80 ml Documented by: Ketorolac Tromethamine (Toradol) Confirm Administered Dose 30 mg .ROUTE .STK-MED ONE Stop: 04/17/20 12:18 Lidocaine HCl (Xylocaine-Mpf 1%) Confirm Administered Dose 5 ml .ROUTE .STK-MED ONE Stop: 04/17/20 12:18 Midazolam HCl (Versed 1 Mg/Ml) Confirm Administered Dose 2 mg .ROUTE .STK-MED ONE Stop: 04/17/20 12:17 Ondansetron HCl (Zofran) 4 mg IVPUSH ONETIME ONE Stop: 04/15/20 10:24 Last Admin: 04/15/20 10:37 Dose: 4 mg Documented by: Ondansetron HCl (Zofran) 8 mg IVPUSH Q6H PRN PRN Reason: Nausea Last Admin: 04/16/20 20:57 Dose: 8 mg Documented by: Ondansetron HCl (Zofran) Confirm Administered Dose 4 mg .ROUTE .STK-MED ONE Stop: 04/17/20 12:18 Potassium Chloride (Klor-Con M20) 40 meq PO ONETIME ONE Stop: 04/18/20 08:05 Last Admin: 04/18/20 08:40 Dose: 40 meq Documented by: Potassium Chloride (Klor-Con M20) 20 meq PO ONETIME ONE Stop: 04/18/20 08:06 Last Admin: 04/18/20 08:41 Dose: 20 meq Documented by: Propofol (Diprivan 20 Ml) Confirm Administered Dose 200 mg .ROUTE .STK-MED ONE Stop: 04/17/20 12:17 Sodium Phosphate (Neutra-Phos) 250 mg PO ONETIME ONE Stop: 04/16/20 19:00 Last Admin: 04/16/20 20:36 Dose: Not Given Documented by: Sodium Phosphate (Neutra-Phos) 250 mg PO QID ALISA Last Admin: 04/17/20 05:01 Dose: 250 mg Documented by: Sodium Phosphate (Neutra-Phos) 250 mg PO ONETIME ONE Stop: 04/17/20 07:32 - Exam Quality Assessment: No: Supplemental Oxygen General: Alert, Oriented, Cooperative, No Acute Distress HEENT: EOMI Neck: Supple Lungs: Normal Respiratory Effort, Other (mild end expiratory wheeze ) Cardiovascular: Regular Rate, Regular Rhythm GI/Abdominal Exam: Soft, Non-Tender (Female) Exam: Other (packing in-situ ) Back Exam: Normal Inspection Extremities: Normal Inspection Wound/Incisions: Dressing Dry and Intact Neurological: No New Focal Deficit Psy/Mental Status: Alert, Normal Affect, Normal Mood Sepsis Event Note - Evaluation Sepsis Screening Result: No Definite Risk - Focused Exam Vital Signs: Vital Signs Temp Pulse Resp BP Pulse Ox 04/18/20 04:00 99 F 77 18 132/71 97 - Problem List Review Problem List Initiated/Reviewed/Updated: Yes - My Orders Last 24 Hours: My Active Orders 04/17/20 13:44 Acetaminophen [Tylenol Extra Strength] 500 mg PO Q6H PRN 04/17/20 13:45 Ibuprofen [Motrin] 400 mg PO Q4H PRN 04/17/20 15:43 Transfer Patient (Change bed) [ADT] Routine 04/18/20 08:07 Magnesium Sulfate/Water [Magnesium Sulfate in Water Premix] 2 gm Premix Bag 1 bag IV ONETIME 04/18/20 09:00 Insulin Glarg,Human.Rec.Analog [LantUS Solostar] 12 units SUBCUT DAILY 04/19/20 05:11 BASIC METABOLIC PANEL,BMP [CHEM] AM MAGNESIUM [CHEM] AM 04/20/20 05:11 BASIC METABOLIC PANEL,BMP [CHEM] AM MAGNESIUM [CHEM] AM - Plan Plan:: Assessment/Plan: 1. Labial Abscess formation w. cellulitis- Patient to continue vancomycin and ceftriaxone antibiotics. POD#1: dressing ini-situ w.o drainage. . Pain controlled and afebrile. Recheck dressing w. OB in AM Pt will require 1-week post-op follow up with lead athlete and dressing changes per s urgery thereafter. (possible home health; pt however is from [place]; will discuss aftercare instructions once cleared from Ob-surgery) Mild wheezing on examination this AM; recommend IS and ambulation; pt understood and agreed 2. DKA- AG closed; Levemir 14 daily; will recheck BG throughout day w. sliding scale+ 3 additional meal time units of SA insulin for better control of BG DM educator consulted Hypokalemia-Hypomagnesemia: electrolytes replaced this AM; recheck tomorrow in AM
[2020-04-18] MEDS: Ibuprofen 400 MG Tab PO PRN (10:18)
--- NOTE | 2020-04-18 11:09 | PCM.SURGPN ---
- General Info Date of Service: 04/18/20 POD#: 1 Functional Status: Reports: Pain Controlled - Review of Systems General: Reports: No Symptoms HEENT: Reports: No Symptoms Pulmonary: Reports: No Symptoms Cardiovascular: Reports: No Symptoms Gastrointestinal: Reports: No Symptoms Genitourinary: Reports: No Symptoms Musculoskeletal: Reports: No Symptoms Skin: Reports: No Symptoms Neurological: Reports: No Symptoms Psychiatric: Reports: No Symptoms - Patient Data Vitals - Most Recent: Last Vital Signs Temp 37.1 C 04/18/20 10:00 Pulse 78 04/18/20 08:00 Resp 04/18/20 08:00 BP 149/76 H 04/18/20 08:00 Pulse Ox 97 04/18/20 04:00 Weight - Most Recent: 87.362 kg I&O - Last 24 Hours: Intake & Output 04/17/20 04/18/20 04/18/20 22:59 06:59 14:59 Intake Total 1082 1503 Output Total 650 350 Balance 432 1153 Lab Results Last 24 Hrs: Laboratory Results - last 24 hr 04/15/20 04/17/20 04/17/20 Range/Units 11:31 11:32 13:25 WBC (4.0-11.0) K/uL RBC (4.30-5.90) M/uL Hgb (12.0-16.0) g/dL Hct (36.0-46.0) % MCV (80.0-98.0) fL MCH (27.0-32.0) pg MCHC (31.0-37.0) g/dL RDW Std Deviation (28.0-62.0) fl RDW Coeff of Harshil (11.0-15.0) % Plt Count (150-400) K/uL MPV (7.40-12.00) fL Neut % (Auto) (48.0-80.0) % Lymph % (Auto) (16.0-40.0) % [place] % (Auto) (0.0-15.0) % Eos % (Auto) (0.0-7.0) % Baso % (Auto) (0.0-1.5) % Neut # (Auto) (1.4-5.7) K/uL Lymph # (Auto) (0.6-2.4) K/uL [place] # (Auto) (0.0-0.8) K/uL Eos # (Auto) (0.0-0.7) K/uL Baso # (Auto) (0.0-0.1) K/uL Nucleated RBC % /100WBC Nucleated RBCs # K/uL Sodium (136-145) mmol/L Potassium (3.5-5.1) mmol/L Chloride (98-107) mmol/L Carbon Dioxide (21.0-32.0) mmol/L BUN (7.0-18.0) mg/dL Creatinine (0.6-1.0) mg/dL Est Cr Clr Drug Dosing mL/min Estimated GFR (MDRD) ml/min Glucose (74-106) mg/dL POC Glucose 241 H (60-110) mg/dL Serum Osmolality 326 H (275-295) mosm/kg Calcium (8.5-10.1) mg/dL Phosphorus (2.6-4.7) mg/dL Magnesium (1.8-2.4) mg/dL Vancomycin Trough 9.6 (5.0-10.0) ug/mL 04/17/20 04/17/20 04/18/20 Range/Units 17:01 21:03 05:36 WBC 7.68 (4.0-11.0) K/uL RBC 3.14 L (4.30-5.90) M/uL Hgb 9.1 L (12.0-16.0) g/dL Hct 26.5 L (36.0-46.0) % MCV 84.4 (80.0-98.0) fL MCH 29.0 (27.0-32.0) pg MCHC 34.3 (31.0-37.0) g/dL RDW Std Deviation 39.1 (28.0-62.0) fl RDW Coeff of Harshil 13 (11.0-15.0) % Plt Count 286 (150-400) K/uL MPV 8.90 (7.40-12.00) fL Neut % (Auto) 62.3 (48.0-80.0) % Lymph % (Auto) 25.7 (16.0-40.0) % [place] % (Auto) 10.5 (0.0-15.0) % Eos % (Auto) 1.2 (0.0-7.0) % Baso % (Auto) 0.3 (0.0-1.5) % Neut # (Auto) 4.8 (1.4-5.7) K/uL Lymph # (Auto) 2.0 (0.6-2.4) K/uL [place] # (Auto) 0.8 (0.0-0.8) K/uL Eos # (Auto) 0.1 (0.0-0.7) K/uL Baso # (Auto) 0.0 (0.0-0.1) K/uL Nucleated RBC % 0.0 /100WBC Nucleated RBCs # 0 K/uL Sodium (136-145) mmol/L Potassium (3.5-5.1) mmol/L Chloride (98-107) mmol/L Carbon Dioxide (21.0-32.0) mmol/L BUN (7.0-18.0) mg/dL Creatinine (0.6-1.0) mg/dL Est Cr Clr Drug Dosing mL/min Estimated GFR (MDRD) ml/min Glucose (74-106) mg/dL POC Glucose 295 H 226 H (60-110) mg/dL Serum Osmolality (275-295) mosm/kg Calcium (8.5-10.1) mg/dL Phosphorus (2.6-4.7) mg/dL Magnesium (1.8-2.4) mg/dL Vancomycin Trough (5.0-10.0) ug/mL 04/18/20 04/18/20 04/18/20 Range/Units 05:36 05:36 06:49 WBC (4.0-11.0) K/uL RBC (4.30-5.90) M/uL Hgb (12.0-16.0) g/dL Hct (36.0-46.0) % MCV (80.0-98.0) fL MCH (27.0-32.0) pg MCHC (31.0-37.0) g/dL RDW Std Deviation (28.0-62.0) fl RDW Coeff of Harshil (11.0-15.0) % Plt Count (150-400) K/uL MPV (7.40-12.00) fL Neut % (Auto) (48.0-80.0) % Lymph % (Auto) (16.0-40.0) % [place] % (Auto) (0.0-15.0) % Eos % (Auto) (0.0-7.0) % Baso % (Auto) (0.0-1.5) % Neut # (Auto) (1.4-5.7) K/uL Lymph # (Auto) (0.6-2.4) K/uL [place] # (Auto) (0.0-0.8) K/uL Eos # (Auto) (0.0-0.7) K/uL Baso # (Auto) (0.0-0.1) K/uL Nucleated RBC % /100WBC Nucleated RBCs # K/uL Sodium 139 (136-145) mmol/L Potassium 3.1 L (3.5-5.1) mmol/L Chloride 106 (98-107) mmol/L Carbon Dioxide 23.7 (21.0-32.0) mmol/L BUN 5 L (7.0-18.0) mg/dL Creatinine 0.4 L (0.6-1.0) mg/dL Est Cr Clr Drug Dosing 126.81 mL/min Estimated GFR (MDRD) > 60.0 ml/min Glucose 230 H (74-106) mg/dL POC Glucose 220 H (60-110) mg/dL Serum Osmolality (275-295) mosm/kg Calcium 7.5 L (8.5-10.1) mg/dL Phosphorus 2.6 (2.6-4.7) mg/dL Magnesium 1.7 L (1.8-2.4) mg/dL Vancomycin Trough (5.0-10.0) ug/mL Harpreet Results Last 24 Hrs: Microbiology 04/17/20 12:52 Gram Stain - Preliminary Labia - Left 04/15/20 11:28 Aerobic Blood Culture - Preliminary Blood - Venous - Lab Draw NO GROWTH AFTER 2 DAYS Anaerobic Blood Culture - Preliminary NO GROWTH AFTER 2 DAYS 04/15/20 11:12 Aerobic Blood Culture - Preliminary Blood - Venous NO GROWTH AFTER 2 DAYS Anaerobic Blood Culture - Preliminary NO GROWTH AFTER 2 DAYS 04/15/20 13:08 Urine Culture - Final Urine, Clean Catch MIXED MARCELO >100,000 CFU/ML Med Orders - Current: Current Medications Acetaminophen (Tylenol Extra Strength) 500 mg PO Q6H PRN PRN Reason: Fever Last Admin: 04/17/20 19:25 Dose: 500 mg Documented by: Pantoprazole Sodium 40 mg/ (Sodium Chloride) 10 mls @ 300 mls/hr IV DAILY [facility] Last Admin: 04/18/20 08:38 Dose: 300 mls/hr Documented by: Vancomycin HCl 1.25 gm/ Sodium (Chloride) 250 mls @ 166.667 mls/hr IV Q12H [facility] Last Admin: 04/18/20 00:48 Dose: 166.667 mls/hr Documented by: Ceftriaxone Sodium/Dextrose 1 (gm/ Premix) 50 mls @ 100 mls/hr IV Q24H [facility] Last Admin: 04/17/20 11:39 Dose: 100 mls/hr Documented by: Lactated Ringer's (Ringers, Lactated) 1,000 mls @ 75 mls/hr IV ASDIRECTED [facility] Last Infusion: 04/18/20 08:42 Dose: 75 mls/hr Documented by: Ibuprofen (Motrin) 400 mg PO Q4H PRN PRN Reason: Pain Last Admin: 04/18/20 10:18 Dose: 400 mg Documented by: Insulin Aspart (Novolog) 0 unit SUBCUT QIDACANDBED [facility]; Protocol Last Admin: 04/18/20 08:10 Dose: 6 unit Documented by: Insulin Aspart (Novolog) 3 unit SUBCUT TIDAC [facility] Insulin Glargine (Lantus Solostar) 14 units SUBCUT DAILY [facility] Morphine Sulfate (Morphine) 1 mg IVPUSH Q3H PRN PRN Reason: Pain Last Admin: 04/17/20 23:17 Dose: 1 mg Documented by: Ondansetron HCl (Zofran) 4 mg IVPUSH Q4H PRN PRN Reason: Nausea/Vomiting Last Admin: 04/17/20 05:55 Dose: 4 mg Documented by: Vancomycin HCl (Pharmacy To Dose - Vancomycin) 1 dose .XX ASDIRECTED [facility] Discontinued Medications Cefazolin Sodium (Ancef) Confirm Administered Dose 2 gm .ROUTE .STK-MED ONE Stop: 04/16/20 08:59 Chloroprocaine HCl (Clorotekal) Confirm Administered Dose 5 ml .ROUTE .STK-MED ONE Stop: 04/17/20 12:05 Fentanyl (Sublimaze) Confirm Administered Dose 100 mcg .ROUTE .STK-MED ONE Stop: 04/17/20 12:17 Glycopyrrolate (Robinul) Confirm Administered Dose 0.2 mg .ROUTE .STK-MED ONE Stop: 04/17/20 12:18 Hydromorphone HCl (Dilaudid) 1 mg IM ONETIME ONE Stop: 04/17/20 13:35 Last Admin: 04/17/20 13:40 Dose: 0.5 mg Documented by: Hydromorphone HCl (Dilaudid) Confirm Administered Dose 2 mg .ROUTE .STK-MED ONE Stop: 04/17/20 13:37 Last Admin: 04/18/20 08:58 Dose: Not Given Documented by: Sodium Chloride (Normal Saline) 1,000 mls @ 999 mls/hr IV BOLUS ONE Stop: 04/15/20 11:23 Last Admin: 04/15/20 10:37 Dose: 999 mls/hr Documented by: Ceftriaxone Sodium/Dextrose 2 (gm/ Premix) 50 mls @ 100 mls/hr IV ONETIME ONE Stop: 04/15/20 11:32 Last Admin: 04/15/20 11:14 Dose: 100 mls/hr Documented by: Lactated Ringer's (Ringers, Lactated) 1,000 mls @ 999 mls/hr IV ASDIRECTED AL[facility] Last Admin: 04/15/20 12:52 Dose: 999 mls/hr Documented by: Insulin Human Regular 100 unit (/ Sodium Chloride) 100 mls @ 6 mls/hr IV TITRATE [facility]; Protocol Last Titration: 04/16/20 18:30 Dose: 0 unit/hr, 0 mls/hr Documented by: Lactated Ringer's (Ringers, Lactated) 1,000 mls @ 999 mls/hr IV ASDIRECTED ALISA Last Admin: 04/15/20 15:15 Dose: 200 mls/hr Documented by: Vancomycin HCl 1.5 gm/ Premix 300 mls @ 150 mls/hr IV ONETIME ONE Stop: 04/15/20 14:29 Last Admin: 04/15/20 12:52 Dose: 150 mls/hr Documented by: Sodium Chloride (Normal Saline) 1,000 mls @ 200 mls/hr IV CONTINUOUS ONE Stop: 04/15/20 20:05 Last Admin: 04/15/20 20:14 Dose: 200 mls/hr Documented by: Ceftriaxone Sodium 1 gm/ (Sodium Chloride) 50 mls @ 100 mls/hr IV Q24H [facility] Dextrose/Sodium Chloride (Dextrose 5%-1/2 Ns) 1,000 mls @ 200 mls/hr IV ASDIRECTED [facility] Last Admin: 04/16/20 06:21 Dose: 200 mls/hr Documented by: Potassium Chloride 40 meq/ (Premix) 100 mls @ 25 mls/hr IV ONETIME ONE Stop: 04/16/20 09:09 Last Admin: 04/16/20 05:20 Dose: 25 mls/hr Documented by: Lactated Ringer's (Ringers, Lactated) 1,000 mls @ 500 mls/hr IV ASDIRECTED [facility] Last Admin: 04/16/20 12:58 Dose: 500 mls/hr Documented by: Potassium Phosphate 15 mmole/ (Sodium Chloride) 255 mls @ 63.75 mls/hr IV NOW ONE Stop: 04/16/20 13:29 Last Admin: 04/16/20 09:21 Dose: 63.75 mls/hr Documented by: Dextrose/Sodium Chloride (Dextrose 5%-1/2 Ns) 1,000 mls @ 150 mls/hr IV ASDIRECTED [facility] Last Admin: 04/16/20 11:45 Dose: 150 mls/hr Documented by: Lactated Ringer's (Ringers, Lactated) 1,000 mls @ 100 mls/hr IV ASDIRECTED [facility] Magnesium Sulfate 2 gm/ Premix 50 mls @ 50 mls/hr IV ONETIME ONE Stop: 04/17/20 08:25 Last Admin: 04/17/20 07:59 Dose: 50 mls/hr Documented by: Potassium Phosphate 27 mmole/ (Sodium Chloride) 509 mls @ 127.25 mls/hr IV ONETIME ONE Stop: 04/17/20 12:09 Last Admin: 04/17/20 08:24 Dose: 127.25 mls/hr Documented by: Magnesium Sulfate 2 gm/ Premix 50 mls @ 50 mls/hr IV ONETIME ONE Stop: 04/18/20 09:06 Last Admin: 04/18/20 08:42 Dose: 50 mls/hr Documented by: Insulin Glargine (Lantus Solostar) 10 units SUBCUT DAILY [facility] Last Admin: 04/17/20 09:29 Dose: 10 units Documented by: Insulin Glargine (Lantus Solostar) 12 units SUBCUT DAILY [facility] Last Admin: 04/18/20 08:17 Dose: 12 units Documented by: Insulin Human Regular (Novolin R) Confirm Administered Dose 1,000 unit .ROUTE .STK-MED ONE Stop: 04/15/20 12:47 Last Admin: 04/15/20 12:52 Dose: Not Given Documented by: Iopamidol (Isovue Multipack-370 (76%)) 80 ml IVPUSH ONETIME ONE Stop: 04/15/20 13:08 Last Admin: 04/15/20 13:08 Dose: 80 ml Documented by: Ketorolac Tromethamine (Toradol) Confirm Administered Dose 30 mg .ROUTE .STK-MED ONE Stop: 04/17/20 12:18 Lidocaine HCl (Xylocaine-Mpf 1%) Confirm Administered Dose 5 ml .ROUTE .STK-MED ONE Stop: 04/17/20 12:18 Midazolam HCl (Versed 1 Mg/Ml) Confirm Administered Dose 2 mg .ROUTE .STK-MED ONE Stop: 04/17/20 12:17 Ondansetron HCl (Zofran) 4 mg IVPUSH ONETIME ONE Stop: 04/15/20 10:24 Last Admin: 04/15/20 10:37 Dose: 4 mg Documented by: Ondansetron HCl (Zofran) 8 mg IVPUSH Q6H PRN PRN Reason: Nausea Last Admin: 04/16/20 20:57 Dose: 8 mg Documented by: Ondansetron HCl (Zofran) Confirm Administered Dose 4 mg .ROUTE .STK-MED ONE Stop: 04/17/20 12:18 Potassium Chloride (Klor-Con M20) 40 meq PO ONETIME ONE Stop: 04/18/20 08:05 Last Admin: 04/18/20 08:40 Dose: 40 meq Documented by: Potassium Chloride (Klor-Con M20) 20 meq PO ONETIME ONE Stop: 04/18/20 08:06 Last Admin: 04/18/20 08:41 Dose: 20 meq Documented by: Propofol (Diprivan 20 Ml) Confirm Administered Dose 200 mg .ROUTE .STK-MED ONE Stop: 04/17/20 12:17 Sodium Phosphate (Neutra-Phos) 250 mg PO ONETIME ONE Stop: 04/16/20 19:00 Last Admin: 04/16/20 20:36 Dose: Not Given Documented by: Sodium Phosphate (Neutra-Phos) 250 mg PO QID AL[facility] Last Admin: 04/17/20 05:01 Dose: 250 mg Documented by: Sodium Phosphate (Neutra-Phos) 250 mg PO ONETIME ONE Stop: 04/17/20 07:32 - Exam Wound/Incisions: Healing Well General: Alert, Oriented HEENT: Pupils Equal Neck: Supple Lungs: Clear to Auscultation, Normal Respiratory Effort Cardiovascular: Regular Rate, Regular Rhythm GI/Abdominal Exam: Normal Bowel Sounds, Soft, Non-Tender, No Organomegaly, No Distention, No Abnormal Bruit, No Mass, Pelvis Stable Extremities: Normal Inspection, Normal Range of Motion, Non-Tender, No Pedal Edema, Normal Capillary Refill Skin: Warm, Dry, Intact Neurological: No New Focal Deficit Psy/Mental Status: Alert, Normal Affect, Normal Mood Sepsis Event Note - Evaluation Sepsis Screening Result: No Definite Risk - Focused Exam Vital Signs: Vital Signs Temp Pulse Resp BP Pulse Ox 04/18/20 10:00 37.1 C 04/18/20 08:00 36.6 C 78 20 149/76 H 04/18/20 04:00 37.2 C 77 18 132/71 97 - Problem List Review Problem List Initiated/Reviewed/Updated: Yes - My Orders Last 24 Hours: Active Orders 24 hr Category Date Time Status Transfer Patient (Change bed) [ADT] Routine ADT 04/17/20 15:43 Ordered [employer] Diet [DIET] Diet 04/17/20 Lunch Active ANAEROBIC CULTURE Routine Lab 04/17/20 12:52 Received BASIC METABOLIC PANEL,BMP [CHEM] AM Lab 04/19/20 05:11 Ordered BASIC METABOLIC PANEL,BMP [CHEM] AM Lab 04/20/20 05:11 Ordered CULTURE WOUND [RM] Routine Lab 04/17/20 12:52 Results GRAM STAIN [RM] Routine Lab 04/17/20 12:52 Results MAGNESIUM [CHEM] AM Lab 04/19/20 05:11 Ordered MAGNESIUM [CHEM] AM Lab 04/20/20 05:11 Ordered PHOSPHORUS [CHEM] DAILY Lab 04/19/20 05:00 Ordered Acetaminophen [Tylenol Extra Strength] Med 04/17/20 13:44 Active 500 mg PO Q6H PRN Ibuprofen [Motrin] Med 04/17/20 13:45 Active 400 mg PO Q4H PRN Insulin Aspart [NovoLOG] Med 04/18/20 11:30 Active 3 unit SUBCUT TIDAC Insulin Glarg,Human.Rec.Analog [LantUS Solostar] Med 04/19/20 09:00 Active 14 units SUBCUT DAILY Medication Orders Acetaminophen (Tylenol Extra Strength) 500 mg PO Q6H PRN PRN Reason: Fever Last Admin: 04/17/20 19:25 Dose: 500 mg Documented by: GENA Pantoprazole Sodium 40 mg/ (Sodium Chloride) 10 mls @ 300 mls/hr IV DAILY [facility] Last Admin: 04/18/20 08:38 Dose: 300 mls/hr Documented by: Infusion: 04/17/20 08:04 Dose: 300 mls/hr Documented by: Admin: 04/17/20 08:02 Dose: 300 mls/hr Documented by: Infusion: 04/16/20 09:12 Dose: 300 mls/hr Documented by: Admin: 04/16/20 09:10 Dose: 300 mls/hr Documented by: Infusion: 04/15/20 17:19 Dose: 300 mls/hr Documented by: Admin: 04/15/20 17:17 Dose: 300 mls/hr Documented by: SUSAN Vancomycin HCl 1.25 gm/ Sodium (Chloride) 250 mls @ 166.667 mls/hr IV Q12H [facility] Last Admin: 04/18/20 00:48 Dose: 166.667 mls/hr Documented by: Infusion: 04/17/20 16:10 Dose: 166.667 mls/hr Documented by: Admin: 04/17/20 14:40 Dose: 166.667 mls/hr Documented by: Infusion: 04/17/20 02:24 Dose: 166.667 mls/hr Documented by: Admin: 04/17/20 00:54 Dose: 166.667 mls/hr Documented by: Infusion: 04/16/20 15:00 Dose: 166.667 mls/hr Documented by: Admin: 04/16/20 13:30 Dose: 166.667 mls/hr Documented by: Infusion: 04/16/20 02:04 Dose: 166.667 mls/hr Documented by: Admin: 04/16/20 00:34 Dose: 166.667 mls/hr Documented by: SUNG Ceftriaxone Sodium/Dextrose 1 (gm/ Premix) 50 mls @ 100 mls/hr IV Q24H [facility] Last Admin: 04/17/20 11:39 Dose: 100 mls/hr Documented by: Infusion: 04/16/20 13:30 Dose: 100 mls/hr Documented by: Admin: 04/16/20 13:00 Dose: 100 mls/hr Documented by: NEIL Lactated Ringer's (Ringers, Lactated) 1,000 mls @ 75 mls/hr IV ASDIRECTED [facility] Last Infusion: 04/18/20 08:42 Dose: 75 mls/hr Documented by: Admin: 04/18/20 04:58 Dose: 100 mls/hr Documented by: Infusion: 04/18/20 03:51 Dose: 100 mls/hr Documented by: Admin: 04/17/20 17:51 Dose: 100 mls/hr Documented by: Infusion: 04/17/20 10:54 Dose: 100 mls/hr Documented by: Admin: 04/17/20 00:54 Dose: 100 mls/hr Documented by: SUNG Ibuprofen (Motrin) 400 mg PO Q4H PRN PRN Reason: Pain Last Admin: 04/18/20 10:18 Dose: 400 mg Documented by: TEJAL Insulin Aspart (Novolog) 0 unit SUBCUT QIDACANDBED [facility]; Protocol Last Admin: 04/18/20 08:10 Dose: 6 unit Documented by: Admin: 04/17/20 21:06 Dose: 6 unit Documented by: Admin: 04/17/20 17:03 Dose: 6 unit Documented by: Admin: 04/17/20 11:37 Dose: 4 unit Documented by: Admin: 04/17/20 07:44 Dose: 8 unit Documented by: Admin: 04/16/20 21:00 Dose: 6 unit Documented by: SUNG Insulin Aspart (Novolog) 3 unit SUBCUT TIDAC [facility] Insulin Glargine (Lantus Solostar) 14 units SUBCUT DAILY [facility] Morphine Sulfate (Morphine) 1 mg IVPUSH Q3H PRN PRN Reason: Pain Last Admin: 04/17/20 23:17 Dose: 1 mg Documented by: Admin: 04/16/20 15:38 Dose: 1 mg Documented by: Admin: 04/16/20 09:41 Dose: 1 mg Documented by: Admin: 04/15/20 22:17 Dose: 1 mg Documented by: SUNG Ondansetron HCl (Zofran) 4 mg IVPUSH Q4H PRN PRN Reason: Nausea/Vomiting Last Admin: 04/17/20 05:55 Dose: 4 mg Documented by: SUNG Vancomycin HCl (Pharmacy To Dose - Vancomycin) 1 dose .XX ASDIRECTED ALISA - Assessment Assessment (Free Text/Narrative):: Status post I&D and debridement of left labial abscess the patient today afebrile ambulatory on regular diet her blood sugar and her infection is under control I'm planning to change dressing either this afternoon or tomorrow morning and we transitioned the patient for home health care
[2020-04-18] MEDS: cefTRIAXone 1 GM in Premix Bag 1 BAG IV SCH (11:48)
--- NOTE | 2020-04-18 12:47 | OR ---
SURGEON: Viral Santana MD DATE OF PROCEDURE: 04/17/2020 PREOPERATIVE DIAGNOSIS: Left labial abscess. POSTOPERATIVE DIAGNOSIS: Left labial abscess. OPERATION PERFORMED: I and D and debridement of left labial abscess. PRIMARY SURGEON: Viral Santana MD DISTRIBUTION FIELD TECHNICIAN: OR nadine. ANESTHESIA: General endotracheal intubation, Gris Jhon Forbes and Dr. Nieves. ESTIMATED BLOOD LOSS: 150 mL. COMPLICATIONS: None. INDICATIONS FOR SURGERY: This patient does have left labial abscess with a necrotic area on the top of the skin. [place] referred to the admit note. PROCEDURE IN DETAIL: The patient was brought to the OR, properly identified. After adequate level of anesthesia, the patient was placed in lithotomy position, prepped and draped in sterile fashion as usual. Then, using 11 blade, I and D of the abscess was done, and using the 11 blade again, the necrotic tissue from the labia is excised, and also using the Metzenbaum scissors, further debridement and the necrotic tissue was removed. Once this was done, then thorough irrigation of the operative field is done and then packing with iodoform packing is done. At this time, the procedure ended. The instrument and sponge count was correct. The patient tolerated the procedure well, went to recovery room in stable general condition. SEVERIANO / RAMAN /[id number]
[2020-04-19] MEDS: Ibuprofen 400 MG Tab PO PRN (04:44)
[2020-04-19 06:25] LABS: BLOOD UREA NITROGEN,BUN 3 mg/dL (7.0-18.0); CARBON DIOXIDE,CO2 26.5 mmol/L (21.0-32.0); CHLORIDE,CL 104 mmol/L (98-107); GLUCOSE RANDOM 233 mg/dL (74-106); POTASSIUM,K 3.9 mmol/L (3.5-5.1); SODIUM,NA 139 mmol/L (136-145)
[2020-04-19] MEDS: Insulin Aspart 100 Units/ML 3 ML Pen SUBCUT SCH ×7 (07:55→20:28)
[2020-04-19] MEDS: Pantoprazole 40 MG in Sodium Chloride 0.9% 10 ML IV SCH (08:59)
[2020-04-19] MEDS ORDERED: Insulin Glargine,Human Rec. Analog 100 Units/ML 3 ML Pen SUBCUT SCH (09:00)
[2020-04-19] MEDS: Docusate Sodium 100 MG Cap PO SCH ×2 (09:50→20:24)
[2020-04-19] MEDS: Polyethylene Glycol 3350 Powder 17 GM Packet PO SCH (09:50)
[2020-04-19] MEDS ORDERED: Hydrogen Peroxide 3% Top Soln 473 ML Bottle TOP ONE (10:10)
--- NOTE | 2020-04-19 11:59 | PCM.PN ---
- General Info Date of Service: 04/19/20 Admission Dx/Problem (Free Text): Admission Diagnosis/Problem Admission Diagnosis/Problem Diabetic ketoacidosis, labial abscess sepsis Subjective Update: Reports she is feeling ok today, feeling better but still has intermittent pain to labia. Denies chest pain or SOB. Eating and drinking well. Urinating well, but reports constipation. Functional Status: Reports: Pain Controlled, Tolerating Diet, Ambulating, Urinating - Review of Systems General: Reports: No Symptoms. Denies: Fever, Fatigue, Malaise Pulmonary: Reports: No Symptoms. Denies: Shortness of Breath Cardiovascular: Reports: No Symptoms. Denies: Chest Pain Gastrointestinal: Reports: Constipation. Denies: Nausea, Vomiting Genitourinary: Reports: No Symptoms. Denies: Dysuria, Frequency Musculoskeletal: Reports: No Symptoms Skin: Reports: Other (wound labia) Neurological: Reports: No Symptoms Psychiatric: Reports: No Symptoms - Patient Data Vitals - Most Recent: Last Vital Signs Temp 98.3 F 04/19/20 08:00 Pulse 75 04/19/20 08:00 Resp 18 04/19/20 08:00 BP 157/76 H 04/19/20 08:00 Pulse Ox 97 04/19/20 08:00 Weight - Most Recent: 87.362 kg I&O - Last 24 Hours: Intake & Output 04/18/20 04/19/20 04/19/20 22:59 06:59 14:59 Intake Total 985 1437 Output Total 800 Balance 985 637 Lab Results Last 24 Hours: Laboratory Results - last 24 hr 04/18/20 04/18/20 04/18/20 Range/Units 11:24 17:00 21:44 WBC (4.0-11.0) K/uL RBC (4.30-5.90) M/uL Hgb (12.0-16.0) g/dL Hct (36.0-46.0) % MCV (80.0-98.0) fL MCH (27.0-32.0) pg MCHC (31.0-37.0) g/dL RDW Std Deviation (28.0-62.0) fl RDW Coeff of Harshil (11.0-15.0) % Plt Count (150-400) K/uL MPV (7.40-12.00) fL Neut % (Auto) (48.0-80.0) % Lymph % (Auto) (16.0-40.0) % [place] % (Auto) (0.0-15.0) % Eos % (Auto) (0.0-7.0) % Baso % (Auto) (0.0-1.5) % Neut # (Auto) (1.4-5.7) K/uL Lymph # (Auto) (0.6-2.4) K/uL [place] # (Auto) (0.0-0.8) K/uL Eos # (Auto) (0.0-0.7) K/uL Baso # (Auto) (0.0-0.1) K/uL Nucleated RBC % /100WBC Nucleated RBCs # K/uL Sodium (136-145) mmol/L Potassium (3.5-5.1) mmol/L Chloride (98-107) mmol/L Carbon Dioxide (21.0-32.0) mmol/L BUN (7.0-18.0) mg/dL Creatinine (0.6-1.0) mg/dL Est Cr Clr Drug Dosing mL/min Estimated GFR (MDRD) ml/min Glucose (74-106) mg/dL POC Glucose 246 H 220 H 207 H (60-110) mg/dL Calcium (8.5-10.1) mg/dL Phosphorus (2.6-4.7) mg/dL Magnesium (1.8-2.4) mg/dL 04/19/20 04/19/20 04/19/20 Range/Units 05:58 05:58 05:58 WBC 9.12 (4.0-11.0) K/uL RBC 3.58 L (4.30-5.90) M/uL Hgb 10.3 L (12.0-16.0) g/dL Hct 30.7 L (36.0-46.0) % MCV 85.8 (80.0-98.0) fL MCH 28.8 (27.0-32.0) pg MCHC 33.6 (31.0-37.0) g/dL RDW Std Deviation 40.1 (28.0-62.0) fl RDW Coeff of Harshil 13 (11.0-15.0) % Plt Count 356 (150-400) K/uL MPV 9.20 (7.40-12.00) fL Neut % (Auto) 63.3 (48.0-80.0) % Lymph % (Auto) 27.0 (16.0-40.0) % [place] % (Auto) 7.9 (0.0-15.0) % Eos % (Auto) 1.6 (0.0-7.0) % Baso % (Auto) 0.2 (0.0-1.5) % Neut # (Auto) 5.8 H (1.4-5.7) K/uL Lymph # (Auto) 2.5 H (0.6-2.4) K/uL [place] # (Auto) 0.7 (0.0-0.8) K/uL Eos # (Auto) 0.2 (0.0-0.7) K/uL Baso # (Auto) 0.0 (0.0-0.1) K/uL Nucleated RBC % 0.0 /100WBC Nucleated RBCs # 0 K/uL Sodium 139 (136-145) mmol/L Potassium 3.9 (3.5-5.1) mmol/L Chloride 104 (98-107) mmol/L Carbon Dioxide 26.5 (21.0-32.0) mmol/L BUN 3 L (7.0-18.0) mg/dL Creatinine 0.4 L (0.6-1.0) mg/dL Est Cr Clr Drug Dosing 126.81 mL/min Estimated GFR (MDRD) > 60.0 ml/min Glucose 233 H (74-106) mg/dL POC Glucose (60-110) mg/dL Calcium 8.2 L (8.5-10.1) mg/dL Phosphorus 2.8 (2.6-4.7) mg/dL Magnesium 2.0 (1.8-2.4) mg/dL 04/19/20 Range/Units 06:48 WBC (4.0-11.0) K/uL RBC (4.30-5.90) M/uL Hgb (12.0-16.0) g/dL Hct (36.0-46.0) % MCV (80.0-98.0) fL MCH (27.0-32.0) pg MCHC (31.0-37.0) g/dL RDW Std Deviation (28.0-62.0) fl RDW Coeff of Harshil (11.0-15.0) % Plt Count (150-400) K/uL MPV (7.40-12.00) fL Neut % (Auto) (48.0-80.0) % Lymph % (Auto) (16.0-40.0) % [place] % (Auto) (0.0-15.0) % Eos % (Auto) (0.0-7.0) % Baso % (Auto) (0.0-1.5) % Neut # (Auto) (1.4-5.7) K/uL Lymph # (Auto) (0.6-2.4) K/uL [place] # (Auto) (0.0-0.8) K/uL Eos # (Auto) (0.0-0.7) K/uL Baso # (Auto) (0.0-0.1) K/uL Nucleated RBC % /100WBC Nucleated RBCs # K/uL Sodium (136-145) mmol/L Potassium (3.5-5.1) mmol/L Chloride (98-107) mmol/L Carbon Dioxide (21.0-32.0) mmol/L BUN (7.0-18.0) mg/dL Creatinine (0.6-1.0) mg/dL Est Cr Clr Drug Dosing mL/min Estimated GFR (MDRD) ml/min Glucose (74-106) mg/dL POC Glucose 220 H (60-110) mg/dL Calcium (8.5-10.1) mg/dL Phosphorus (2.6-4.7) mg/dL Magnesium (1.8-2.4) mg/dL Harpreet Results Last 24 Hours: Microbiology 04/15/20 11:28 Aerobic Blood Culture - Preliminary Blood - Venous - Lab Draw NO GROWTH AFTER 4 DAYS Anaerobic Blood Culture - Preliminary NO GROWTH AFTER 4 DAYS 04/15/20 11:12 Aerobic Blood Culture - Preliminary Blood - Venous NO GROWTH AFTER 4 DAYS Anaerobic Blood Culture - Preliminary NO GROWTH AFTER 4 DAYS 04/17/20 12:52 Gram Stain - Preliminary Labia - Left Wound Culture - Preliminary Med Orders - Current: Current Medications Acetaminophen (Tylenol Extra Strength) 500 mg PO Q6H PRN PRN Reason: Fever Last Admin: 04/17/20 19:25 Dose: 500 mg Documented by: Docusate Sodium (Colace) 100 mg PO BID [facility] Last Admin: 04/19/20 09:50 Dose: 100 mg Documented by: Pantoprazole Sodium 40 mg/ (Sodium Chloride) 10 mls @ 300 mls/hr IV DAILY [facility] Last Admin: 04/19/20 08:59 Dose: 300 mls/hr Documented by: Vancomycin HCl 1.25 gm/ Sodium (Chloride) 250 mls @ 166.667 mls/hr IV Q12H [facility] Last Admin: 04/19/20 01:03 Dose: 166.667 mls/hr Documented by: Ceftriaxone Sodium/Dextrose 1 (gm/ Premix) 50 mls @ 100 mls/hr IV Q24H [facility] Last Admin: 04/18/20 11:48 Dose: 100 mls/hr Documented by: Ibuprofen (Motrin) 400 mg PO Q4H PRN PRN Reason: Pain Last Admin: 04/19/20 04:44 Dose: 400 mg Documented by: Insulin Aspart (Novolog) 0 unit SUBCUT QIDACANDBED [facility]; Protocol Last Admin: 04/19/20 07:55 Dose: 6 unit Documented by: Insulin Aspart (Novolog) 3 unit SUBCUT TIDAC [facility] Last Admin: 04/19/20 07:57 Dose: 3 units Documented by: Insulin Glargine (Lantus Solostar) 14 units SUBCUT DAILY [facility] Last Admin: 04/19/20 09:01 Dose: 14 unit Documented by: Morphine Sulfate (Morphine) 1 mg IVPUSH Q3H PRN PRN Reason: Pain Last Admin: 04/17/20 23:17 Dose: 1 mg Documented by: Ondansetron HCl (Zofran) 4 mg IVPUSH Q4H PRN PRN Reason: Nausea/Vomiting Last Admin: 04/17/20 05:55 Dose: 4 mg Documented by: Polyethylene Glycol (Miralax) 17 gm PO DAILY [facility] Last Admin: 04/19/20 09:50 Dose: 17 gm Documented by: Vancomycin HCl (Pharmacy To Dose - Vancomycin) 1 dose .XX ASDIRECTED [facility] Discontinued Medications Cefazolin Sodium (Ancef) Confirm Administered Dose 2 gm .ROUTE .STK-MED ONE Stop: 04/16/20 08:59 Chloroprocaine HCl (Clorotekal) Confirm Administered Dose 5 ml .ROUTE .STK-MED ONE Stop: 04/17/20 12:05 Fentanyl (Sublimaze) Confirm Administered Dose 100 mcg .ROUTE .STK-MED ONE Stop: 04/17/20 12:17 Glycopyrrolate (Robinul) Confirm Administered Dose 0.2 mg .ROUTE .STK-MED ONE Stop: 04/17/20 12:18 Hydrogen Peroxide (Hydrogen Peroxide) 10 ml TOP ONETIME ONE Stop: 04/19/20 10:11 Hydromorphone HCl (Dilaudid) 1 mg IM ONETIME ONE Stop: 04/17/20 13:35 Last Admin: 04/17/20 13:40 Dose: 0.5 mg Documented by: Hydromorphone HCl (Dilaudid) Confirm Administered Dose 2 mg .ROUTE .STK-MED ONE Stop: 04/17/20 13:37 Last Admin: 04/18/20 08:58 Dose: Not Given Documented by: Sodium Chloride (Normal Saline) 1,000 mls @ 999 mls/hr IV BOLUS ONE Stop: 04/15/20 11:23 Last Admin: 04/15/20 10:37 Dose: 999 mls/hr Documented by: Ceftriaxone Sodium/Dextrose 2 (gm/ Premix) 50 mls @ 100 mls/hr IV ONETIME ONE Stop: 04/15/20 11:32 Last Admin: 04/15/20 11:14 Dose: 100 mls/hr Documented by: Lactated Ringer's (Ringers, Lactated) 1,000 mls @ 999 mls/hr IV ASDIRECTED [facility] Last Admin: 04/15/20 12:52 Dose: 999 mls/hr Documented by: Insulin Human Regular 100 unit (/ Sodium Chloride) 100 mls @ 6 mls/hr IV T ITRATE [facility]; Protocol Last Titration: 04/16/20 18:30 Dose: 0 unit/hr, 0 mls/hr Documented by: Lactated Ringer's (Ringers, Lactated) 1,000 mls @ 999 mls/hr IV ASDIRECTED [facility] Last Admin: 04/15/20 15:15 Dose: 200 mls/hr Documented by: Vancomycin HCl 1.5 gm/ Premix 300 mls @ 150 mls/hr IV ONETIME ONE Stop: 04/15/20 14:29 Last Admin: 04/15/20 12:52 Dose: 150 mls/hr Documented by: Sodium Chloride (Normal Saline) 1,000 mls @ 200 mls/hr IV CONTINUOUS ONE Stop: 04/15/20 20:05 Last Admin: 04/15/20 20:14 Dose: 200 mls/hr Documented by: Ceftriaxone Sodium 1 gm/ (Sodium Chloride) 50 mls @ 100 mls/hr IV Q24H [facility] Dextrose/Sodium Chloride (Dextrose 5%-1/2 Ns) 1,000 mls @ 200 mls/hr IV ASDIRECTED [facility] Last Admin: 04/16/20 06:21 Dose: 200 mls/hr Documented by: Potassium Chloride 40 meq/ (Premix) 100 mls @ 25 mls/hr IV ONETIME ONE Stop: 04/16/20 09:09 Last Admin: 04/16/20 05:20 Dose: 25 mls/hr Documented by: Lactated Ringer's (Ringers, Lactated) 1,000 mls @ 500 mls/hr IV ASDIRECTED [facility] Last Admin: 04/16/20 12:58 Dose: 500 mls/hr Documented by: Potassium Phosphate 15 mmole/ (Sodium Chloride) 255 mls @ 63.75 mls/hr IV NOW ONE Stop: 04/16/20 13:29 Last Admin: 04/16/20 09:21 Dose: 63.75 mls/hr Documented by: Dextrose/Sodium Chloride (Dextrose 5%-1/2 Ns) 1,000 mls @ 150 mls/hr IV ASDIRECTED [facility] Last Admin: 04/16/20 11:45 Dose: 150 mls/hr Documented by: Lactated Ringer's (Ringers, Lactated) 1,000 mls @ 100 mls/hr IV ASDIRECTED [facility] Lactated Ringer's (Ringers, Lactated) 1,000 mls @ 75 mls/hr IV ASDIRECTED [facility] Last Admin: 04/18/20 22:16 Dose: 75 mls/hr Documented by: Magnesium Sulfate 2 gm/ Premix 50 mls @ 50 mls/hr IV ONETIME ONE Stop: 04/17/20 08:25 Last Admin: 04/17/20 07:59 Dose: 50 mls/hr Documented by: Potassium Phosphate 27 mmole/ (Sodium Chloride) 509 mls @ 127.25 mls/hr IV ONETIME ONE Stop: 04/17/20 12:09 Last Admin: 04/17/20 08:24 Dose: 127.25 mls/hr Documented by: Magnesium Sulfate 2 gm/ Premix 50 mls @ 50 mls/hr IV ONETIME ONE Stop: 04/18/20 09:06 Last Admin: 04/18/20 08:42 Dose: 50 mls/hr Documented by: Insulin Glargine (Lantus Solostar) 10 units SUBCUT DAILY [facility] Last Admin: 04/17/20 09:29 Dose: 10 units Documented by: Insulin Glargine (Lantus Solostar) 12 units SUBCUT DAILY [facility] Last Admin: 04/18/20 08:17 Dose: 12 units Documented by: Insulin Human Regular (Novolin R) Confirm Administered Dose 1,000 unit .ROUTE .STK-MED ONE Stop: 04/15/20 12:47 Last Admin: 04/15/20 12:52 Dose: Not Given Documented by: Iopamidol (Isovue Multipack-370 (76%)) 80 ml IVPUSH ONETIME ONE Stop: 04/15/20 13:08 Last Admin: 04/15/20 13:08 Dose: 80 ml Documented by: Ketorolac Tromethamine (Toradol) Confirm Administered Dose 30 mg .ROUTE .STK-MED ONE Stop: 04/17/20 12:18 Lidocaine HCl (Xylocaine-Mpf 1%) Confirm Administered Dose 5 ml .ROUTE .STK-MED ONE Stop: 04/17/20 12:18 Midazolam HCl (Versed 1 Mg/Ml) Confirm Administered Dose 2 mg .ROUTE .STK-MED ONE Stop: 04/17/20 12:17 Ondansetron HCl (Zofran) 4 mg IVPUSH ONETIME ONE Stop: 04/15/20 10:24 Last Admin: 04/15/20 10:37 Dose: 4 mg Documented by: Ondansetron HCl (Zofran) 8 mg IVPUSH Q6H PRN PRN Reason: Nausea Last Admin: 04/16/20 20:57 Dose: 8 mg Documented by: Ondansetron HCl (Zofran) Confirm Administered Dose 4 mg .ROUTE .STK-MED ONE Stop: 04/17/20 12:18 Potassium Chloride (Klor-Con M20) 40 meq PO ONETIME ONE Stop: 04/18/20 08:05 Last Admin: 04/18/20 08:40 Dose: 40 meq Documented by: Potassium Chloride (Klor-Con M20) 20 meq PO ONETIME ONE Stop: 04/18/20 08:06 Last Admin: 04/18/20 08:41 Dose: 20 meq Documented by: Propofol (Diprivan 20 Ml) Confirm Administered Dose 200 mg .ROUTE .STK-MED ONE Stop: 04/17/20 12:17 Sodium Phosphate (Neutra-Phos) 250 mg PO ONETIME ONE Stop: 04/16/20 19:00 Last Admin: 04/16/20 20:36 Dose: Not Given Documented by: Sodium Phosphate (Neutra-Phos) 250 mg PO QID [facility] Last Admin: 04/17/20 05:01 Dose: 250 mg Documented by: Sodium Phosphate (Neutra-Phos) 250 mg PO ONETIME ONE Stop: 04/17/20 07:32 - Exam General: Alert, Oriented, Cooperative, No Acute Distress Lungs: Clear to Auscultation, Normal Respiratory Effort Cardiovascular: Regular Rate, Regular Rhythm GI/Abdominal Exam: Normal Bowel Sounds, Soft, Non-Tender, No Organomegaly, No Mass Extremities: Normal Inspection, Normal Range of Motion, Non-Tender, No Pedal Edema Wound/Incisions: Drainage (Labia, dressing intact), Erythema Improving Neurological: No New Focal Deficit Psy/Mental Status: Alert, Normal Affect, Normal Mood Sepsis Event Note - Evaluation Sepsis Screening Result: No Definite Risk - Focused Exam Vital Signs: Vital Signs Temp Pulse Resp BP Pulse Ox 04/19/20 08:00 98.3 F 75 18 157/76 H 97 04/19/20 04:10 96.5 F L 81 18 149/82 H 96 04/19/20 00:00 97.2 F 72 18 123/61 96 - Problem List & Annotations (1) Labial abscess SNOMED Code(s): 694480883 Code(s): N76.4 - ABSCESS OF VULVA Status: Acute Current Visit: Yes (2) Physical deconditioning SNOMED Code(s): 88875456334503 Code(s): R53.81 - OTHER MALAISE Status: Acute Current Visit: Yes (3) DM type 2 (diabetes mellitus, type 2) SNOMED Code(s): 19054160 Code(s): E11.9 - TYPE 2 DIABETES MELLITUS WITHOUT COMPLICATIONS Status: Acute Current Visit: Yes Qualifiers: Diabetes mellitus wireless architect insulin use: without wireless architect use Diabetes mellitus complication status: with ketoacidosis (4) Diabetic ketoacidosis SNOMED Code(s): 393887235, 103695370 Code(s): E11.10 - TYPE 2 DIABETES MELLITUS WITH KETOACIDOSIS WITHOUT COMA Status: Resolved Current Visit: Yes Qualifiers: Diabetes mellitus type: other specified (including KIT) Diabetes mellitus complication detail: without coma Qualified Code(s): E13.10 - Other specified diabetes mellitus with ketoacidosis without coma (5) Sepsis SNOMED Code(s): 41997359 Code(s): A41.9 - SEPSIS, UNSPECIFIED ORGANISM Status: Resolved Current Visit: Yes Qualifiers: Sepsis type: sepsis due to unspecified organism Sepsis acute organ dysfunction status: unspecified Qualified Code(s): A41.9 - Sepsis, unspecified organism - Problem List Review Problem List Initiated/Reviewed/Updated: Yes - My Orders Last 24 Hours: My Active Orders 04/18/20 11:30 Insulin Aspart [NovoLOG] 3 unit SUBCUT TIDAC 04/19/20 08:27 PT Evaluation and Treatment [CONS] Routine 04/19/20 09:00 Insulin Glarg,Human.Rec.Analog [LantUS Solostar] 14 units SUBCUT DAILY 04/19/20 09:30 Docusate Sodium [Colace] 100 mg PO BID polyethylene glycoL 3350 [MiraLAX] 17 gm PO DAILY - Plan Plan:: This 60 year old female admitted with DKA and sepsis with labia abscess 1. Labial abscess with surrounding cellulitis - Wound culture from surgery reporting Group B strep, HARPREET pending. - Continue Vancomycin and ceftriaxone for now. - POD#2 Dr Santana removed packing, to remain open. Sitz bath and dressing change daily or when soiled. - Plan for DC tomorrow when culture returns. Likely Clindamycin and Amoxicillin for PO antibiotics. - F/U with Dr Santana on Friday for dressing change and then Friday next week. She then plans on returning to [place]. 2. DM Type 2: - BS remains 200s. - Increase Lantus to 16 units - Novolog 3 units plus SSI with meals. - DM educator saw her this morning, made recommendations and will send home with samples along with insulin savings cards. 3. Constipation: - Schedule Colace - Encouraged ambulation - Gave Miralax. - Dulcolax if not able to have BM by this evening. 4. Deconditioning: - Consult PT for evaluation and treatment - recommended FWW and raise toilet seat due to weak upper body VTE prophylaxis: SCDs and ambulation Dispo: 1-2 days
[2020-04-19] MEDS: cefTRIAXone 1 GM in Premix Bag 1 BAG IV SCH (12:40)
[2020-04-19] MEDS ORDERED: Bisacodyl 10 MG Supp RECTAL PRN (13:59)
--- NOTE | 2020-04-19 15:18 | PCM.SURGPN ---
- General Info Date of Service: 04/19/20 POD#: 2 Functional Status: Reports: Pain Controlled - Review of Systems General: Reports: No Symptoms HEENT: Reports: No Symptoms Pulmonary: Reports: No Symptoms Cardiovascular: Reports: No Symptoms Gastrointestinal: Reports: No Symptoms Genitourinary: Reports: No Symptoms Musculoskeletal: Reports: No Symptoms Skin: Reports: No Symptoms Neurological: Reports: No Symptoms Psychiatric: Reports: No Symptoms - Patient Data Vitals - Most Recent: Last Vital Signs Temp 37.2 C 04/19/20 12:00 Pulse 83 04/19/20 12:00 Resp 18 04/19/20 12:00 BP 151/72 H 04/19/20 12:00 Pulse Ox 98 04/19/20 12:00 Weight - Most Recent: 87.362 kg I&O - Last 24 Hours: Intake & Output 04/19/20 04/19/20 04/19/20 06:59 14:59 22:59 Intake Total 1437 Output Total 800 Balance 637 Lab Results Last 24 Hrs: Laboratory Results - last 24 hr 04/18/20 04/18/20 04/19/20 Range/Units 17:00 21:44 05:58 WBC (4.0-11.0) K/uL RBC (4.30-5.90) M/uL Hgb (12.0-16.0) g/dL Hct (36.0-46.0) % MCV (80.0-98.0) fL MCH (27.0-32.0) pg MCHC (31.0-37.0) g/dL RDW Std Deviation (28.0-62.0) fl RDW Coeff of Harshil (11.0-15.0) % Plt Count (150-400) K/uL MPV (7.40-12.00) fL Neut % (Auto) (48.0-80.0) % Lymph % (Auto) (16.0-40.0) % [place] % (Auto) (0.0-15.0) % Eos % (Auto) (0.0-7.0) % Baso % (Auto) (0.0-1.5) % Neut # (Auto) (1.4-5.7) K/uL Lymph # (Auto) (0.6-2.4) K/uL [place] # (Auto) (0.0-0.8) K/uL Eos # (Auto) (0.0-0.7) K/uL Baso # (Auto) (0.0-0.1) K/uL Nucleated RBC % /100WBC Nucleated RBCs # K/uL Sodium (136-145) mmol/L Potassium (3.5-5.1) mmol/L Chloride (98-107) mmol/L Carbon Dioxide (21.0-32.0) mmol/L BUN (7.0-18.0) mg/dL Creatinine (0.6-1.0) mg/dL Est Cr Clr Drug Dosing mL/min Estimated GFR (MDRD) ml/min Glucose (74-106) mg/dL POC Glucose 220 H 207 H (60-110) mg/dL Calcium (8.5-10.1) mg/dL Phosphorus 2.8 (2.6-4.7) mg/dL Magnesium (1.8-2.4) mg/dL 04/19/20 04/19/20 04/19/20 Range/Units 05:58 05:58 06:48 WBC 9.12 (4.0-11.0) K/uL RBC 3.58 L (4.30-5.90) M/uL Hgb 10.3 L (12.0-16.0) g/dL Hct 30.7 L (36.0-46.0) % MCV 85.8 (80.0-98.0) fL MCH 28.8 (27.0-32.0) pg MCHC 33.6 (31.0-37.0) g/dL RDW Std Deviation 40.1 (28.0-62.0) fl RDW Coeff of Harshil 13 (11.0-15.0) % Plt Count 356 (150-400) K/uL MPV 9.20 (7.40-12.00) fL Neut % (Auto) 63.3 (48.0-80.0) % Lymph % (Auto) 27.0 (16.0-40.0) % [place] % (Auto) 7.9 (0.0-15.0) % Eos % (Auto) 1.6 (0.0-7.0) % Baso % (Auto) 0.2 (0.0-1.5) % Neut # (Auto) 5.8 H (1.4-5.7) K/uL Lymph # (Auto) 2.5 H (0.6-2.4) K/uL [place] # (Auto) 0.7 (0.0-0.8) K/uL Eos # (Auto) 0.2 (0.0-0.7) K/uL Baso # (Auto) 0.0 (0.0-0.1) K/uL Nucleated RBC % 0.0 /100WBC Nucleated RBCs # 0 K/uL Sodium 139 (136-145) mmol/L Potassium 3.9 (3.5-5.1) mmol/L Chloride 104 (98-107) mmol/L Carbon Dioxide 26.5 (21.0-32.0) mmol/L BUN 3 L (7.0-18.0) mg/dL Creatinine 0.4 L (0.6-1.0) mg/dL Est Cr Clr Drug Dosing 126.81 mL/min Estimated GFR (MDRD) > 60.0 ml/min Glucose 233 H (74-106) mg/dL POC Glucose 220 H (60-110) mg/dL Calcium 8.2 L (8.5-10.1) mg/dL Phosphorus (2.6-4.7) mg/dL Magnesium 2.0 (1.8-2.4) mg/dL 04/19/20 Range/Units 12:08 WBC (4.0-11.0) K/uL RBC (4.30-5.90) M/uL Hgb (12.0-16.0) g/dL Hct (36.0-46.0) % MCV (80.0-98.0) fL MCH (27.0-32.0) pg MCHC (31.0-37.0) g/dL RDW Std Deviation (28.0-62.0) fl RDW Coeff of Harshil (11.0-15.0) % Plt Count (150-400) K/uL MPV (7.40-12.00) fL Neut % (Auto) (48.0-80.0) % Lymph % (Auto) (16.0-40.0) % [place] % (Auto) (0.0-15.0) % Eos % (Auto) (0.0-7.0) % Baso % (Auto) (0.0-1.5) % Neut # (Auto) (1.4-5.7) K/uL Lymph # (Auto) (0.6-2.4) K/uL [place] # (Auto) (0.0-0.8) K/uL Eos # (Auto) (0.0-0.7) K/uL Baso # (Auto) (0.0-0.1) K/uL Nucleated RBC % /100WBC Nucleated RBCs # K/uL Sodium (136-145) mmol/L Potassium (3.5-5.1) mmol/L Chloride (98-107) mmol/L Carbon Dioxide (21.0-32.0) mmol/L BUN (7.0-18.0) mg/dL Creatinine (0.6-1.0) mg/dL Est Cr Clr Drug Dosing mL/min Estimated GFR (MDRD) ml/min Glucose (74-106) mg/dL POC Glucose 273 H (60-110) mg/dL Calcium (8.5-10.1) mg/dL Phosphorus (2.6-4.7) mg/dL Magnesium (1.8-2.4) mg/dL Harpreet Results Last 24 Hrs: Microbiology 04/15/20 11:28 Aerobic Blood Culture - Preliminary Blood - Venous - Lab Draw NO GROWTH AFTER 4 DAYS Anaerobic Blood Culture - Preliminary NO GROWTH AFTER 4 DAYS 04/15/20 11:12 Aerobic Blood Culture - Preliminary Blood - Venous NO GROWTH AFTER 4 DAYS Anaerobic Blood Culture - Preliminary NO GROWTH AFTER 4 DAYS 04/17/20 12:52 Gram Stain - Preliminary Labia - Left Wound Culture - Preliminary Med Orders - Current: Current Medications Acetaminophen (Tylenol Extra Strength) 500 mg PO Q6H PRN PRN Reason: Fever Last Admin: 04/17/20 19:25 Dose: 500 mg Documented by: Hydrocodone Bitart/Acetaminophen ([place] 325-5 Mg) 1 tab PO Q4H PRN PRN Reason: Pain Bisacodyl (Dulcolax) 10 mg RECTAL DAILY PRN PRN Reason: Constipation Docusate Sodium (Colace) 100 mg PO BID ALISA Last Admin: 04/19/20 09:50 Dose: 100 mg Documented by: Vancomycin HCl 1.25 gm/ Sodium (Chloride) 250 mls @ 166.667 mls/hr IV Q12H [facility] Last Admin: 04/19/20 14:02 Dose: 166.667 mls/hr Documented by: Ceftriaxone Sodium/Dextrose 1 (gm/ Premix) 50 mls @ 100 mls/hr IV Q24H [facility] Last Admin: 04/19/20 12:40 Dose: 100 mls/hr Documented by: Ibuprofen (Motrin) 400 mg PO Q4H PRN PRN Reason: Pain Last Admin: 04/19/20 04:44 Dose: 400 mg Documented by: Insulin Aspart (Novolog) 0 unit SUBCUT QIDACANDBED [facility]; Protocol Last Admin: 04/19/20 12:44 Dose: 9 unit Documented by: Insulin Aspart (Novolog) 3 unit SUBCUT TIDAC [facility] Last Admin: 04/19/20 12:45 Dose: 3 units Documented by: Insulin Glargine (Lantus Solostar) 16 units SUBCUT DAILY [facility] Ondansetron HCl (Zofran) 4 mg IVPUSH Q4H PRN PRN Reason: Nausea/Vomiting Last Admin: 04/17/20 05:55 Dose: 4 mg Documented by: Pantoprazole Sodium (Protonix) 40 mg PO ACBREAKFAST [facility] Polyethylene Glycol (Miralax) 17 gm PO DAILY [facility] Last Admin: 04/19/20 09:50 Dose: 17 gm Documented by: Vancomycin HCl (Pharmacy To Dose - Vancomycin) 1 dose .XX ASDIRECTED [facility] Discontinued Medications Cefazolin Sodium (Ancef) Confirm Administered Dose 2 gm .ROUTE .STK-MED ONE Stop: 04/16/20 08:59 Chloroprocaine HCl (Clorotekal) Confirm Administered Dose 5 ml .ROUTE .STK-MED ONE Stop: 04/17/20 12:05 Fentanyl (Sublimaze) Confirm Administered Dose 100 mcg .ROUTE .STK-MED ONE Stop: 04/17/20 12:17 Glycopyrrolate (Robinul) Confirm Administered Dose 0.2 mg .ROUTE .STK-MED ONE Stop: 04/17/20 12:18 Hydrogen Peroxide (Hydrogen Peroxide) 10 ml TOP ONETIME ONE Stop: 04/19/20 10:11 Last Admin: 04/19/20 12:41 Dose: 1 spray Documented by: Hydromorphone HCl (Dilaudid) 1 mg IM ONETIME ONE Stop: 04/17/20 13:35 Last Admin: 04/17/20 13:40 Dose: 0.5 mg Documented by: Hydromorphone HCl (Dilaudid) Confirm Administered Dose 2 mg .ROUTE .STK-MED ONE Stop: 04/17/20 13:37 Last Admin: 04/18/20 08:58 Dose: Not Given Documented by: Sodium Chloride (Normal Saline) 1,000 mls @ 999 mls/hr IV BOLUS ONE Stop: 04/15/20 11:23 Last Admin: 04/15/20 10:37 Dose: 999 mls/hr Documented by: Ceftriaxone Sodium/Dextrose 2 (gm/ Premix) 50 mls @ 100 mls/hr IV ONETIME ONE Stop: 04/15/20 11:32 Last Admin: 04/15/20 11:14 Dose: 100 mls/hr Documented by: Lactated Ringer's (Ringers, Lactated) 1,000 mls @ 999 mls/hr IV ASDIRECTED [facility] Last Admin: 04/15/20 12:52 Dose: 999 mls/hr Documented by: Insulin Human Regular 100 unit (/ Sodium Chloride) 100 mls @ 6 mls/hr IV TITRATE ALISA; Protocol Last Titration: 04/16/20 18:30 Dose: 0 unit/hr, 0 mls/hr Documented by: Lactated Ringer's (Ringers, Lactated) 1,000 mls @ 999 mls/hr IV ASDIRECTED [facility] Last Admin: 04/15/20 15:15 Dose: 200 mls/hr Documented by: Vancomycin HCl 1.5 gm/ Premix 300 mls @ 150 mls/hr IV ONETIME ONE Stop: 04/15/20 14:29 Last Admin: 04/15/20 12:52 Dose: 150 mls/hr Documented by: Sodium Chloride (Normal Saline) 1,000 mls @ 200 mls/hr IV CONTINUOUS ONE Stop: 04/15/20 20:05 Last Admin: 04/15/20 20:14 Dose: 200 mls/hr Documented by: Pantoprazole Sodium 40 mg/ (Sodium Chloride) 10 mls @ 300 mls/hr IV DAILY ALISA Last Admin: 04/19/20 08:59 Dose: 300 mls/hr Documented by: Ceftriaxone Sodium 1 gm/ (Sodium Chloride) 50 mls @ 100 mls/hr IV Q24H [facility] Dextrose/Sodium Chloride (Dextrose 5%-1/2 Ns) 1,000 mls @ 200 mls/hr IV ASDIRECTED [facility] Last Admin: 04/16/20 06:21 Dose: 200 mls/hr Documented by: Potassium Chloride 40 meq/ (Premix) 100 mls @ 25 mls/hr IV ONETIME ONE Stop: 04/16/20 09:09 Last Admin: 04/16/20 05:20 Dose: 25 mls/hr Documented by: Lactated Ringer's (Ringers, Lactated) 1,000 mls @ 500 mls/hr IV ASDIRECTED [facility] Last Admin: 04/16/20 12:58 Dose: 500 mls/hr Documented by: Potassium Phosphate 15 mmole/ (Sodium Chloride) 255 mls @ 63.75 mls/hr IV NOW ONE Stop: 04/16/20 13:29 Last Admin: 04/16/20 09:21 Dose: 63.75 mls/hr Documented by: Dextrose/Sodium Chloride (Dextrose 5%-1/2 Ns) 1,000 mls @ 150 mls/hr IV ASDIRECTED [facility] Last Admin: 04/16/20 11:45 Dose: 150 mls/hr Documented by: Lactated Ringer's (Ringers, Lactated) 1,000 mls @ 100 mls/hr IV ASDIRECTED [facility] Lactated Ringer's (Ringers, Lactated) 1,000 mls @ 75 mls/hr IV ASDIRECTED [facility] Last Admin: 04/18/20 22:16 Dose: 75 mls/hr Documented by: Magnesium Sulfate 2 gm/ Premix 50 mls @ 50 mls/hr IV ONETIME ONE Stop: 04/17/20 08:25 Last Admin: 04/17/20 07:59 Dose: 50 mls/hr Documented by: Potassium Phosphate 27 mmole/ (Sodium Chloride) 509 mls @ 127.25 mls/hr IV ONETIME ONE Stop: 04/17/20 12:09 Last Admin: 04/17/20 08:24 Dose: 127.25 mls/hr Documented by: Magnesium Sulfate 2 gm/ Premix 50 mls @ 50 mls/hr IV ONETIME ONE Stop: 04/18/20 09:06 Last Admin: 04/18/20 08:42 Dose: 50 mls/hr Documented by: Insulin Glargine (Lantus Solostar) 10 units SUBCUT DAILY [facility] Last Admin: 04/17/20 09:29 Dose: 10 units Documented by: Insulin Glargine (Lantus Solostar) 12 units SUBCUT DAILY [facility] Last Admin: 04/18/20 08:17 Dose: 12 units Documented by: Insulin Glargine (Lantus Solostar) 14 units SUBCUT DAILY [facility] Last Admin: 04/19/20 09:01 Dose: 14 unit Documented by: Insulin Human Regular (Novolin R) Confirm Administered Dose 1,000 unit .ROUTE .STK-MED ONE Stop: 04/15/20 12:47 Last Admin: 04/15/20 12:52 Dose: Not Given Documented by: Iopamidol (Isovue Multipack-370 (76%)) 80 ml IVPUSH ONETIME ONE Stop: 04/15/20 13:08 Last Admin: 04/15/20 13:08 Dose: 80 ml Documented by: Ketorolac Tromethamine (Toradol) Confirm Administered Dose 30 mg .ROUTE .STK-MED ONE Stop: 04/17/20 12:18 Lidocaine HCl (Xylocaine-Mpf 1%) Confirm Administered Dose 5 ml .ROUTE .STK-MED ONE Stop: 04/17/20 12:18 Midazolam HCl (Versed 1 Mg/Ml) Confirm Administered Dose 2 mg .ROUTE .STK-MED ONE Stop: 04/17/20 12:17 Morphine Sulfate (Morphine) 1 mg IVPUSH Q3H PRN PRN Reason: Pain Last Admin: 04/17/20 23:17 Dose: 1 mg Documented by: Ondansetron HCl (Zofran) 4 mg IVPUSH ONETIME ONE Stop: 04/15/20 10:24 Last Admin: 04/15/20 10:37 Dose: 4 mg Documented by: Ondansetron HCl (Zofran) 8 mg IVPUSH Q6H PRN PRN Reason: Nausea Last Admin: 04/16/20 20:57 Dose: 8 mg Documented by: Ondansetron HCl (Zofran) Confirm Administered Dose 4 mg .ROUTE .STK-MED ONE Stop: 04/17/20 12:18 Potassium Chloride (Klor-Con M20) 40 meq PO ONETIME ONE Stop: 04/18/20 08:05 Last Admin: 04/18/20 08:40 Dose: 40 meq Documented by: Potassium Chloride (Klor-Con M20) 20 meq PO ONETIME ONE Stop: 04/18/20 08:06 Last Admin: 04/18/20 08:41 Dose: 20 meq Documented by: Propofol (Diprivan 20 Ml) Confirm Administered Dose 200 mg .ROUTE .STK-MED ONE Stop: 04/17/20 12:17 Sodium Phosphate (Neutra-Phos) 250 mg PO ONETIME ONE Stop: 04/16/20 19:00 Last Admin: 04/16/20 20:36 Dose: Not Given Documented by: Sodium Phosphate (Neutra-Phos) 250 mg PO QID ALISA Last Admin: 04/17/20 05:01 Dose: 250 mg Documented by: Sodium Phosphate (Neutra-Phos) 250 mg PO ONETIME ONE Stop: 04/17/20 07:32 - Exam Wound/Incisions: Healing Well General: Alert, Oriented HEENT: Pupils Equal Neck: Supple Lungs: Clear to Auscultation, Normal Respiratory Effort Cardiovascular: Regular Rate, Regular Rhythm GI/Abdominal Exam: Normal Bowel Sounds, Soft, Non-Tender, No Organomegaly, No Distention, No Abnormal Bruit, No Mass, Pelvis Stable Extremities: Normal Inspection, Normal Range of Motion, Non-Tender, No Pedal Edema, Normal Capillary Refill Skin: Warm, Dry, Intact Neurological: No New Focal Deficit Psy/Mental Status: Alert, Normal Affect, Normal Mood Sepsis Event Note - Evaluation Sepsis Screening Result: No Definite Risk - Focused Exam Vital Signs: Vital Signs Temp Pulse Resp BP Pulse Ox 04/19/20 12:00 37.2 C 83 18 151/72 H 98 04/19/20 08:00 36.8 C 75 18 157/76 H 97 04/19/20 04:10 35.8 C L 81 18 149/82 H 96 - Problem List Review Problem List Initiated/Reviewed/Updated: Yes - My Orders Last 24 Hours: Active Orders 24 hr Category Date Time Status PT Evaluation and Treatment [CONS] Routine Cons 04/19/20 08:27 Active BASIC METABOLIC PANEL,BMP [CHEM] AM Lab 04/20/20 05:11 Ordered CBC WITH AUTO DIFF [HEME] AM Lab 04/20/20 05:11 Ordered MAGNESIUM [CHEM] AM Lab 04/20/20 05:11 Ordered VANCOMYCIN TROUGH [CHEM] Routine Lab 04/19/20 14:28 Received Acetaminophen/HYDROcodone [[place] 325-5 MG] Med 04/19/20 13:58 Active 1 tab PO Q4H PRN Docusate Sodium [Colace] Med 04/19/20 09:30 Active 100 mg PO BID Insulin Glarg,Human.Rec.Analog [LantUS Solostar] Med 04/20/20 09:00 Active 16 units SUBCUT DAILY Pantoprazole [ProTONIX] Med 04/20/20 07:30 Active 40 mg PO ACBREAKFAST bisacodyL [Dulcolax] Med 04/19/20 13:59 Active 10 mg RECTAL DAILY PRN polyethylene glycoL 3350 [MiraLAX] Med 04/19/20 09:30 Active 17 gm PO DAILY Medication Orders Acetaminophen (Tylenol Extra Strength) 500 mg PO Q6H PRN PRN Reason: Fever Last Admin: 04/17/20 19:25 Dose: 500 mg Documented by: GENA Hydrocodone Bitart/Acetaminophen ([place] 325-5 Mg) 1 tab PO Q4H PRN PRN Reason: Pain Bisacodyl (Dulcolax) 10 mg RECTAL DAILY PRN PRN Reason: Constipation Docusate Sodium (Colace) 100 mg PO BID [facility] Last Admin: 04/19/20 09:50 Dose: 100 mg Documented by: DAWN Vancomycin HCl 1.25 gm/ Sodium (Chloride) 250 mls @ 166.667 mls/hr IV Q12H [facility] Last Admin: 04/19/20 14:02 Dose: 166.667 mls/hr Documented by: Infusion: 04/19/20 02:33 Dose: 166.667 mls/hr Documented by: Admin: 04/19/20 01:03 Dose: 166.667 mls/hr Documented by: Infusion: 04/18/20 14:06 Dose: 166.667 mls/hr Documented by: Admin: 04/18/20 12:36 Dose: 166.667 mls/hr Documented by: Infusion: 04/18/20 02:18 Dose: 166.667 mls/hr Documented by: Admin: 04/18/20 00:48 Dose: 166.667 mls/hr Documented by: Infusion: 04/17/20 16:10 Dose: 166.667 mls/hr Documented by: Admin: 04/17/20 14:40 Dose: 166.667 mls/hr Documented by: GURDEEPIGLBARBARA Infusion: 04/17/20 02:24 Dose: 166.667 mls/hr Documented by: Admin: 04/17/20 00:54 Dose: 166.667 mls/hr Documented by: Infusion: 04/16/20 15:00 Dose: 166.667 mls/hr Documented by: Admin: 04/16/20 13:30 Dose: 166.667 mls/hr Documented by: Infusion: 04/16/20 02:04 Dose: 166.667 mls/hr Documented by: Admin: 04/16/20 00:34 Dose: 166.667 mls/hr Documented by: SUNG Ceftriaxone Sodium/Dextrose 1 (gm/ Premix) 50 mls @ 100 mls/hr IV Q24H ALISA Last Admin: 04/19/20 12:40 Dose: 100 mls/hr Documented by: Infusion: 04/18/20 12:18 Dose: 100 mls/hr Documented by: Admin: 04/18/20 11:48 Dose: 100 mls/hr Documented by: Infusion: 04/17/20 12:09 Dose: 100 mls/hr Documented by: Admin: 04/17/20 11:39 Dose: 100 mls/hr Documented by: GURDEEPIGLBARBARA Infusion: 04/16/20 13:30 Dose: 100 mls/hr Documented by: GURDEEPIGLBARBARA Admin: 04/16/20 13:00 Dose: 100 mls/hr Documented by: NEIL Ibuprofen (Motrin) 400 mg PO Q4H PRN PRN Reason: Pain Last Admin: 04/19/20 04:44 Dose: 400 mg Documented by: Admin: 04/18/20 10:18 Dose: 400 mg Documented by: TEJAL Insulin Aspart (Novolog) 0 unit SUBCUT QIDACANDBED [facility]; Protocol Last Admin: 04/19/20 12:44 Dose: 9 unit Documented by: Admin: 04/19/20 07:55 Dose: 6 unit Documented by: Admin: 04/18/20 21:45 Dose: 6 unit Documented by: Admin: 04/18/20 17:50 Dose: 6 unit Documented by: Admin: 04/18/20 12:34 Dose: 6 unit Documented by: Admin: 04/18/20 08:10 Dose: 6 unit Documented by: Admin: 04/17/20 21:06 Dose: 6 unit Documented by: Admin: 04/17/20 17:03 Dose: 6 unit Documented by: Admin: 04/17/20 11:37 Dose: 4 unit Documented by: Admin: 04/17/20 07:44 Dose: 8 unit Documented by: Admin: 04/16/20 21:00 Dose: 6 unit Documented by: SUNG Insulin Aspart (Novolog) 3 unit SUBCUT TIDAC [facility] Last Admin: 04/19/20 12:45 Dose: 3 units Documented by: Admin: 04/19/20 07:57 Dose: 3 units Documented by: Admin: 04/18/20 17:51 Dose: 3 units Documented by: Admin: 04/18/20 12:35 Dose: 3 units Documented by: TEJAL Insulin Glargine (Lantus Solostar) 16 units SUBCUT DAILY [facility] Ondansetron HCl (Zofran) 4 mg IVPUSH Q4H PRN PRN Reason: Nausea/Vomiting Last Admin: 04/17/20 05:55 Dose: 4 mg Documented by: SUNG Pantoprazole Sodium (Protonix) 40 mg PO ACBREAKFAST [facility] Polyethylene Glycol (Miralax) 17 gm PO DAILY [facility] Last Admin: 04/19/20 09:50 Dose: 17 gm Documented by: DAWN Vancomycin HCl (Pharmacy To Dose - Vancomycin) 1 dose .XX ASDIRECTED ALISA - Assessment Assessment (Free Text/Narrative):: Change of dressing is done today the incision looked fine the age of the incision is not necrotic however due to washing the area with the hydrogen peroxide and redressing is done. It is okay for the patient to be discharged home provided that she canhelp of an fleet administrative assistant to change her dressing at home. Strongly recommend for her to do sitz bath when necessary
[2020-04-19] MEDS: Acetaminophen/HYDROcodone 325-5 MG Tab PO PRN (23:28)
[2020-04-20 06:20] LABS: BLOOD UREA NITROGEN,BUN 2 mg/dL (7.0-18.0); CARBON DIOXIDE,CO2 26.3 mmol/L (21.0-32.0); CHLORIDE,CL 105 mmol/L (98-107); GLUCOSE RANDOM 197 mg/dL (74-106); POTASSIUM,K 3.7 mmol/L (3.5-5.1); SODIUM,NA 139 mmol/L (136-145)
[2020-04-20] MEDS: Insulin Aspart 100 Units/ML 3 ML Pen SUBCUT SCH ×3 (07:27→11:36)
[2020-04-20] MEDS ORDERED: Pantoprazole 40 MG Tab.CR PO SCH (07:30)
[2020-04-20] MEDS: Acetaminophen/HYDROcodone 325-5 MG Tab PO PRN (07:42)
[2020-04-20] MEDS ORDERED: Amoxicillin 500 MG Cap PO ONE (08:35)
[2020-04-20] MEDS ORDERED: Clindamycin HCl 150 MG Cap PO ONE (08:36)
[2020-04-20] MEDS: Docusate Sodium 100 MG Cap PO SCH (08:54)
[2020-04-20] MEDS: Polyethylene Glycol 3350 Powder 17 GM Packet PO SCH (08:57)
[2020-04-20] MEDS ORDERED: Insulin Glargine,Human Rec. Analog 100 Units/ML 3 ML Pen SUBCUT SCH (09:00)
--- NOTE | 2020-04-20 09:05 | PCM.DCSUM1 ---
Discharge Summary - Hospital Course Brief History: Patient is a 60-year-old female with significant past medical history of type 2 diabetes, uncontrolled and non complaint with treatment presented with increasing nausea and vomiting x4 to 5 days and worsening infection over her labia. Was placed on doxycycline provided from an outpatient facility 7 days prior and completed the course however noticed that the drainage from the labia increasing and nausea and vomiting had worsened. Denies any fevers or chills but has noted no bowel movements x 3 to 4 days. Diabetes: Mentions being diagnosed with diabetes many years earlier and had made an effort to lose weight; succeeded in losing 100 pounds and believes her diabetes had been under control. Denies any recent increase in urination, hunger or polyuria. ED course: Anion gap noted of 30; insulin drip started with concerns for diabetic ketoacidosis. 2 L of fluid provided;. Leukocytosis in setting of labial abscess as confirmed on CT pelvis: Patient started on vancomycin and ceftriaxone;. Lactic acid 1.5; patient afebrile; with nominal blood pressure. Consultation to OB provider from ED placed for abscess formation in left labia majora. Bedside; patient complaining of increasing thirst and mild nausea; states abdominal pain is improving but is complaining of pain in her groin has not changed. Diagnosis: Stroke: No - Discharge Data Discharge Date: 04/20/20 Discharge Disposition: Home, Self-Care 01 Condition: Stable - Referral to Home Health Primary Care Physician: PCP Not In Area - Discharge Diagnosis/Problem(s) (1) Labial abscess SNOMED Code(s): 961098775 ICD Code: N76.4 - ABSCESS OF VULVA Status: Acute Current Visit: Yes (2) Physical deconditioning SNOMED Code(s): 92329110424708 ICD Code: R53.81 - OTHER MALAISE Status: Acute Current Visit: Yes (3) DM type 2 (diabetes mellitus, type 2) SNOMED Code(s): 76387261 ICD Code: E11.9 - TYPE 2 DIABETES MELLITUS WITHOUT COMPLICATIONS Status: Acute Current Visit: Yes Qualifiers: Diabetes mellitus intermission coordinator insulin use: without retirement use Diabetes mellitus complication status: with ketoacidosis (4) Diabetic ketoacidosis SNOMED Code(s): 995219553, 578970861 ICD Code: E11.10 - TYPE 2 DIABETES MELLITUS WITH KETOACIDOSIS WITHOUT COMA Status: Resolved Current Visit: Yes Qualifiers: Diabetes mellitus type: other specified (including KIT) Diabetes mellitus complication detail: without coma Qualified Code(s): E13.10 - Other specified diabetes mellitus with ketoacidosis without coma (5) Sepsis SNOMED Code(s): 78298037 ICD Code: A41.9 - SEPSIS, UNSPECIFIED ORGANISM Status: Resolved Current Visit: Yes Qualifiers: Sepsis type: sepsis due to unspecified organism Sepsis acute organ dysfunction status: unspecified Qualified Code(s): A41.9 - Sepsis, unspecified organism - Patient Summary/Data Consults: Consultations 04/15/20 12:09 Consult to Physician [CONS] Stat 04/15/20 17:58 Consult to Diabetic Nurse Specialist [CONS] Routine 04/19/20 08:27 PT Evaluation and Treatment [CONS] Routine Hospital Course: Admitting Diagnoses DKA Sepsis Labial abscess Uncontrolled Dm Type 2 Discharge Diagnoses: DKA- resolved Sepsis- resolved Labial abscess Uncontrolled DM Type 2 Patient was admitted secondary to sepsis with DKA and labial abscess. She was transferred to the ICU on insulin drip as well as vancomycin and Rocephin. Dr. Santana, [employer] was consulted for I&D of abscess. She was taken to the OR on April 16. She was continued on insulin drip as well as vancomycin and ceftriaxone. She was weaned off of the insulin drip and placed on sliding scale insulin along with basal insulin daily. Blood cultures were obtained on admission and have remained negative during stay. Wound culture was obtained in the OR which has grown group B strep sensitive to penicillin. She has been stable with no leukocytosis and has remained afebrile. Dressing change was done April [address] Santana. She has been counseled on appropriate dressing c hanges at home along with sitz bath or moustapha-bottle cares. She will be discharged on clindamycin 300 mg 3 times daily as well as amoxicillin 500 mg 3 times daily for 5 more days to complete a 10-day course of antibiotics. She will do daily dressing changes at home as well as appointments have been scheduled for dressing change in Dr. Santana's clinic and follow-up will be April [address] Santana's clinic as well. I will also send prescription for Llano 5/325 mg 1 tab every 6 hours as needed pain #15 tabs no refill. In regards to her diabetes she was steadily increased on basal insulin to 16 units daily. She has been given 3 units plus sliding scale NovoLog for each meal. She was visited by the medical educator who counseled her on appropriate use of glucose meter, diet, insulin administration. She will be sent home with Toujeo 16 units subcutaneously daily along with Admelog 4 units with each meal. These were electronically [facility] to [facility] today along with written prescription as she will be returning to [place] and may not fill these prescriptions in [place]. She was counseled on the importance of being compliant with diabetic care as her A1c is 12%. She is at high risk for infection along with many other complications from diabetes. She verbalized understanding. She will be discharged home today with appropriate follow-up. She is to return to the ER or clinic if concerns should arise. Prescription for toilet riser and FWW were provider after PT evaluation. - Patient Instructions Diet: Diabetic Diet Activity: As Tolerated Driving: Do Not Drive Showering/Bathing: May Shower Wound/Incision Care: Change Dressing Daily (Place gauze that has been slightly dampened with sterile saline into wound, then cover with ABD. Keep in place with disposable underwear. Change daily. after removing old dressing, you can consider sitz bath or using moustapha bottles with warm clean tap water.) Notify Provider of: Fever, Increased Pain, Swelling and Redness, Drainage, Nausea and/or Vomiting Other/Special Instructions: Check blood sugars four times a day, before meals and at bedtime. Monitor for signs of low blood sugar. Insulin pens from hospital will be sent home for you to use. Long acting- once daily injection will be Lantus and Basaglar pens. Short acting- with meals will be Novolog and Humalog. - Discharge Plan *PRESCRIPTION DRUG MONITORING PROGRAM REVIEWED*: Not Applicable *COPY OF PRESCRIPTION DRUG MONITORING REPORT IN PATIENT LISA: Not Applicable Prescriptions/Med Rec: Pen Needle, Diabetic [1St Tier Unifine Pentips Plus] 1 each MC 5XDAY #1 box Insulin Lispro [Admelog Solostar] 4 unit SQ TIDAC #1 box Amoxicillin 500 mg PO TID #15 tablet clindamycin HCL [Clindamycin HCl] 300 mg PO TID #15 capsule Lancets 1 each MC QIDACANDBED #1 box Acetaminophen/HYDROcodone [Llano 325-5 MG] 1 tab PO Q6H PRN #15 tablet PRN Reason: Pain Blood Sugar Diagnostic [Test Strips] 1 each QIDACANDBED #1 box Insulin Glargine,Hum.Rec.Anlog [Toujeo Solostar] 16 unit SQ DAILY #1 box Home Medications: Home Meds Acetaminophen/HYDROcodone [Llano 325-5 MG] 1 tab PO Q6H PRN #15 tablet 04/20/20 [Rx] Amoxicillin 500 mg PO TID #15 tablet 04/20/20 [Rx] Blood Sugar Diagnostic [Test Strips] 1 each QIDACANDBED #1 box 04/20/20 [Rx] Docusate Sodium [Colace] 100 mg PO BID cap 04/20/20 [Rx] Insulin Glargine,Hum.Rec.Anlog [Toujeo Solostar] 16 unit SQ DAILY #1 box 04/20/20 [Rx] Insulin Lispro [Admelog Solostar] 4 unit SQ TIDAC #1 box 04/20/20 [Rx] Lancets 1 each QIDACANDBED #1 box 04/20/20 [Rx] Pen Needle, Diabetic [1St Tier Unifine Pentips Plus] 1 each 5XDAY #1 box 04/20/20 [Rx] clindamycin HCL [Clindamycin HCl] 300 mg PO TID #15 capsule 04/20/20 [Rx] Oxygen Therapy Mode: Room Air Patient Handouts: Acetaminophen; Hydrocodone tablets or capsules, Amoxicillin; Clavulanic Acid tablets, Skin Abscess, Amoxicillin capsules or tablets, Hypoglycemia, Clindamycin capsules, How to Take a Sitz Bath, Diabetic Ketoacidosis, Incision and Drainage, Care After, Type 2 Diabetes Mellitus, Self Care, Adult, Voti-ap-Wqho, How to Use a Walker, How to Change Your Wound Dressing, [id number]-[id number], Preventing Diabetes Mellitus Complications, Insulin Glargine injection, Type 2 Diabetes Mellitus, Diagnosis, Adult, Ornf-hf-Ncih, Insulin Lispro injection, Blood Glucose Monitoring, Adult, Preventing Diabetic Ketoacidosis Forms: ED Department Discharge Referrals: Anahy Burns RN [Registered Nurse] - 04/25/20 10:00 am Viral Santana MD [Physician] - 04/25/20 9:30 am (Please arrive 15mins early. Bring ID, isurance info and own mask.) Katy Lindsay NP [Nurse Practitioner] - 04/26/20 11:00 am (Please arrive 15 minutes early with your identification, insurance card and your own facemask.) - Discharge Summary/Plan Comment DC Time >30 min.: No - Patient Data Vitals - Most Recent: Last Vital Signs Temp 98.2 F 04/20/20 07:05 Pulse 75 04/20/20 07:05 Resp 18 04/20/20 07:05 BP 136/68 04/20/20 07:05 Pulse Ox 94 L 04/20/20 07:05 Weight - Most Recent: 87.362 kg I&O - Last 24 hours: Intake & Output 04/19/20 04/20/20 04/20/20 22:59 06:59 14:59 Intake Total 1533 600 Output Total 550 800 Balance 983 -200 Lab Results - Last 24 hrs: Laboratory Results - last 24 hr 04/19/20 04/19/20 04/19/20 Range/Units 12:08 14:28 17:10 WBC (4.0-11.0) K/uL RBC (4.30-5.90) M/uL Hgb (12.0-16.0) g/dL Hct (36.0-46.0) % MCV (80.0-98.0) fL MCH (27.0-32.0) pg MCHC (31.0-37.0) g/dL RDW Std Deviation (28.0-62.0) fl RDW Coeff of Harshil (11.0-15.0) % Plt Count (150-400) K/uL MPV (7.40-12.00) fL Neut % (Auto) (48.0-80.0) % Lymph % (Auto) (16.0-40.0) % Windham % (Auto) (0.0-15.0) % Eos % (Auto) (0.0-7.0) % Baso % (Auto) (0.0-1.5) % Neut # (Auto) (1.4-5.7) K/uL Lymph # (Auto) (0.6-2.4) K/uL Windham # (Auto) (0.0-0.8) K/uL Eos # (Auto) (0.0-0.7) K/uL Baso # (Auto) (0.0-0.1) K/uL Nucleated RBC % /100WBC Nucleated RBCs # K/uL Sodium (136-145) mmol/L Potassium (3.5-5.1) mmol/L Chloride (98-107) mmol/L Carbon Dioxide (21.0-32.0) mmol/L BUN (7.0-18.0) mg/dL Creatinine (0.6-1.0) mg/dL Est Cr Clr Drug Dosing mL/min Estimated GFR (MDRD) ml/min Glucose (74-106) mg/dL POC Glucose 273 H 291 H (60-110) mg/dL Calcium (8.5-10.1) mg/dL Magnesium (1.8-2.4) mg/dL Vancomycin Trough 7.5 (5.0-10.0) ug/mL 04/19/20 04/20/20 04/20/20 Range/Units 20:22 05:43 05:43 WBC 6.99 (4.0-11.0) K/uL RBC 3.15 L (4.30-5.90) M/uL Hgb 8.9 L (12.0-16.0) g/dL Hct 27.2 L (36.0-46.0) % MCV 86.3 (80.0-98.0) fL MCH 28.3 (27.0-32.0) pg MCHC 32.7 (31.0-37.0) g/dL RDW Std Deviation 39.8 (28.0-62.0) fl RDW Coeff of Harshil 13 (11.0-15.0) % Plt Count 293 (150-400) K/uL MPV 9.00 (7.40-12.00) fL Neut % (Auto) 51.9 (48.0-80.0) % Lymph % (Auto) 36.2 (16.0-40.0) % Windham % (Auto) 9.9 (0.0-15.0) % Eos % (Auto) 1.9 (0.0-7.0) % Baso % (Auto) 0.1 (0.0-1.5) % Neut # (Auto) 3.6 (1.4-5.7) K/uL Lymph # (Auto) 2.5 H (0.6-2.4) K/uL Windham # (Auto) 0.7 (0.0-0.8) K/uL Eos # (Auto) 0.1 (0.0-0.7) K/uL Baso # (Auto) 0.0 (0.0-0.1) K/uL Nucleated RBC % 0.0 /100WBC Nucleated RBCs # 0 K/uL Sodium 139 (136-145) mmol/L Potassium 3.7 (3.5-5.1) mmol/L Chloride 105 (98-107) mmol/L Carbon Dioxide 26.3 (21.0-32.0) mmol/L BUN 2 L (7.0-18.0) mg/dL Creatinine 0.4 L (0.6-1.0) mg/dL Est Cr Clr Drug Dosing 126.81 mL/min Estimated GFR (MDRD) > 60.0 ml/min Glucose 197 H (74-106) mg/dL POC Glucose 235 H (60-110) mg/dL Calcium 8.0 L (8.5-10.1) mg/dL Magnesium 1.8 (1.8-2.4) mg/dL Vancomycin Trough (5.0-10.0) ug/mL 04/20/20 Range/Units 06:11 WBC (4.0-11.0) K/uL RBC (4.30-5.90) M/uL Hgb (12.0-16.0) g/dL Hct (36.0-46.0) % MCV (80.0-98.0) fL MCH (27.0-32.0) pg MCHC (31.0-37.0) g/dL RDW Std Deviation (28.0-62.0) fl RDW Coeff of Harshil (11.0-15.0) % Plt Count (150-400) K/uL MPV (7.40-12.00) fL Neut % (Auto) (48.0-80.0) % Lymph % (Auto) (16.0-40.0) % Windham % (Auto) (0.0-15.0) % Eos % (Auto) (0.0-7.0) % Baso % (Auto) (0.0-1.5) % Neut # (Auto) (1.4-5.7) K/uL Lymph # (Auto) (0.6-2.4) K/uL Windham # (Auto) (0.0-0.8) K/uL Eos # (Auto) (0.0-0.7) K/uL Baso # (Auto) (0.0-0.1) K/uL Nucleated RBC % /100WBC Nucleated RBCs # K/uL Sodium (136-145) mmol/L Potassium (3.5-5.1) mmol/L Chloride (98-107) mmol/L Carbon Dioxide (21.0-32.0) mmol/L BUN (7.0-18.0) mg/dL Creatinine (0.6-1.0) mg/dL Est Cr Clr Drug Dosing mL/min Estimated GFR (MDRD) ml/min Glucose (74-106) mg/dL POC Glucose 188 H (60-110) mg/dL Calcium (8.5-10.1) mg/dL Magnesium (1.8-2.4) mg/dL Vancomycin Trough (5.0-10.0) ug/mL KAMRAN Results - Last 24 hrs: Microbiology 04/19/20 21:15 Stool Occult Blood (KAMRAN) - Final Stool / Feces 04/15/20 11:28 Aerobic Blood Culture - Preliminary Blood - Venous - Lab Draw NO GROWTH AFTER 4 DAYS Anaerobic Blood Culture - Preliminary NO GROWTH AFTER 4 DAYS 04/15/20 11:12 Aerobic Blood Culture - Preliminary Blood - Venous NO GROWTH AFTER 4 DAYS Anaerobic Blood Culture - Preliminary NO GROWTH AFTER 4 DAYS Med Orders - Current: Current Medications Acetaminophen (Tylenol Extra Strength) 500 mg PO Q6H PRN PRN Reason: Fever Last Admin: 04/17/20 19:25 Dose: 500 mg Documented by: Hydrocodone Bitart/Acetaminophen (Llano 325-5 Mg) 1 tab PO Q4H PRN PRN Reason: Pain Last Admin: 04/20/20 07:42 Dose: 1 tab Documented by: Bisacodyl (Dulcolax) 10 mg RECTAL DAILY PRN PRN Reason: Constipation Docusate Sodium (Colace) 100 mg PO BID ALISA Last Admin: 04/20/20 08:54 Dose: 100 mg Documented by: Ceftriaxone Sodium/Dextrose 1 (gm/ Premix) 50 mls @ 100 mls/hr IV Q24H [facility] Last Admin: 04/19/20 12:40 Dose: 100 mls/hr Documented by: Vancomycin HCl 1.25 gm/ Sodium (Chloride) 250 mls @ 166.667 mls/hr IV Q8H [facility] Last Admin: 04/20/20 07:36 Dose: Not Given Documented by: Ibuprofen (Motrin) 400 mg PO Q4H PRN PRN Reason: Pain Last Admin: 04/19/20 04:44 Dose: 400 mg Documented by: Insulin Aspart (Novolog) 0 unit SUBCUT QIDACANDBED [facility]; Protocol Last Admin: 04/20/20 07:27 Dose: 3 unit Documented by: Insulin Aspart (Novolog) 3 unit SUBCUT TIDAC [facility] Last Admin: 04/20/20 07:28 Dose: 3 units Documented by: Insulin Glargine (Lantus Solostar) 16 units SUBCUT DAILY [facility] Last Admin: 04/20/20 09:00 Dose: 16 unit Documented by: Ondansetron HCl (Zofran) 4 mg IVPUSH Q4H PRN PRN Reason: Nausea/Vomiting Last Admin: 04/17/20 05:55 Dose: 4 mg Documented by: Pantoprazole Sodium (Protonix) 40 mg PO ACBREAKFAST [facility] Last Admin: 04/20/20 07:26 Dose: 40 mg Documented by: Polyethylene Glycol (Miralax) 17 gm PO DAILY [facility] Last Admin: 04/20/20 08:57 Dose: 17 gm Documented by: Vancomycin HCl (Pharmacy To Dose - Vancomycin) 1 dose .XX ASDIRECTED [facility] Discontinued Medications Amoxicillin (Amoxil) 500 mg PO ONETIME ONE Stop: 04/20/20 08:36 Last Admin: 04/20/20 08:58 Dose: 500 mg Documented by: Cefazolin Sodium (Ancef) Confirm Administered Dose 2 gm .ROUTE .STK-MED ONE Stop: 04/16/20 08:59 Chloroprocaine HCl (Clorotekal) Confirm Administered Dose 5 ml .ROUTE .STK-MED ONE Stop: 04/17/20 12:05 Clindamycin HCl (Cleocin) 450 mg PO ONETIME ONE Stop: 04/20/20 08:37 Last Admin: 04/20/20 08:57 Dose: 450 mg Documented by: Fentanyl (Sublimaze) Confirm Administered Dose 100 mcg .ROUTE .STK-MED ONE Stop: 04/17/20 12:17 Glycopyrrolate (Robinul) Confirm Administered Dose 0.2 mg .ROUTE .STK-MED ONE Stop: 04/17/20 12:18 Hydrogen Peroxide (Hydrogen Peroxide) 10 ml TOP ONETIME ONE Stop: 04/19/20 10:11 Last Admin: 04/19/20 12:41 Dose: 1 spray Documented by: Hydromorphone HCl (Dilaudid) 1 mg IM ONETIME ONE Stop: 04/17/20 13:35 Last Admin: 04/17/20 13:40 Dose: 0.5 mg Documented by: Hydromorphone HCl (Dilaudid) Confirm Administered Dose 2 mg .ROUTE .STK-MED ONE Stop: 04/17/20 13:37 Last Admin: 04/18/20 08:58 Dose: Not Given Documented by: Sodium Chloride (Normal Saline) 1,000 mls @ 999 mls/hr IV BOLUS ONE Stop: 04/15/20 11:23 Last Admin: 04/15/20 10:37 Dose: 999 mls/hr Documented by: Ceftriaxone Sodium/Dextrose 2 (gm/ Premix) 50 mls @ 100 mls/hr IV ONETIME ONE Stop: 04/15/20 11:32 Last Admin: 04/15/20 11:14 Dose: 100 mls/hr Documented by: Lactated Ringer's (Ringers, Lactated) 1,000 mls @ 999 mls/hr IV ASDIRECTED [facility] Last Admin: 04/15/20 12:52 Dose: 999 mls/hr Documented by: Insulin Human Regular 100 unit (/ Sodium Chloride) 100 mls @ 6 mls/hr IV TITRATE ALISA; Protocol Last Titration: 04/16/20 18:30 Dose: 0 unit/hr, 0 mls/hr Documented by: Lactated Ringer's (Ringers, Lactated) 1,000 mls @ 999 mls/hr IV ASDIRECTED [facility] Last Admin: 04/15/20 15:15 Dose: 200 mls/hr Documented by: Vancomycin HCl 1.5 gm/ Premix 300 mls @ 150 mls/hr IV ONETIME ONE Stop: 04/15/20 14:29 Last Admin: 04/15/20 12:52 Dose: 150 mls/hr Documented by: Sodium Chloride (Normal Saline) 1,000 mls @ 200 mls/hr IV CONTINUOUS ONE Stop: 04/15/20 20:05 Last Admin: 04/15/20 20:14 Dose: 200 mls/hr Documented by: Pantoprazole Sodium 40 mg/ (Sodium Chloride) 10 mls @ 300 mls/hr IV DAILY [facility] Last Admin: 04/19/20 08:59 Dose: 300 mls/hr Documented by: Ceftriaxone Sodium 1 gm/ (Sodium Chloride) 50 mls @ 100 mls/hr IV Q24H ALISA Vancomycin HCl 1.25 gm/ Sodium (Chloride) 250 mls @ 166.667 mls/hr IV Q12H [facility] Last Admin: 04/19/20 16:01 Dose: Not Given Documented by: Dextrose/Sodium Chloride (Dextrose 5%-1/2 Ns) 1,000 mls @ 200 mls/hr IV ASDIRECTED [facility] Last Admin: 04/16/20 06:21 Dose: 200 mls/hr Documented by: Potassium Chloride 40 meq/ (Premix) 100 mls @ 25 mls/hr IV ONETIME ONE Stop: 04/16/20 09:09 Last Admin: 04/16/20 05:20 Dose: 25 mls/hr Documented by: Lactated Ringer's (Ringers, Lactated) 1,000 mls @ 500 mls/hr IV ASDIRECTED [facility] Last Admin: 04/16/20 12:58 Dose: 500 mls/hr Documented by: Potassium Phosphate 15 mmole/ (Sodium Chloride) 255 mls @ 63.75 mls/hr IV NOW ONE Stop: 04/16/20 13:29 Last Admin: 04/16/20 09:21 Dose: 63.75 mls/hr Documented by: Dextrose/Sodium Chloride (Dextrose 5%-1/2 Ns) 1,000 mls @ 150 mls/hr IV ASDIRECTED [facility] Last Admin: 04/16/20 11:45 Dose: 150 mls/hr Documented by: Lactated Ringer's (Ringers, Lactated) 1,000 mls @ 100 mls/hr IV ASDIRECTED [facility] Lactated Ringer's (Ringers, Lactated) 1,000 mls @ 75 mls/hr IV ASDIRECTED [facility] Last Admin: 04/18/20 22:16 Dose: 75 mls/hr Documented by: Magnesium Sulfate 2 gm/ Premix 50 mls @ 50 mls/hr IV ONETIME ONE Stop: 04/17/20 08:25 Last Admin: 04/17/20 07:59 Dose: 50 mls/hr Documented by: Potassium Phosphate 27 mmole/ (Sodium Chloride) 509 mls @ 127.25 mls/hr IV ONETIME ONE Stop: 04/17/20 12:09 Last Admin: 04/17/20 08:24 Dose: 127.25 mls/hr Documented by: Magnesium Sulfate 2 gm/ Premix 50 mls @ 50 mls/hr IV ONETIME ONE Stop: 04/18/20 09:06 Last Admin: 04/18/20 08:42 Dose: 50 mls/hr Documented by: Insulin Glargine (Lantus Solostar) 10 units SUBCUT DAILY [facility] Last Admin: 04/17/20 09:29 Dose: 10 units Documented by: Insulin Glargine (Lantus Solostar) 12 units SUBCUT DAILY [facility] Last Admin: 04/18/20 08:17 Dose: 12 units Documented by: Insulin Glargine (Lantus Solostar) 14 units SUBCUT DAILY [facility] Last Admin: 04/19/20 09:01 Dose: 14 unit Documented by: Insulin Human Regular (Novolin R) Confirm Administered Dose 1,000 unit .ROUTE .STK-MED ONE Stop: 04/15/20 12:47 Last Admin: 04/15/20 12:52 Dose: Not Given Documented by: Iopamidol (Isovue Multipack-370 (76%)) 80 ml IVPUSH ONETIME ONE Stop: 04/15/20 13:08 Last Admin: 04/15/20 13:08 Dose: 80 ml Documented by: Ketorolac Tromethamine (Toradol) Confirm Administered Dose 30 mg .ROUTE .STK-MED ONE Stop: 04/17/20 12:18 Lidocaine HCl (Xylocaine-Mpf 1%) Confirm Administered Dose 5 ml .ROUTE .STK-MED ONE Stop: 04/17/20 12:18 Midazolam HCl (Versed 1 Mg/Ml) Confirm Administered Dose 2 mg .ROUTE .STK-MED ONE Stop: 04/17/20 12:17 Morphine Sulfate (Morphine) 1 mg IVPUSH Q3H PRN PRN Reason: Pain Last Admin: 04/17/20 23:17 Dose: 1 mg Documented by: Ondansetron HCl (Zofran) 4 mg IVPUSH ONETIME ONE Stop: 04/15/20 10:24 Last Admin: 04/15/20 10:37 Dose: 4 mg Documented by: Ondansetron HCl (Zofran) 8 mg IVPUSH Q6H PRN PRN Reason: Nausea Last Admin: 04/16/20 20:57 Dose: 8 mg Documented by: Ondansetron HCl (Zofran) Confirm Administered Dose 4 mg .ROUTE .STK-MED ONE Stop: 04/17/20 12:18 Potassium Chloride (Klor-Con M20) 40 meq PO ONETIME ONE Stop: 04/18/20 08:05 Last Admin: 04/18/20 08:40 Dose: 40 meq Documented by: Potassium Chloride (Klor-Con M20) 20 meq PO ONETIME ONE Stop: 04/18/20 08:06 Last Admin: 04/18/20 08:41 Dose: 20 meq Documented by: Propofol (Diprivan 20 Ml) Confirm Administered Dose 200 mg .ROUTE .STK-MED ONE Stop: 04/17/20 12:17 Sodium Phosphate (Neutra-Phos) 250 mg PO ONETIME ONE Stop: 04/16/20 19:00 Last Admin: 04/16/20 20:36 Dose: Not Given Documented by: Sodium Phosphate (Neutra-Phos) 250 mg PO QID ALISA Last Admin: 04/17/20 05:01 Dose: 250 mg Documented by: Sodium Phosphate (Neutra-Phos) 250 mg PO ONETIME ONE Stop: 04/17/20 07:32 - Exam General: Reports: Alert, Oriented, Cooperative, No Acute Distress Lungs: Reports: Clear to Auscultation, Normal Respiratory Effort Cardiovascular: Reports: Regular Rate, Regular Rhythm GI/Abdominal Exam: Normal Bowel Sounds, Soft, Non-Tender Wound/Incisions: Reports: Healing Well, Dressing Dry and Intact, Drainage, Erythema Improving Psy/Mental Status: Reports: Alert, Normal Affect, Normal Mood
== END 2020-04-20 12:45 | disposition home or self-care (01) | DRG 853 ==
LOC: MW.ED 09:47 → MW.ICU 11:12 → MW.MS 04-17 18:31
PROVIDERS: ADMIT Internal Medicine; ATTEND Internal Medicine
PROC: 0UBM0ZZ Excision of Vulva, Open Approach (ICD-10-PCS; principal; 2020-04-17)
PROC: 0U9M0ZZ Drainage of Vulva, Open Approach (ICD-10-PCS; 2020-04-17)
DX: A41.9 Sepsis, unspecified organism (principal); E11.10 Type 2 diabetes mellitus with ketoacidosis without coma; N76.4 Abscess of vulva; N17.9 Acute kidney failure, unspecified; E87.1 Hypo-osmolality and hyponatremia; Z20.828 Contact with and (suspected) exposure to other viral communicable diseases; E86.0 Dehydration; K59.00 Constipation, unspecified; R09.02 Hypoxemia; Z88.2 Allergy status to sulfonamides
CPT/HCPCS: 00940; 36415; 36600; 71045; 71045-26; 72193; 72193-26; 80048; 80053; 80202; 81001; 81025; 82009; 82272; 82803; 82962; 83036; 83605; 83690; 83735; 83930; 84100; 84484; 85025; 85610; 87040; 87070; 87075; 87086; 87186; 87205; 93005; 96361; 96374; 97161-GP; 99284; 99285-25; A9270-GY; C9113; J0690; J0696; J1170; J1815-GY; J1885; J2001; J2250; J2270; J2400; J2405; J2704; J3010; J3370; J3475; J3480; J3490; J7030; J7040; J7042; J7050; J7120; Q9967; U0002

== ENCOUNTER 2023-05-18 19:20 | Inpatient (IN) | payer MEDICAID ==
[2023-05-18] MEDS ORDERED: Piperacillin/Tazobactam 4.5 GM in Sodium Chloride 0.9% 100 ML IV ONE (19:58)
[2023-05-18] MEDS ORDERED: Clindamycin Phosphate in D5W 600 MG in Premix Bag 1 BAG IV ONE ×2 (19:58)
[2023-05-18 20:39] LABS: BASOPHILS PERCENT AUTO 0.4 % (0.0-1.5); EOSINOPHILS ABSOLUTE AUTO 0.2 K/uL (0.0-0.7); EOSINOPHILS PERCENT AUTO 1.9 % (0.0-7.0); HEMOGLOBIN 10.8 g/dL (12.0-16.0); LYMPHOCYTES ABSOLUTE AUTO 2.5 K/uL (0.6-2.4); LYMPHOCYTES PERCENT AUTO 26.3 % (16.0-40.0); MEAN CORPUSCULAR HEMOGLOBIN 28.2 pg (27.0-32.0); MEAN CORPUSCULAR HGB CONC 32.7 g/dL (31.0-37.0); MEAN CORPUSCULAR VOLUME 86.2 fL (80.0-98.0); MONOCYTES ABSOLUTE AUTO 0.8 K/uL (0.0-0.8); MONOCYTES PERCENT AUTO 8.4 % (0.0-15.0); NEUTROPHILS ABSOLUTE AUTO 5.9 K/uL (1.4-5.7); NRBC ABSOLUTE 0 K/uL; PLATELET COUNT,PLT 301 K/uL (150-400); RED BLOOD CELL COUNT 3.83 M/uL (4.30-5.90)
[2023-05-18 21:04] LABS: A/G RATIO 0.8 (0.9-1.6); ALBUMIN 3.3 g/dL (3.4-5.0); BILIRUBIN TOTAL 0.3 mg/dL (0.2-1.0); C-REACTIVE PROTEIN 2.9 mg/dL (0.00-0.90); CALCIUM 8.5 mg/dL (8.5-10.1); CARBON DIOXIDE,CO2 29.1 mmol/L (21.0-32.0); CREATININE 0.7 mg/dL (0.6-1.0); EST CRCL DRUG DOSING (CG) 66.75 mL/min; POTASSIUM,K 4.6 mmol/L (3.5-5.1); PROTEIN TOTAL,TP 7.5 g/dL (6.4-8.2)
[2023-05-18 21:06] LABS: INR < 0.93 (0.86-1.11)
[2023-05-18 21:12] LABS: LACTIC ACID 1.3 mmol/L (0.4-2.0)
[2023-05-18] MEDS ORDERED: Iopamidol 755 MG/ML 500 ML Multipack Bottle IVPUSH ONE (21:39)
[2023-05-18] MEDS ORDERED: Polyethylene Glycol 3350 Powder 17 GM Packet PO PRN (23:20)
[2023-05-18] MEDS ORDERED: Sodium Chloride 0.9% 20 ML SDV IV PRN (23:20)
[2023-05-18] MEDS ORDERED: Albuterol/Ipratropium 3.0-0.5 MG/3 ML Neb Soln NEB PRN (23:20)
[2023-05-18] MEDS ORDERED: Ondansetron 4 MG/2 ML SDV IVPUSH PRN (23:20)
[2023-05-18] MEDS ORDERED: oxyCODONE 5 MG Tab PO PRN (23:20)
[2023-05-18] MEDS ORDERED: Sodium Chloride 0.9% 2.5 ML Syringe FLUSH PRN (23:20)
[2023-05-18] MEDS ORDERED: Sodium Chloride 0.9% 10 ML Syringe FLUSH PRN (23:20)
[2023-05-18] MEDS ORDERED: 50% Dextrose in Water 50 ML Syringe IVPUSH PRN (23:26)
[2023-05-18] MEDS ORDERED: Glucagon,Human Recombinant 1 MG Vial IM PRN (23:26)
[2023-05-18] MEDS ORDERED: Piperacillin/Tazobactam 4.5 GM in Sodium Chloride 0.9% 100 ML IV SCH (23:30)
[2023-05-19] MEDS: Acetaminophen 325 MG Tab PO SCH ×2 (00:18→04:35)
[2023-05-19] MEDS: Heparin Sodium 5,000 Units/ML Vial SUBCUT SCH ×3 (00:18→23:58)
[2023-05-19] MEDS ORDERED: Piperacillin/Tazobactam 4.5 GM in Sodium Chloride 0.9% 100 ML IV SCH (04:30)
[2023-05-19 06:12] LABS: BASOPHILS PERCENT AUTO 0.4 % (0.0-1.5); EOSINOPHILS ABSOLUTE AUTO 0.1 K/uL (0.0-0.7); EOSINOPHILS PERCENT AUTO 1.9 % (0.0-7.0); HEMATOCRIT 31.3 % (36.0-46.0); HEMOGLOBIN 10.1 g/dL (12.0-16.0); LYMPHOCYTES ABSOLUTE AUTO 2.1 K/uL (0.6-2.4); LYMPHOCYTES PERCENT AUTO 27.6 % (16.0-40.0); MEAN CORPUSCULAR HGB CONC 32.3 g/dL (31.0-37.0); MEAN CORPUSCULAR VOLUME 86.7 fL (80.0-98.0); MONOCYTES ABSOLUTE AUTO 0.7 K/uL (0.0-0.8); MONOCYTES PERCENT AUTO 9.7 % (0.0-15.0); NEUTROPHILS ABSOLUTE AUTO 4.5 K/uL (1.4-5.7); NEUTROPHILS PERCENT AUTO 60.4 % (48.0-80.0); NRBC ABSOLUTE 0 K/uL; PLATELET COUNT,PLT 281 K/uL (150-400); RED BLOOD CELL COUNT 3.61 M/uL (4.30-5.90); WHITE BLOOD CELL COUNT,WBC 7.43 K/uL (4.0-11.0)
[2023-05-19 06:43] LABS: A/G RATIO 0.8 (0.9-1.6); ALBUMIN 2.8 g/dL (3.4-5.0); BILIRUBIN TOTAL 0.4 mg/dL (0.2-1.0); C-REACTIVE PROTEIN 2.3 mg/dL (0.00-0.90); CALCIUM 8.5 mg/dL (8.5-10.1); CARBON DIOXIDE,CO2 27.3 mmol/L (21.0-32.0); CREATININE 0.9 mg/dL (0.6-1.0); EST CRCL DRUG DOSING (CG) 49.53 mL/min; MAGNESIUM 1.9 mg/dL (1.8-2.4); POTASSIUM,K 4.4 mmol/L (3.5-5.1); PROTEIN TOTAL,TP 6.4 g/dL (6.4-8.2)
[2023-05-19] MEDS: Insulin Aspart 100 Units/ML 3 ML Pen SUBCUT SCH ×3 (07:46→16:58)
[2023-05-19] MEDS ORDERED: Acetaminophen 325 MG Tab PO PRN (09:16)
[2023-05-19] MEDS: Ampicillin/Sulbactam Na 3 GM in Sodium Chloride 0.9% 100 ML IV SCH ×2 (12:01→18:18)
[2023-05-19] MEDS ORDERED: Insulin Aspart 100 Units/ML 3 ML Pen SUBCUT SCH (17:30)
[2023-05-19] MEDS ORDERED: Furosemide 20 MG/2 ML VIAL IVPUSH ONE (18:45)
[2023-05-19] MEDS ORDERED: Insulin Glargine,Hum.Rec.Anlog 100 UNIT/ML 3 ML Pen SUBCUT SCH (21:00)
[2023-05-20] MEDS: Ampicillin/Sulbactam Na 3 GM in Sodium Chloride 0.9% 100 ML IV SCH ×2 (01:14→05:18)
[2023-05-20 05:57] LABS: BASOPHILS PERCENT AUTO 0.6 % (0.0-1.5); EOSINOPHILS ABSOLUTE AUTO 0.2 K/uL (0.0-0.7); EOSINOPHILS PERCENT AUTO 2.4 % (0.0-7.0); HEMATOCRIT 34.2 % (36.0-46.0); HEMOGLOBIN 11.1 g/dL (12.0-16.0); LYMPHOCYTES ABSOLUTE AUTO 2.5 K/uL (0.6-2.4); LYMPHOCYTES PERCENT AUTO 34.4 % (16.0-40.0); MEAN CORPUSCULAR HGB CONC 32.5 g/dL (31.0-37.0); MEAN CORPUSCULAR VOLUME 86.4 fL (80.0-98.0); MONOCYTES ABSOLUTE AUTO 0.5 K/uL (0.0-0.8); MONOCYTES PERCENT AUTO 7.2 % (0.0-15.0); NEUTROPHILS PERCENT AUTO 55.4 % (48.0-80.0); NRBC ABSOLUTE 0 K/uL; PLATELET COUNT,PLT 342 K/uL (150-400); RED BLOOD CELL COUNT 3.96 M/uL (4.30-5.90); WHITE BLOOD CELL COUNT,WBC 7.18 K/uL (4.0-11.0)
[2023-05-20 06:31] LABS: A/G RATIO 0.8 (0.9-1.6); ALBUMIN 3.2 g/dL (3.4-5.0); BILIRUBIN TOTAL 0.4 mg/dL (0.2-1.0); CALCIUM 8.6 mg/dL (8.5-10.1); CARBON DIOXIDE,CO2 25.9 mmol/L (21.0-32.0); CREATININE 0.9 mg/dL (0.6-1.0); EST CRCL DRUG DOSING (CG) 49.53 mL/min; POTASSIUM,K 4.9 mmol/L (3.5-5.1); PROTEIN TOTAL,TP 7.4 g/dL (6.4-8.2)
[2023-05-20] MEDS ORDERED: Insulin Aspart 100 Units/ML 3 ML Pen SUBCUT SCH ×2 (08:00→12:00)
[2023-05-20] MEDS: Insulin Aspart 100 Units/ML 3 ML Pen SUBCUT SCH (08:23)
[2023-05-20] MEDS ORDERED: Hydrochlorothiazide 12.5 MG Cap PO SCH (09:15)
== END 2023-05-20 11:50 | disposition home or self-care (01) | DRG 602 ==
LOC: MW.ED 19:20 → MW.MS 23:09
PROVIDERS: ADMIT Family Medicine; ATTEND Family Medicine
DX: L03.116 Cellulitis of left lower limb (principal); E11.10 Type 2 diabetes mellitus with ketoacidosis without coma; Z68.42 Body mass index [BMI] 45.0-49.9, adult; E11.610 Type 2 diabetes mellitus with diabetic neuropathic arthropathy; E11.42 Type 2 diabetes mellitus with diabetic polyneuropathy; E66.01 Morbid (severe) obesity due to excess calories; L08.9 Local infection of the skin and subcutaneous tissue, unspecified; Z88.2 Allergy status to sulfonamides; Z79.2 Long term (current) use of antibiotics; Z79.4 Long term (current) use of insulin; Z79.899 Other long term (current) drug therapy
CPT/HCPCS: 36415; 73701-26-LT; 73701-LT; 80053; 80202; 82009; 82947; 83605; 83735; 85025; 85610; 85652; 86140; 87040; 96365; 96366; 96367; 96368; 97161-GP; 99222; 99232; 99239; 99284; 99284-25; A9270-GY; J0295; J1644; J1815-GY; J1940; J2543; J3370; J3490; J7050; Q9967